=== PATIENT | female | born 1990 ===

== ENCOUNTER 2017-02-06 14:16 | Inpatient (IN) | payer MEDICAID ==
[2017-02-06 14:16] VITALS: BMI 45.3
[2017-02-06] MEDS ORDERED: Sodium Chloride 0.9% 1,000 ML IV ONE (15:12)
[2017-02-06] MEDS ORDERED: Sodium Chloride 0.9% 1,000 ML ONE ×2 (15:16→16:23)
[2017-02-06] MEDS ORDERED: Morphine 4 MG/ML VIAL ONE (15:16)
[2017-02-06 15:40] LABS: BASO % 0.2 % (0.0-2.0); EOS % 0.1 % (0.0-4.0); HEMATOCRIT 39.7 % (34.0-47.0); LYMPH # 0.8 K/uL (1.0-4.3); LYMPH % 5.3 % (20.0-40.0); MEAN CELL VOLUME 85.9 fL (81.0-99.0); MEAN CORPUSCULAR HEMOGLOBIN 28.5 pg (27.0-31.0); MEAN CORPUSCULAR HGB CONC 33.1 g/dL (33.0-37.0); MEAN PLATELET VOLUME 8.2 fL (7.2-11.7); MONO # 1.1 K/uL (0.0-0.8); MONO % 7.1 % (0.0-10.0); PLATELET COUNT 341 K/uL (130-400); WHITE BLOOD COUNT 15.3 K/uL (4.8-10.8)
[2017-02-06 15:47] LABS: RBC URINE 61 /hpf (0-3); URINE BACTERIA RARE (<OCC); URINE BILIRUBIN NEGATIVE (NEGATIVE); URINE BLOOD 2+ (NEGATIVE); URINE COLOR Yellow (YELLOW); URINE GLUCOSE (UA) NORMAL (Normal); URINE HYALINE CAST 0-2 /lpf (0-2); URINE KETONE NEGATIVE (NEGATIVE); URINE LEUKOCYTE ESTERASE TRACE Leu/uL (Negative); URINE PROTEIN 2+ mg/dL (NEGATIVE); URINE UROBILINOGEN NORMAL mg/dL (0.2-1.0); WBC URINE 15 /hpf (0-5)
--- NOTE | 2017-02-06 15:48 | C.PDOC ---
History Of Present Illness 26 y/o female brought in by EMS for evaluation of change in mental status and questionable seizure activity. Pt has not had xanax or oxycodone in the last 5 days. Patient's chronic pain medications discontinued by Dr Guillaume due to narcotic addiction. Pt with history of gastric bypass with multiple complications in 08/2016, with persistent Kingsley Pryor drains. Denies fever, chills, chest pain, SOB or any other complaints. Time Seen by Provider: 02/06/17 14:50 Chief Complaint (Nursing): Headache History Per: Patient History/Exam Limitations: no limitations Current Symptoms Are (Timing): Still Present Severity: Mild Preceeding Symptoms: None Recent travel outside of the [place]: No Past Medical History Reviewed: Historical Data, Nursing Documentation, Vital Signs Vital Signs: Last Vital Signs Temp 98.7 F 02/06/17 22:00 Pulse 104 H 02/06/17 22:00 Resp 18 02/06/17 22:00 BP 147/106 H 02/06/17 22:00 Pulse Ox 100 02/06/17 22:00 - Medical History PMH: HTN Denies: Chronic Kidney Disease - [facility] Procedures INSERTION OF INFUSION DEV INTO R BASILIC VEIN, PERC APPROACH (09/08/16) MANUAL ASSIST DELIV NEC (05/14/15) REPAIR OB LACERATION NEC (05/14/15) Family History: States: Unknown Family Hx - Social History Hx Tobacco Use: No Hx Alcohol Use: No Hx Substance Use: No - Immunization History Hx Tetanus Toxoid Vaccination: No Hx Influenza Vaccination: No Hx Pneumococcal Vaccination: No Review Of Systems Except As Marked, All Systems Reviewed And Found Negative. Constitutional: Negative for: Fever Cardiovascular: Negative for: Chest Pain Respiratory: Negative for: Shortness of Breath Gastrointestinal: Negative for: Vomiting Neurological: Positive for: Altered Mental Status. Negative for: Weakness, Numbness Physical Exam - Physical Exam Appears: Non-toxic, No Acute Distress, Other (obese) Skin: Warm, Dry, No Rash Head: Atraumatic, Normacephalic Eye(s): bilateral: Other (wide dilated pupils) Neck: Normal, Normal ROM, Supple Chest: Symmetrical, No Tenderness Cardiovascular: Rhythm Regular, No Murmur Respiratory: Normal Breath Sounds, No Rales, No Rhonchi, No Wheezing Gastrointestinal/Abdominal: Soft, No Tenderness, Other (3 drains to abdomen) Extremity: Normal ROM Extremity: Bilateral: Atraumatic Neurological/Psych: Other (bizarre) ED Course And Treatment - Laboratory Results Result Diagrams: 02/06/17 15:36 02/06/17 15:36 Lab Interpretation: Abnormal (lactate 6.3 H) ECG: Interpreted By Me ECG Rhythm: Sinus Tachycardia ECG Interpretation: Abnormal Rate From EC O2 Sat by Pulse Oximetry: 100 (room air) Pulse Ox Interpretation: Normal - Radiology CXR: Interpreted by Me CXR Interpretation: Yes: No Acute Disease, Other (good PICC line from L arm, ok for use.) - CT Scan/US CT Head Other Rad Studies (CT/US): Interpreted By Me, Read By Radiologist, Radiology Report Reviewed CT/US Interpretation: IMPRESSION: Patchy white matter hypodensities in the occipital parietal regions, right greater than left. 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 Recommend MRI for further evaluation. Findings discussed with Dr. Foley on 02/06/17 at 6:[address] A/P Other Rad Studies (CT/US): Interpreted By Me, Read By Radiologist, Radiology Report Reviewed CT/US Interpretation: IMPRESSION: No evidence of bowel obstruction. Postoperative findings consistent with prior bariatric surgery. Absence of oral contrast precludes optimal assessment of the stomach/gastric remnant and findings associated with the stomach and small bowel. Progress Note: Discussed case with Dr Guillaume at 1600, multiple recent CTs showing improvement, pending removal of drains. He referred patient to methadone clinic but patient has not followed up. Multiple family members at bedside. High blood pressure treated with lebatalol and nitro paste. Questionable anxiety and depression with decreased mental status prior to surgery . Paged ICU at 1840. d/w Dr. Narvaez-ICU @ 1930, ok to ICU. d/w Dr. Aguilar- Medicine Rn Acute Care- ok to Adm to ICU Reevaluation Time: 19:43 Reassessment Condition: Improved Critical Care Time - Critical Care Note Total Time (in mins): 90 Documented critical care: time excludes all time spent performing seperately billable procedures. Medical Decision Making Medical Decision Making: acute on chronic uncontrolled HTN narcotic and benzo withdrawal- longstanding oxycodone stopped about 4-5days ago Prior referral to [facility]- lost to follow-up chronic indwelling JOZEF drains from GBP surgery 08/25/[address] Guillaume @ [place]- encourages call for f/u by Surgery PRN: [phone] cell Surgical Consult not urgent at this time. Disposition Doctor Will See Patient In The: Hospital Counseled Patient/Family Regarding: Studies Performed, Diagnosis - Disposition Disposition: HOSPITALIZED Disposition Time: 19:46 Condition: FAIR - Clinical Impression Clinical Impression: Seizure, Narcotic withdrawal, Benzodiazepine withdrawal, Change in mental status - Scribe Statement The provider has reviewed the documentation as recorded by the William Valdovinos Provider Attestation: All medical record entries made by the William were at my direction and personally dictated by me. I have reviewed the chart and agree that the record accurately reflects my personal performance of the history, physical exam, medical decision making, and the department course for this patient. I have also personally directed, reviewed, and agree with the discharge instructions and disposition.
[2017-02-06 15:50] LABS: CHLORIDE 97 mmol/L (98-107); POTASSIUM 3.4 mmol/L (3.6-5.2); SODIUM 135 mmol/L (132-148)
[2017-02-06 15:51] LABS: ALB/GLOB RATIO 1.1 (1.0-2.1); ALKALINE PHOSPHATASE 87 U/L (38-126); ALT/SGPT 25 U/L (9-52); AST/SGOT 21 U/L (14-36); BILIRUBIN,TOTAL 0.6 mg/dL (0.2-1.3); BLOOD UREA NITROGEN 9 mg/dL (7-17); CALCIUM 9.2 mg/dl (8.6-10.4); CARBON DIOXIDE 24 mmol/L (22-30); GFR AFRICAN-AMERICAN > 60; GLUCOSE,RANDOM 101 mg/dL (65-105); TOTAL PROTEIN 8.1 g/dL (6.3-8.3)
[2017-02-06 15:59] LABS: NEUTROPHIL 96 % (50-75); TOTAL CELLS COUNTED 100
[2017-02-06] MEDS ORDERED: Labetalol 25mg/5ml Syringe IV STA ×2 (16:16→18:38)
[2017-02-06] MEDS ORDERED: Labetalol 25mg/5ml Syringe ONE ×2 (16:22→18:49)
[2017-02-06 16:25] LABS: VENOUS BLOOD GAS BASE EXCESS -5.8 mmol/L (0.0-2.0); VENOUS BLOOD GAS PCO2 32 mmHg (40-60); VENOUS BLOOD PH 7.37 (7.32-7.43)
--- NOTE | 2017-02-06 16:57 | RAD ---
HISTORY: confirm PICC line placement portable study performed 15:36. COMPARISON: No prior. FINDINGS: LUNGS: No active pulmonary disease. PLEURA: No significant pleural effusion identified, no pneumothorax apparent. CARDIOVASCULAR: No radiographic findings to suggest acute or significant cardiovascular disease. PICC line in satisfactory position OSSEOUS STRUCTURES: No significant abnormalities. VISUALIZED UPPER ABDOMEN: Normal. OTHER FINDINGS: None. IMPRESSION: Satisfactory position of recently placed PICC line. The tip is within 5 cm of the cavoatrial junction. No pneumothorax identified Concordant results with the preliminary interpretation rendered by the emergency department physician procedure.
[2017-02-06] MEDS ORDERED: Iohexol 350mg/ml 100 ML ONE (17:20)
--- NOTE | 2017-02-06 18:20 | CT ---
PROCEDURE: CT Abdomen and Pelvis with contrast HISTORY: bariatric 08/20, 3 drains, chronic pain COMPARISON: None. TECHNIQUE: Contrast dose: 100 cc Omnipaque 350 Radiation dose: Total exam DLP = 744.03 mGy-cm. This CT exam was performed using one or more of the following dose reduction techniques: Automated exposure control, adjustment of the mA and/or kV according to patient size, and/or use of iterative reconstruction technique. FINDINGS: LOWER THORAX: Esophagogastric stent identified. Fluid debris level identified in the esophagus. Incompletely visualized infiltrates/ atelectasis left lower lobe. Trace associated left pleural effusion. LIVER: Hepatic steatosis. No focal masses. No intrahepatic bile duct dilatation or perihepatic ascites. GALLBLADDER AND BILE DUCTS: Unremarkable. PANCREAS: Unremarkable. No gross lesion or ductal dilatation. SPLEEN: Unremarkable. ADRENALS: Unremarkable. No mass. KIDNEYS AND URETERS: Unremarkable. No hydronephrosis. No solid mass. VASCULATURE: Unremarkable. No aortic aneurysm. BOWEL: Postoperative changes left upper quadrant including the previously identified gastroesophageal stent. Portions of the stomach adjacent to the stent appear either at a focal for partial eventration of the diaphragm or small diaphragmatic hernia. Surgical drains in the left upper quadrant identified. Additional postoperative changes including a small bowel anastomotic suture line and small bowel loops tracking to the surface of the scan left upper quadrant/ostomy. Adjacent intraperitoneal loops of small bowel are unremarkable. APPENDIX: No abnormalities to suggest acute appendicitis. No right lower quadrant inflammatory processes identified. PERITONEUM: Unremarkable. No free fluid. No free air. LYMPH NODES: Unremarkable. No enlarged lymph nodes. BLADDER: Unremarkable. REPRODUCTIVE: Unremarkable. IUD identified precise location cannot be determined on this study. BONES: No acute fracture. OTHER FINDINGS: None. IMPRESSION: No evidence of bowel obstruction. Postoperative findings consistent with prior bariatric surgery. Absence of oral contrast precludes optimal assessment of the stomach/gastric remnant and findings associated with the stomach and small bowel.
--- NOTE | 2017-02-06 18:25 | CT ---
PROCEDURE: CT HEAD WITHOUT CONTRAST. HISTORY: seizure, HTN COMPARISON: None available. TECHNIQUE: Axial computed tomography images were obtained through the head/brain without intravenous contrast. Radiation dose: Total exam DLP = 1062.79 mGy-cm. This CT exam was performed using one or more of the following dose reduction techniques: Automated exposure control, adjustment of the mA and/or kV according to patient size, and/or use of iterative reconstruction technique. FINDINGS: HEMORRHAGE: No intracranial hemorrhage. BRAIN: No mass effect or edema. Patchy white matter hypodensities in the occipital parietal regions, right greater than left. Please note that MRI with diffusion imaging is more sensitive in the detection of acute ischemic event. VENTRICLES: No hydrocephalus. CALVARIUM: Unremarkable. PARANASAL SINUSES: Unremarkable as visualized. No significant inflammatory changes. MASTOID AIR CELLS: Unremarkable as visualized. No inflammatory changes. OTHER FINDINGS: None. IMPRESSION: Patchy white matter hypodensities in the occipital parietal regions, right greater than left. 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 Recommend MRI for further evaluation. Findings discussed with Dr. Foley on 02/06/17 at 6:23 p.m.
[2017-02-06] MEDS ORDERED: Nitroglycerin 2% Ointment Foilpak UD TOP STA (19:02)
[2017-02-06] MEDS ORDERED: Oxycodone/Acetaminophen 5/325 mg Tab PO PRN (19:58)
[2017-02-06] MEDS ORDERED: Nitroglycerin 2% Ointment Foilpak UD TOP ONE (20:01)
--- NOTE | 2017-02-06 20:07 | CP.PCM.CON ---
History of Present Illness - History of Present Illness History of Present Illness: 26F HTN, gastric sleeve 08/19, complicated by ?abscesses and has had multiple interventions, [address], sees surgeon at [facility], last visit as per family was last week. Pt has been on longstanding opiods (percocet, oxycontin) and benzo (xanax). After last visit, pt has not taken any more of these meds. Yesterday, as per mother, pt had an apparent period of AMS lasting approx 20min of which pt displayed "convulsions." Pt then came to. denies tongue biting, denies urinary / fecal incontinence. Pt has c/o headaches, dizziness. Fall today, nontraumatic. Pt with another such episode of "convulsions" today when family called EMS and pt brought to ED. In ED, pt found to be confused, tachycardic, hypertensive. CTH showed no cva/ hemorrhage but was suggestive of possible PRES. In ED, pt stabilized after receiving multiple rounds of labetolol and ativan. ICU now called for admission. PMH/Sx: As above NKDA MEDS: As noted above and as noted in MAR Sochx: No etoh/smoker/illicit drug use Famhx: otherwise Non contributory ROS: other than that listed above, negative PE: Afeb, HR 110s Bp 130s-150s / 90s - 110s RR 18 O2 Sat 99% on 2LNC Gen: lethargic but awake, follow commands Skin: w/d/i; no rashes HEENT: GO. MMM. Evidence of tongue biting Neck: Supple Resp: CTA B/L CVS: RRR. S1, S2. No m/r/g Abd: Soft, NT/ND, BS+ve Ext: No edema neuro: lethargic but awake, alert and oriented x2. CN II-->XII intact. non focal exam. labs reviewed personally as noted below EKG: ST. [facility]. No acute St-T abn CT Head: per radiology report, no acute ischemia/hemorrhage but evidence to suggest PRES CXR: No acute cardio-pulm disease per my read A/P: 26F s/p gastric sleeve, HTN p/w likley withdrawal seizures from BZD, opiod addiction, HTN urgency Admit to ICU Neuro consult per PMD consider EEG resume BZD -- will start klonipin BID; ativan PRN for breakthrough symptoms/ seizures resume PRN opiods for symptomatic relief addiction medicine consult per PMD cards consult per PMD BP control check echo trend enzymes check TSH NPO IVF resuscitation Munoz Gi / DVT PPx Prognosis guarded Long d/w family and discussed the importance of weaning medications and need to follow up with MD mckeon. Wilian Mc MD CC time spent 45min Past Patient History - Past Medical History & Family History Past Medical History?: No - Past Social History Smoking Status: Never Smoked - CARDIAC Hx Hypertension: Yes - PULMONARY Hx Respiratory Disorders: No - NEUROLOGICAL Hx Neurological Disorder: No - HEENT Hx HEENT Problems: No - RENAL Hx Chronic Kidney Disease: No - ENDOCRINE/METABOLIC Hx Endocrine Disorders: No - HEMATOLOGICAL/ONCOLOGICAL Hx Blood Disorders: No - INTEGUMENTARY Hx Dermatological Problems: No - MUSCULOSKELETAL/RHEUMATOLOGICAL Hx Musculoskeletal Disorders: No - GASTROINTESTINAL Hx Gastrointestinal Disorders: No - GENITOURINARY/GYNECOLOGICAL Hx Genitourinary Disorders: No - PSYCHIATRIC Hx Substance Use: No - SURGICAL HISTORY Other/Comment: GASTRIC SLEEVE 08/25/2016. BARIATRIC SX 01/2017 - ANESTHESIA Hx Anesthesia: Yes Meds Allergies/Adverse Reactions: Allergies Allergy/AdvReac Type Severity Reaction Status Date / Time No Known Allergies Allergy Verified 09/08/16 12:07 - Medications Medications: Current Medications Acetaminophen (Tylenol 325mg Tab) 650 mg PO Q6 PRN PRN Reason: Headache Amlodipine Besylate (Norvasc) 10 mg PO DAILY TIFFANIE Clonazepam (Klonopin) 0.5 mg PO BID TIFFANIE Enoxaparin Sodium (Lovenox) 40 mg SC DAILY TIFFANIE Famotidine (Pepcid) 20 mg PO Q12 TIFFANIE Hydromorphone HCl (Dilaudid) 1 mg IVP Q6H PRN PRN Reason: Pain, severe (8-10) Sodium Chloride (Sodium Chloride 0.9%) 1,000 mls @ 100 mls/hr IV .Q10H TIFFANIE Labetalol HCl (Trandate) 400 mg PO Q6 TIFFANIE Lorazepam (Ativan) 2 mg IVP Q2H PRN PRN Reason: Anxiety Morphine Sulfate (Morphine) 4 mg IVP Q4H PRN PRN Reason: Pain, moderate (4-7) Ondansetron HCl (Zofran Inj) 4 mg IVP Q6H PRN PRN Reason: Nausea/Vomiting Oxycodone/Acetaminophen (Percocet 5/325 Mg Tab) 1 tab PO Q4H PRN PRN Reason: Pain, Mild (1-3) Stop: 02/09/17 19:59 Results - Vital Signs Recent Vital Signs: Last Vital Signs Temp 98.8 F 02/06/17 14:18 Pulse 105 H 02/06/17 19:04 Resp 20 02/06/17 19:04 BP 138/96 H 02/06/17 19:04 Pulse Ox 100 02/06/17 19:58 - Labs Result Diagrams: 02/06/17 15:36 02/06/17 15:36
[2017-02-06 20:23] LABS: VENOUS BLOOD GAS BASE EXCESS 0.1 mmol/L (0.0-2.0); VENOUS BLOOD GAS PCO2 39 mmHg (40-60); VENOUS BLOOD PH 7.41 (7.32-7.43)
[2017-02-06] MEDS: Sodium Chloride 0.9% 1,000 ML IV SCH (21:15)
[2017-02-07] MEDS: Sodium Chloride 0.9% 1,000 ML IV SCH ×2 (06:35→16:48)
[2017-02-07] MEDS: Morphine 4 MG/ML VIAL IVP PRN ×3 (06:36→20:24)
[2017-02-07 06:40] LABS: BASO % 0.4 % (0.0-2.0); EOS % 0.2 % (0.0-4.0); LYMPH # 1.2 K/uL (1.0-4.3); LYMPH % 12.7 % (20.0-40.0); MEAN CELL VOLUME 86.7 fL (81.0-99.0); MEAN CORPUSCULAR HEMOGLOBIN 29.1 pg (27.0-31.0); MEAN CORPUSCULAR HGB CONC 33.5 g/dL (33.0-37.0); MEAN PLATELET VOLUME 8.5 fL (7.2-11.7); MONO # 0.9 K/uL (0.0-0.8); MONO % 9.1 % (0.0-10.0); RED CELL DISTRIBUTION WIDTH 13.6 % (11.5-14.5); WHITE BLOOD COUNT 9.8 K/uL (4.8-10.8)
[2017-02-07 06:49] LABS: INR 1.1
[2017-02-07 07:11] LABS: CHLORIDE 100 mmol/L (98-107)
[2017-02-07 07:12] LABS: POTASSIUM 3.3 mmol/L (3.6-5.2); SODIUM 134 mmol/L (132-148)
[2017-02-07 07:14] LABS: ALKALINE PHOSPHATASE 68 U/L (38-126); ALT/SGPT 20 U/L (9-52); AST/SGOT 20 U/L (14-36); BILIRUBIN,TOTAL 0.6 mg/dL (0.2-1.3); BLOOD UREA NITROGEN 9 mg/dL (7-17); CARBON DIOXIDE 26 mmol/L (22-30); GFR AFRICAN-AMERICAN > 60; GLUCOSE,RANDOM 103 mg/dL (65-105); TOTAL PROTEIN 6.7 g/dL (6.3-8.3)
[2017-02-07 07:15] LABS: CALCIUM 8.7 mg/dl (8.6-10.4); MAGNESIUM 1.7 mg/dL (1.6-2.3); PHOSPHOROUS 4.5 mg/dL (2.5-4.5)
[2017-02-07 07:30] LABS: THYROID STIMULATING HORMONE 1.51 mIU/L (0.46-4.68)
[2017-02-07] MEDS ORDERED: Magnesium Sulfate 1 gm in D5W 1 GM/100 ML BAG IVPB ONE (07:41)
[2017-02-07] MEDS: Enoxaparin 40 mg Syringe SC SCH (09:28)
[2017-02-07] MEDS: HYDROmorphone 1 mg/ml ISec IVP PRN ×3 (09:38→22:03)
--- NOTE | 2017-02-07 11:55 | CARD ---
APPROVED REPORT EKG Measurement Heart [id number] <Conclusion> Sinus tachycardia Voltage criteria for left ventricular hypertrophy Cannot rule out Anterior infarct, age undetermined Abnormal ECG
--- NOTE | 2017-02-07 12:19 | CP.PCM.CON ---
<Naeem Garcia - Last Filed: 02/07/17 12:20> History of Present Illness - History of Present Illness History of Present Illness: Surgery: Dr. Bronson CC: s/p bariatric surgery w. intra-abdominal drains HPI: Hx gathered from pt, review of chart, and from discussion w. bariatric surgeon Dr. Clark - . Pt is a 26F w. underwent gastric sleeve in August of 2016. Post-operative course was complicated by leak which required further surgical intervention involving Tahl patch, gastro-jejunostomy? , esophogastric stent, and hilario drain placement x 3. Per Dr. Clark, pt was taking narcotics frequently to manage pain, and recently stopped taking them abruptly. Dr. lCark recommended that pt be seen by substance abuse councilors. Dr. Clark also stated that he would be willing to accept transfer to [facility]. Yesterday pt had witnessed seizure like activity for about 20 minutes at home and was subsequently brought to ED. This morning pt was seen in ICU. Pt is lethargic and at times confused. Questions need to be repeated several times. Currently pt states that she is feeling well. She denies DIEZ/blurred vision, no F /C, no CP/palpitations, no SOB/cough. She has no GI complaints, no N/V/D. Pt initially had 3 hilario drains placed. However 2 of them have become displaced. Pt is unable to specify when this occurred. The drain sites are draining pus. CT done in ED of abd pelvis shows post-surgical changes w. no identifiable abscess/fluid collections. PMH: HTN, obesity PSH: see above Meds: MAR reviewed NKDA Social: No ETOH, tobacco, drugs Fhx: Non-contributory Review of Systems - Review of Systems All systems: reviewed and no additional remarkable complaints except (HPI) Past Patient History - Past Medical History & Family History Past Medical History?: Yes - Past Social History Smoking Status: Never Smoked - CARDIAC Hx Hypertension: Yes - PULMONARY Hx Respiratory Disorders: No - NEUROLOGICAL Hx Neurological Disorder: No - HEENT Hx HEENT Problems: No - RENAL Hx Chronic Kidney Disease: No - ENDOCRINE/METABOLIC Hx Endocrine Disorders: No - HEMATOLOGICAL/ONCOLOGICAL Hx Blood Disorders: No - INTEGUMENTARY Hx Dermatological Problems: No - MUSCULOSKELETAL/RHEUMATOLOGICAL Hx Musculoskeletal Disorders: No Hx Falls: No - GASTROINTESTINAL Hx Gastrointestinal Disorders: No - GENITOURINARY/GYNECOLOGICAL Hx Genitourinary Disorders: No - PSYCHIATRIC Hx Substance Use: No - SURGICAL HISTORY Other/Comment: GASTRIC SLEEVE 08/25/2016. BARIATRIC SX 01/2017 - ANESTHESIA Hx Anesthesia: Yes Meds Allergies/Adverse Reactions: Allergies Allergy/AdvReac Type Severity Reaction Status Date / Time No Known Allergies Allergy Verified 09/08/16 12:07 - Medications Medications: Current Medications Acetaminophen (Tylenol 325mg Tab) 650 mg PO Q6 PRN PRN Reason: Headache Amlodipine Besylate (Norvasc) 10 mg PO DAILY [facility] TO [facility] Last Admin: 02/07/17 09:28 Dose: 10 mg Clonazepam (Klonopin) 0.5 mg PO BID [facility] Last Admin: 02/07/17 09:28 Dose: 0.5 mg Enoxaparin Sodium (Lovenox) 40 mg SC DAILY [facility] Last Admin: 02/07/17 09:28 Dose: 40 mg Famotidine (Pepcid) 20 mg PO Q12 [facility]END[facility] Last Admin: 02/07/17 09:28 Dose: 20 mg Hydromorphone HCl (Dilaudid) 1 mg IVP Q6H PRN PRN Reason: Pain, severe (8-10) Last Admin: 02/07/17 09:38 Dose: 1 mg Sodium Chloride (Sodium Chloride 0.9%) 1,000 mls @ 100 mls/hr IV .Q10H [facility]END[facility] S[facility] TO [facility] Last Admin: 02/07/17 06:35 Dose: Not Given Labetalol HCl (Trandate) 400 mg PO Q6 [facility] Last Admin: 02/07/17 06:35 Dose: 400 mg Lorazepam (Ativan) 2 mg IVP Q2H PRN PRN Reason: Anxiety Morphine Sulfate (Morphine) 4 mg IVP Q4H PRN PRN Reason: Pain, moderate (4-7) Last Admin: 02/07/17 06:36 Dose: 4 mg Ondansetron HCl (Zofran Inj) 4 mg IVP Q6H PRN PRN Reason: Nausea/Vomiting Oxycodone/Acetaminophen (Percocet 5/325 Mg Tab) 1 tab PO Q4H PRN PRN Reason: Pain, Mild (1-3) Stop: 02/09/17 19:59 Pneumococcal Polyvalent Vaccine (Pneumovax 23 Vaccine) 0.5 ml IM .ONCE ONE Stop: 02/08/17 10:01 Physical Exam - Constitutional Appears: Non-toxic, No Acute Distress, Confused Additional comments: lethargic - Head Exam Head Exam: ATRAUMATIC, NORMOCEPHALIC - Eye Exam Eye Exam: EOMI - ENT Exam ENT Exam: Mucous Membranes Moist - Neck Exam Neck exam: Positive for: Full Rom - Respiratory Exam Respiratory Exam: NORMAL BREATHING PATTERN. absent: Accessory Muscle Use, Respiratory Distress - GI/Abdominal Exam GI & Abdominal Exam: Soft. absent: Distended, Firm, Guarding, Rebound, Rigid, Tenderness Additional comments: R side abdominal hilario in place draining purulent fluid Former drains in L side abd x 2, sites are draining purulent fluid - Extremities Exam Extremities exam: Negative for: calf tenderness, pedal edema - Neurological Exam Neurological exam: Alert, Oriented x3 Results - Vital Signs Recent Vital Signs: Last Vital Signs Temp 99.4 F 02/07/17 00:00 Pulse 106 H 02/07/17 07:05 Resp 21 02/07/17 07:05 BP 133/94 H 02/07/17 07:05 Pulse Ox 100 02/07/17 07:05 - Labs Result Diagrams: 02/07/17 06:25 02/07/17 06:26 Labs: Laboratory Results - last 24 hr 02/06/17 02/06/17 02/07/17 20:19 22:04 02:06 WBC RBC Hgb Hct MCV MCH MCHC RDW Plt Count MPV Neut % (Auto) Lymph % (Auto) [place] % (Auto) Eos % (Auto) Baso % (Auto) Neut # Lymph # [place] # Eos # Baso # PT INR APTT pO2 42 VBG pH 7.41 VBG pCO2 39 L VBG HCO3 24.5 VBG Total CO2 25.9 VBG O2 Sat (Calc) 80.8 H VBG Base Excess 0.1 VBG Potassium 3.4 L Sodium 137.0 Chloride 104.0 Glucose 110 H Lactate 1.4 Potassium Carbon Dioxide Anion Gap BUN Creatinine Est GFR ( Amer) Est GFR (Non-Af Amer) POC Glucose (mg/dL) 104 103 Random Glucose Calcium Phosphorus Magnesium Total Bilirubin AST ALT Alkaline Phosphatase Total Creatine Kinase CK-MB (Mass) Troponin I Total Protein Albumin Globulin Albumin/Globulin Ratio TSH 3rd Generation Venous Blood Potassium 3.4 L 02/07/17 02/07/17 02/07/17 04:00 06:18 06:25 WBC 9.8 RBC 3.92 Hgb 11.4 Hct 34.0 MCV 86.7 MCH 29.1 MCHC 33.5 RDW 13.6 Plt Count 242 MPV 8.5 Neut % (Auto) 77.6 H Lymph % (Auto) 12.7 L [place] % (Auto) 9.1 Eos % (Auto) 0.2 Baso % (Auto) 0.4 Neut # 7.6 H Lymph # 1.2 [place] # 0.9 H Eos # 0.0 Baso # 0.0 PT 13.1 H INR 1.1 APTT 23 pO2 VBG pH VBG pCO2 VBG HCO3 VBG Total CO2 VBG O2 Sat (Calc) VBG Base Excess VBG Potassium Sodium Chloride Glucose Lactate Potassium Carbon Dioxide Anion Gap BUN Creatinine Est GFR ( Amer) Est GFR (Non-Af Amer) POC Glucose (mg/dL) 119 H Random Glucose Calcium Phosphorus Magnesium Total Bilirubin AST ALT Alkaline Phosphatase Total Creatine Kinase CK-MB (Mass) Troponin I Total Protein Albumin Globulin Albumin/Globulin Ratio TSH 3rd Generation Venous Blood Potassium 02/07/17 02/07/17 02/07/17 06:26 07:40 11:49 WBC RBC Hgb Hct MCV MCH MCHC RDW Plt Count MPV Neut % (Auto) Lymph % (Auto) [place] % (Auto) Eos % (Auto) Baso % (Auto) Neut # Lymph # [place] # Eos # Baso # PT INR APTT pO2 VBG pH VBG pCO2 VBG HCO3 VBG Total CO2 VBG O2 Sat (Calc) VBG Base Excess VBG Potassium Sodium 134 Chloride 100 Glucose Lactate Potassium 3.3 L Carbon Dioxide 26 Anion Gap 11 BUN 9 Creatinine 0.4 L Est GFR ( Amer) > 60 Est GFR (Non-Af Amer) > 60 POC Glucose (mg/dL) 104 111 H Random Glucose 103 Calcium 8.7 Phosphorus 4.5 Magnesium 1.7 Total Bilirubin 0.6 AST 20 ALT 20 Alkaline Phosphatase 68 Total Creatine Kinase 29 L CK-MB (Mass) < 0.22 Troponin I < 0.0120 Total Protein 6.7 Albumin 3.4 L Globulin 3.3 Albumin/Globulin Ratio 1.0 TSH 3rd Generation 1.51 Venous Blood Potassium - Imaging and Cardiology CT scan - abdomen Status: Image reviewed by me, Report reviewed by me CT scan - head Status: Image reviewed by me, Report reviewed by me Assessment & Plan - Assessment and Plan (Free Text) Assessment: 26F w. seizure like activity likely 2/2 narcotic withdrawals and intra- abdominal drain in place 2/2 bariatric surgery complications -Per discussion wKacie Clark, phone # [phone] -symptoms likely 2/2 withdrawals given long hx of narcotic use for post- operative pain, recommends substance abuse counceling -He is willing to accept transfer to [facility] -He would like to speak w. medical team, this message was relayed to drapery hemmer automatic in person -No plans for surgical intervention -Pt can follow up wKacie Clark following d/c or can be transferred to [facility] -case d/w attending Radha PGY2 <Wilman Bronson - Last Filed: 02/12/17 22:35> Results - Vital Signs Recent Vital Signs: Last Vital Signs Temp 100 F H 02/10/17 18:35 Pulse 112 H 02/10/17 15:32 Resp 20 02/10/17 15:32 BP 121/81 02/10/17 18:35 Pulse Ox 95 02/10/17 15:32 - Labs Result Diagrams: 02/10/17 07:03 02/10/17 07:03 Attending/Attestation - Attestation I have personally seen and examined this patient.: Yes I have fully participated in the care of the patient.: Yes I have reviewed all pertinent clinical information: Yes Notes (Text): 02/12/17 22:34 Pt was seen and examined at bedside on 02/08/2017 Agree with above note and assessment Pt with abdominal pain and multiple drain S/P Gastric Sleeve No need for surgical intervention at present Plan d.w pt's family in detail Risk and benefit explained in detail.
--- NOTE | 2017-02-07 13:45 | CP.PCM.HP ---
History of Present Illness - History of Present Illness History of Present Illness: COMPREHENSIVE HISTORY & PHYSICAL EXAM HPI 26F HTN, gastric sleeve 08/19, complicated by abscesses and has had multiple interventions, [address], sees surgeon DR. MATTHEW at [facility], last visit as per family was last week. Pt has been on longstanding opiods (percocet, oxycontin) and benzo (xanax). After last visit, pt has not taken any more of these meds. Yesterday, as per mother, pt had an apparent period of AMS lasting approx 20min Pt then came to. denies tongue biting, denies urinary / fecal incontinence. IN ER PT HAD BP OF 180/[address] HEAD . PT WAS STABILIZED WITH IV LABETOLOL AND ATIVAN PAST HIST. HTN /GASTRIC SLEEVE SURGERY 08/19 AND MULTIPLE REVISION FOR LEAKAGES WITH 3 AD TUBES PERSONAL HIST: Smoking. N Alcohol. N Allergy N Travel_- . FAMILY HIST : ROS : Constitutional: Negative for weight change, chills, night sweats, fatigue and usage of assist device. Eyes: Negative for redness, swelling, itching, discharge, vision changes, blurry vision, double vision, glaucoma, cataracts, Ears: Negative for hearing loss, ringing, , tinnitus, vertigo Nose: Negative for rhinorrhea, stuffiness, sniffing, itching, postnasal drip, discoloration, nasal congestion and epistaxis. Throat: Negative for throat clearing, sore throat, hoarseness, difficulty swallowing and difficulty speaking. Respiratory: Negative for cough, chest tightness, sputum or phlegm, chronic cough, hemoptysis, wheezing, snoring at night, pleuritic chest pain and daytime somnolence. Cardiovascular: Negative for chest pain, palpitations, orthopnea, PND, Edema of legs, leg cramps, angina, claudication, , irregular heartbeat, Neurology: PERIODS OF CONFUSION . NO FOCAL DEFICIT Gastrointestinal: Negative for difficulty swallowing, diarrhea, constipation, black stools, rectal bleeding , nausea, flatulence, reflux, poor appetite, changes in bowel habits, abdominal pain Genitourinary: Negative for frequent urination, hematuria, discharge, incontinence, urinary retention, frequent UTI, Psychiatric: Negative for depression, anxiety/panic, suicidal tendencies, Musculoskeletal: Negative for swollen joints, back pain, , neck pain, morning stiffness of joints, . Skin: Negative for rash, ulcers, itching, dry skin and pigmented lesions. P/E: Constitutional: Appears stated age and in no apparent distress. Head: Normocephalic. Ears: External ear canals patent without inflammation. Tympanic membranes intact with normal light reflex and landmark. Eyes: Pupils are central, bilaterally equal, symmetrical and reacts to light with normal movements and no icterus or pallor. Nose: External nares are patent. Mucosa is pink Mouth-Throat: Good general appearance and condition. No post-pharyngeal/oropharyngeal erythema and tonsillar hypertrophy. Good dental hygiene. Neck-Lymphatic: Neck is supple with normal ROM, no thyromegaly, lymph nodes or masses. JVD is normal with no carotid bruit. Lungs: Clear to percussion and auscultation with bilateral normal air entry. Cardiovascular: S1 and S2 are normal with no murmurs, gallops and rub. GI Exam: No hepatomegaly. Abdomen is soft and -tender. No Organomegaly , 3 AD DRAINAGE TUBES DRAINING PURULENT DISCHARGE Neurology: Higher function and all cranial nerves intact, with no gross motor or sensory deficit. Superficial and deep reflexes are normal with downwards planters. No cerebellar deficit with normal gait. Musculoskeletal: No tender spots with normal curvature of the spine with no swelling or restricted ROM of the small and large joints. Extremities: Homans sign absent. Intact pulses with no pitting edema, calf tenderness or skin color changes. Skin: No rash, eruptions or abnormal skin pigmentation LAB/RADIOLOGY: ASSESMENT : ? NARCOTIC WITHDRAWL SEIZURES ACCELERATED HTN GASTRIC SLEEVE SURGERY WITH COMPLICATION DRAINING PUS FROM B-TUBE PLAN: STABILIZE BP NEURO EVAL F/U WITH SURGERY Present on Admission - Present on Admission Any Indicators Present on Admission: No History of DVT/PE: No History of Uncontrolled Diabetes: No Urinary Catheter: No Decubitus Ulcer Present: No History Surgical Site Infection Following: Bariatric Surgery (3 AD TUBES DRAINING PUS ) Past Patient History - Past Medical History & Family History Past Medical History?: Yes - Past Social History Smoking Status: Never Smoked - CARDIAC Hx Hypertension: Yes - PULMONARY Hx Respiratory Disorders: No - NEUROLOGICAL Hx Neurological Disorder: No - HEENT Hx HEENT Problems: No - RENAL Hx Chronic Kidney Disease: No - ENDOCRINE/METABOLIC Hx Endocrine Disorders: No - HEMATOLOGICAL/ONCOLOGICAL Hx Blood Disorders: No - INTEGUMENTARY Hx Dermatological Problems: No - MUSCULOSKELETAL/RHEUMATOLOGICAL Hx Musculoskeletal Disorders: No Hx Falls: No - GASTROINTESTINAL Hx Gastrointestinal Disorders: No - GENITOURINARY/GYNECOLOGICAL Hx Genitourinary Disorders: No - PSYCHIATRIC Hx Substance Use: No - SURGICAL HISTORY Other/Comment: GASTRIC SLEEVE 08/25/2016. BARIATRIC SX 01/2017 - ANESTHESIA Hx Anesthesia: Yes Meds Allergies/Adverse Reactions: Allergies Allergy/AdvReac Type Severity Reaction Status Date / Time No Known Allergies Allergy Verified 09/08/16 12:07 Results - Vital Signs Recent Vital Signs: Last Vital Signs Temp 99.4 F 02/07/17 00:00 Pulse 106 H 02/07/17 07:05 Resp 21 02/07/17 07:05 BP 133/94 H 02/07/17 07:05 Pulse Ox 100 02/07/17 07:05 - Labs Result Diagrams: 02/07/17 06:25 02/07/17 06:26 Labs: Laboratory Results - last 24 hr 02/06/17 02/06/17 02/07/17 20:19 22:04 02:06 WBC RBC Hgb Hct MCV MCH MCHC RDW Plt Count MPV Neut % (Auto) Lymph % (Auto) [place] % (Auto) Eos % (Auto) Baso % (Auto) Neut # Lymph # [place] # Eos # Baso # PT INR APTT pO2 42 VBG pH 7.41 VBG pCO2 39 L VBG HCO3 24.5 VBG Total CO2 25.9 VBG O2 Sat (Calc) 80.8 H VBG Base Excess 0.1 VBG Potassium 3.4 L Sodium 137.0 Chloride 104.0 Glucose 110 H Lactate 1.4 Potassium Carbon Dioxide Anion Gap BUN Creatinine Est GFR ( Amer) Est GFR (Non-Af Amer) POC Glucose (mg/dL) 104 103 Random Glucose Calcium Phosphorus Magnesium Total Bilirubin AST ALT Alkaline Phosphatase Total Creatine Kinase CK-MB (Mass) Troponin I Total Protein Albumin Globulin Albumin/Globulin Ratio TSH 3rd Generation Venous Blood Potassium 3.4 L 02/07/17 02/07/17 02/07/17 04:00 06:18 06:25 WBC 9.8 RBC 3.92 Hgb 11.4 Hct 34.0 MCV 86.7 MCH 29.1 MCHC 33.5 RDW 13.6 Plt Count 242 MPV 8.5 Neut % (Auto) 77.6 H Lymph % (Auto) 12.7 L [place] % (Auto) 9.1 Eos % (Auto) 0.2 Baso % (Auto) 0.4 Neut # 7.6 H Lymph # 1.2 [place] # 0.9 H Eos # 0.0 Baso # 0.0 PT 13.1 H INR 1.1 APTT 23 pO2 VBG pH VBG pCO2 VBG HCO3 VBG Total CO2 VBG O2 Sat (Calc) VBG Base Excess VBG Potassium Sodium Chloride Glucose Lactate Potassium Carbon Dioxide Anion Gap BUN Creatinine Est GFR ( Amer) Est GFR (Non-Af Amer) POC Glucose (mg/dL) 119 H Random Glucose Calcium Phosphorus Magnesium Total Bilirubin AST ALT Alkaline Phosphatase Total Creatine Kinase CK-MB (Mass) Troponin I Total Protein Albumin Globulin Albumin/Globulin Ratio TSH 3rd Generation Venous Blood Potassium 02/07/17 02/07/17 02/07/17 06:26 07:40 11:49 WBC RBC Hgb Hct MCV MCH MCHC RDW Plt Count MPV Neut % (Auto) Lymph % (Auto) [place] % (Auto) Eos % (Auto) Baso % (Auto) Neut # Lymph # [place] # Eos # Baso # PT INR APTT pO2 VBG pH VBG pCO2 VBG HCO3 VBG Total CO2 VBG O2 Sat (Calc) VBG Base Excess VBG Potassium Sodium 134 Chloride 100 Glucose Lactate Potassium 3.3 L Carbon Dioxide 26 Anion Gap 11 BUN 9 Creatinine 0.4 L Est GFR ( Amer) > 60 Est GFR (Non-Af Amer) > 60 POC Glucose (mg/dL) 104 111 H Random Glucose 103 Calcium 8.7 Phosphorus 4.5 Magnesium 1.7 Total Bilirubin 0.6 AST 20 ALT 20 Alkaline Phosphatase 68 Total Creatine Kinase 29 L CK-MB (Mass) < 0.22 Troponin I < 0.0120 Total Protein 6.7 Albumin 3.4 L Globulin 3.3 Albumin/Globulin Ratio 1.0 TSH 3rd Generation 1.51 Venous Blood Potassium
--- NOTE | 2017-02-07 14:19 | CARD ---
APPROVED REPORT EXAM: Two-dimensional and M-mode echocardiogram with Doppler and color Doppler. Other Information Quality : AverageRhythm : NSR INDICATION SEIZURE RISK FACTORS Hypertension M-Mode DIMENSIONS RVDd1.27 (2.1-3.2cm)Left Atrium (MM)3.03 (2.5-4.0cm) IVSd1.01 (0.7-1.1cm)Aortic Root2.93 (2.2-3.7cm) LVDd4.36 (4.0-5.6cm)Aortic Cusp Exc.2.05 (1.5-2.0cm) PWd1.11 (0.7-1.1cm)FS (%) 30 % LVDs3.06 (2.0-3.8cm)LVEF (%)57 (>50%) Aortic Valve AoV Peak Bodjlggg883.9cm/Abby Peak GR.7mmHg Mitral Valve MV E Mxdmcfeu165.1cm/sMV A Nlvgsilv86.4cm/sE/A ratio1.8 TDI E/Lateral E'0.0E/Medial E'0.0 LEFT VENTRICLE The left ventricle is normal size. There is normal left ventricular wall thickness. The left ventricular function is normal. The left ventricular ejection fraction is within the normal range. No regional wall motion abnormalities noted. The left ventricular diastolic function is normal. No left ventricle thrombus noted on this study. There is no ventricular septal defect visualized. There is no left ventricular aneurysm. There is no mass noted in the left ventricle. RIGHT VENTRICLE The right ventricle is normal size. There is normal right ventricular wall thickness. The right ventricular systolic function is normal. ATRIA The left atrium size is normal. The right atrium size is normal. The interatrial septum is intact with no evidence for an atrial septal defect. AORTIC VALVE The aortic valve is normal in structure and function. No aortic regurgitation is present. There is no aortic valvular stenosis. There is no aortic valvular vegetation. MITRAL VALVE The mitral valve is normal in structure and function. There is no evidence of mitral valve prolapse. There is no mitral valve stenosis. There is no mitral valve regurgitation noted. TRICUSPID VALVE The tricuspid valve is normal in structure and function. There is no tricuspid valve regurgitation noted. There is no tricuspid valve prolapse or vegetation. There is no tricuspid valve stenosis. PULMONIC VALVE The pulmonary valve is normal in structure and function. There is no pulmonic valvular regurgitation. There is no pulmonic valvular stenosis. GREAT VESSELS The aortic root is normal in size. The ascending aorta is normal in size. The pulmonary artery is normal. The IVC is normal in size and collapses >50% with inspiration. PERICARDIAL EFFUSION The pericardium appears normal. There is no pleural effusion. <Conclusion> The left ventricular function is normal. The left ventricular ejection fraction is within the normal range. No regional wall motion abnormalities noted.
--- NOTE | 2017-02-07 14:33 | CP.CCUPN ---
<Tim Fernandez - Last Filed: 02/07/17 14:29> CCU Subjective - Physician Review Subjective (Free Text): 02/07/17 14:29 Patient seen and examined at bedside. No acute events overnight. No acute distress. Nursing staff reports no issues. Patient denies fever, chills, N/V/D/C , chest pain, SOB, cough, abdominal pain, and numbness or tingling. Today, patient remains hypertensive. Per Dr. Ponce's request, mag sulfate 2g was given for BP control. The patient is pending MRI Brain w/ and w/o contrast. The patient was seen by the surgical team as well following rounds. Dr. Garay was also consulted to see the patient. The patient was started on Keppra 500mg IV BID. Prior to rounds, the patient's potassium was replaced. Critical Care Time Spent (in minutes): 90 CCU Objective - Vital Signs / Intake & Output Intake and Output (Last 8hrs): Intake & Output 02/06/17 02/07/17 02/07/17 22:59 06:59 14:59 Intake Total 150 830 Output Total 200 470 Balance -50 360 Weight 77.564 kg Intake: Intake, IV Amount 100 800 Right Hand 100 800 Oral 50 30 Output: Drainage 0 Right Medial Abdomen 0 Urine 200 470 Urethral (Bowman) 200 470 - Physical Exam Head: Positive for: Atraumatic, Normocephalic Pupils: Positive for: PERRL Extroacular Muscles: Positive for: EOMI Conjunctiva: Positive for: Normal. Negative for: Injected Mouth: Positive for: Moist Mucous Membranes. Negative for: Drooling Nose (External): Positive for: Atraumatic Neck: Positive for: Normal Range of Motion. Negative for: JVD, Lymphadenopathy Respiratory/Chest: Positive for: Clear to Auscultation, Good Air Exchange. Negative for: Respiratory Distress, Accessory Muscle Use, Wheezes, Rales, Rhonchi Cardiovascular: Positive for: Regular Rate and Rhythm, Normal S1, S2, Peripheal Pulses Present. Negative for: Murmurs Abdomen: Positive for: Tenderness (diffuse), Normal Bowel Sounds, Scars. Negative for: Distention, Peritoneal Signs, Rebound, Guarding Back: Positive for: Normal Inspection. Negative for: CVA Tenderness Upper Extremity: Positive for: Normal Inspection, Normal ROM, NORMAL PULSES, Neurovascularly Intact, Capillary Refill < 2s. Negative for: Cyanosis, Edema Lower Extremity: Positive for: Normal Inspection, NORMAL PULSES, Normal ROM, Neurovascularly Intact, Capillary Refill < 2 s. Negative for: Edema, CALF TENDERNESS, Tenderness Neurological: Positive for: CN II-XII Intact, Speech Normal Skin: Positive for: Warm, Dry, Normal Color. Negative for: Rashes Psychiatric: Positive for: Alert, Oriented x 3. Negative for: Normal Affect - Medications Active Medications: Active Medications Generic Name Dose Route Start Last Admin Trade Name Freq PRN Reason Stop Dose Admin Acetaminophen 650 mg 02/06/17 19:58 Tylenol 325mg Tab PO Q6 PRN Headache Amlodipine Besylate 10 mg 02/06/17 20:04 02/07/17 09:28 Norvasc PO 10 mg DAILY TIFFANIE Administration Clonazepam 0.5 mg 02/06/17 20:15 02/07/17 09:28 Klonopin PO 0.5 mg BID TIFFANIE Administration Enoxaparin Sodium 40 mg 02/07/17 10:00 02/07/17 09:28 Lovenox SC 40 mg DAILY TIFFANIE Administration Famotidine 20 mg 02/06/17 22:00 02/07/17 09:28 Pepcid PO 20 mg Q12 TIFFANIE Administration Hydromorphone HCl 1 mg 02/06/17 19:58 02/07/17 09:38 Dilaudid IVP 1 mg Q6H PRN Administration Pain, severe (8-10) Sodium Chloride 1,000 mls @ 100 mls/hr 02/06/17 20:00 02/07/17 06:35 Sodium Chloride 0.9% IV Not Given .Q10H TIFFANIE Levetiracetam 500 mg/ Sodium 105 mls @ 420 mls/hr 02/07/17 14:15 Chloride IVPB Q12H TIFFANIE Magnesium Sulfate/Dextrose 1 gm in 100 mls @ 200 mls/hr 02/07/17 14:15 Magnesium Sulfate 1 Gm/100 Ml D5w IVPB 02/07/17 15:14 Q30M TIFFANIE Labetalol HCl 400 mg 02/07/17 00:00 02/07/17 13:13 Trandate PO 400 mg Q6 TIFFANIE Administration Lorazepam 2 mg 02/06/17 20:04 Ativan IVP Q2H PRN Anxiety Morphine Sulfate 4 mg 02/06/17 19:58 02/07/17 13:14 Morphine IVP 4 mg Q4H PRN Administration Pain, moderate (4-7) Ondansetron HCl 4 mg 02/06/17 19:58 Zofran Inj IVP Q6H PRN Nausea/Vomiting Oxycodone/Acetaminophen 1 tab 02/06/17 19:58 Percocet 5/325 Mg Tab PO 02/09/17 19:59 Q4H PRN Pain, Mild (1-3) Pneumococcal Polyvalent Vaccine 0.5 ml 02/08/17 10:00 Pneumovax 23 Vaccine IM 02/08/17 10:01 .ONCE ONE - Patient Studies Lab Studies: Lab Studies 02/07/17 02/07/17 02/07/17 Range/Units 11:49 07:40 06:26 WBC (4.8-10.8) K/uL RBC (3.80-5.20) Mil/uL Hgb (11.0-16.0) g/dL Hct (34.0-47.0) % MCV (81.0-99.0) fL MCH (27.0-31.0) pg MCHC (33.0-37.0) g/dL RDW (11.5-14.5) % Plt Count (130-400) K/uL MPV (7.2-11.7) fL Neut % (Auto) (50.0-75.0) % Lymph % (Auto) (20.0-40.0) % Spencer % (Auto) (0.0-10.0) % Eos % (Auto) (0.0-4.0) % Baso % (Auto) (0.0-2.0) % Neut # (1.8-7.0) K/uL Lymph # (1.0-4.3) K/uL Spencer # (0.0-0.8) K/uL Eos # (0.0-0.7) K/uL Baso # (0.0-0.2) K/uL PT (9.7-12.2) SECONDS INR APTT (21-34) SECONDS pO2 (30-55) mm/Hg VBG pH (7.32-7.43) VBG pCO2 (40-60) mmHg VBG HCO3 mmol/L VBG Total CO2 (22-28) mmol/L VBG O2 Sat (Calc) (40-65) % VBG Base Excess (0.0-2.0) mmol/L VBG Potassium (3.6-5.2) mmol/L Sodium 134 (132-148) mmol/l Chloride 100 (98-107) mmol/L Glucose (65-105) mg/dl Lactate (0.7-2.1) mmol/L Potassium 3.3 L (3.6-5.2) mmol/L Carbon Dioxide 26 (22-30) mmol/L Anion Gap 11 (10-20) BUN 9 (7-17) mg/dL Creatinine 0.4 L (0.7-1.2) MG/DL Est GFR ( Amer) > 60 Est GFR (Non-Af Amer) > 60 POC Glucose (mg/dL) 111 H 104 (65-110) mg/dL Random Glucose 103 (65-105) mg/dL Calcium 8.7 (8.6-10.4) mg/dl Phosphorus 4.5 (2.5-4.5) mg/dL Magnesium 1.7 (1.6-2.3) mg/dL Total Bilirubin 0.6 (0.2-1.3) mg/dL AST 20 (14-36) U/L ALT 20 (9-52) U/L Alkaline Phosphatase 68 (38-126) U/L Total Creatine Kinase 29 L (30-135) U/L CK-MB (Mass) < 0.22 (0.0-3.38) ng/mL Troponin I < 0.0120 (0.00-0.120) ng/mL Total Protein 6.7 (6.3-8.3) g/dL Albumin 3.4 L (3.5-5.0) g/dL Globulin 3.3 (2.2-3.9) gm/dL Albumin/Globulin Ratio 1.0 (1.0-2.1) TSH 3rd Generation 1.51 (0.46-4.68) mIU/L Venous Blood Potassium (3.6-5.2) mmol/L 02/07/17 02/07/17 02/07/17 Range/Units 06:25 06:18 04:00 WBC 9.8 (4.8-10.8) K/uL RBC 3.92 (3.80-5.20) Mil/uL Hgb 11.4 (11.0-16.0) g/dL Hct 34.0 (34.0-47.0) % MCV 86.7 (81.0-99.0) fL MCH 29.1 (27.0-31.0) pg MCHC 33.5 (33.0-37.0) g/dL RDW 13.6 (11.5-14.5) % Plt Count 242 (130-400) K/uL MPV 8.5 (7.2-11.7) fL Neut % (Auto) 77.6 H (50.0-75.0) % Lymph % (Auto) 12.7 L (20.0-40.0) % Spencer % (Auto) 9.1 (0.0-10.0) % Eos % (Auto) 0.2 (0.0-4.0) % Baso % (Auto) 0.4 (0.0-2.0) % Neut # 7.6 H (1.8-7.0) K/uL Lymph # 1.2 (1.0-4.3) K/uL Spencer # 0.9 H (0.0-0.8) K/uL Eos # 0.0 (0.0-0.7) K/uL Baso # 0.0 (0.0-0.2) K/uL PT 13.1 H (9.7-12.2) SECONDS INR 1.1 APTT 23 (21-34) SECONDS pO2 (30-55) mm/Hg VBG pH (7.32-7.43) VBG pCO2 (40-60) mmHg VBG HCO3 mmol/L VBG Total CO2 (22-28) mmol/L VBG O2 Sat (Calc) (40-65) % VBG Base Excess (0.0-2.0) mmol/L VBG Potassium (3.6-5.2) mmol/L Sodium (132-148) mmol/l Chloride (98-107) mmol/L Glucose (65-105) mg/dl Lactate (0.7-2.1) mmol/L Potassium (3.6-5.2) mmol/L Carbon Dioxide (22-30) mmol/L Anion Gap (10-20) BUN (7-17) mg/dL Creatinine (0.7-1.2) MG/DL Est GFR ( Amer) Est GFR (Non-Af Amer) POC Glucose (mg/dL) 119 H (65-110) mg/dL Random Glucose (65-105) mg/dL Calcium (8.6-10.4) mg/dl Phosphorus (2.5-4.5) mg/dL Magnesium (1.6-2.3) mg/dL Total Bilirubin (0.2-1.3) mg/dL AST (14-36) U/L ALT (9-52) U/L Alkaline Phosphatase (38-126) U/L Total Creatine Kinase (30-135) U/L CK-MB (Mass) (0.0-3.38) ng/mL Troponin I (0.00-0.120) ng/mL Total Protein (6.3-8.3) g/dL Albumin (3.5-5.0) g/dL Globulin (2.2-3.9) gm/dL Albumin/Globulin Ratio (1.0-2.1) TSH 3rd Generation (0.46-4.68) mIU/L Venous Blood Potassium (3.6-5.2) mmol/L 02/07/17 02/06/17 02/06/17 Range/Units 02:06 22:04 20:19 WBC (4.8-10.8) K/uL RBC (3.80-5.20) Mil/uL Hgb (11.0-16.0) g/dL Hct (34.0-47.0) % MCV (81.0-99.0) fL MCH (27.0-31.0) pg MCHC (33.0-37.0) g/dL RDW (11.5-14.5) % Plt Count (130-400) K/uL MPV (7.2-11.7) fL Neut % (Auto) (50.0-75.0) % Lymph % (Auto) (20.0-40.0) % Spencer % (Auto) (0.0-10.0) % Eos % (Auto) (0.0-4.0) % Baso % (Auto) (0.0-2.0) % Neut # (1.8-7.0) K/uL Lymph # (1.0-4.3) K/uL Spencer # (0.0-0.8) K/uL Eos # (0.0-0.7) K/uL Baso # (0.0-0.2) K/uL PT (9.7-12.2) SECONDS INR APTT (21-34) SECONDS pO2 42 (30-55) mm/Hg VBG pH 7.41 (7.32-7.43) VBG pCO2 39 L (40-60) mmHg VBG HCO3 24.5 mmol/L VBG Total CO2 25.9 (22-28) mmol/L VBG O2 Sat (Calc) 80.8 H (40-65) % VBG Base Excess 0.1 (0.0-2.0) mmol/L VBG Potassium 3.4 L (3.6-5.2) mmol/L Sodium 137.0 (132-148) mmol/l Chloride 104.0 (98-107) mmol/L Glucose 110 H (65-105) mg/dl Lactate 1.4 (0.7-2.1) mmol/L Potassium (3.6-5.2) mmol/L Carbon Dioxide (22-30) mmol/L Anion Gap (10-20) BUN (7-17) mg/dL Creatinine (0.7-1.2) MG/DL Est GFR ( Amer) Est GFR (Non-Af Amer) POC Glucose (mg/dL) 103 104 (65-110) mg/dL Random Glucose (65-105) mg/dL Calcium (8.6-10.4) mg/dl Phosphorus (2.5-4.5) mg/dL Magnesium (1.6-2.3) mg/dL Total Bilirubin (0.2-1.3) mg/dL AST (14-36) U/L ALT (9-52) U/L Alkaline Phosphatase (38-126) U/L Total Creatine Kinase (30-135) U/L CK-MB (Mass) (0.0-3.38) ng/mL Troponin I (0.00-0.120) ng/mL Total Protein (6.3-8.3) g/dL Albumin (3.5-5.0) g/dL Globulin (2.2-3.9) gm/dL Albumin/Globulin Ratio (1.0-2.1) TSH 3rd Generation (0.46-4.68) mIU/L Venous Blood Potassium 3.4 L (3.6-5.2) mmol/L Laboratory Results - last 24 hr 02/06/17 02/06/17 02/07/17 20:19 22:04 02:06 WBC RBC Hgb Hct MCV MCH MCHC RDW Plt Count MPV Neut % (Auto) Lymph % (Auto) Spencer % (Auto) Eos % (Auto) Baso % (Auto) Neut # Lymph # Spencer # Eos # Baso # PT INR APTT pO2 42 VBG pH 7.41 VBG pCO2 39 L VBG HCO3 24.5 VBG Total CO2 25.9 VBG O2 Sat (Calc) 80.8 H VBG Base Excess 0.1 VBG Potassium 3.4 L Sodium 137.0 Chloride 104.0 Glucose 110 H Lactate 1.4 Potassium Carbon Dioxide Anion Gap BUN Creatinine Est GFR ( Amer) Est GFR (Non-Af Amer) POC Glucose (mg/dL) 104 103 Random Glucose Calcium Phosphorus Magnesium Total Bilirubin AST ALT Alkaline Phosphatase Total Creatine Kinase CK-MB (Mass) Troponin I Total Protein Albumin Globulin Albumin/Globulin Ratio TSH 3rd Generation Venous Blood Potassium 3.4 L 02/07/17 02/07/17 02/07/17 04:00 06:18 06:25 WBC 9.8 RBC 3.92 Hgb 11.4 Hct 34.0 MCV 86.7 MCH 29.1 MCHC 33.5 RDW 13.6 Plt Count 242 MPV 8.5 Neut % (Auto) 77.6 H Lymph % (Auto) 12.7 L Spencer % (Auto) 9.1 Eos % (Auto) 0.2 Baso % (Auto) 0.4 Neut # 7.6 H Lymph # 1.2 Spencer # 0.9 H Eos # 0.0 Baso # 0.0 PT 13.1 H INR 1.1 APTT 23 pO2 VBG pH VBG pCO2 VBG HCO3 VBG Total CO2 VBG O2 Sat (Calc) VBG Base Excess VBG Potassium Sodium Chloride Glucose Lactate Potassium Carbon Dioxide Anion Gap BUN Creatinine Est GFR ( Amer) Est GFR (Non-Af Amer) POC Glucose (mg/dL) 119 H Random Glucose Calcium Phosphorus Magnesium Total Bilirubin AST ALT Alkaline Phosphatase Total Creatine Kinase CK-MB (Mass) Troponin I Total Protein Albumin Globulin Albumin/Globulin Ratio TSH 3rd Generation Venous Blood Potassium 02/07/17 02/07/17 02/07/17 06:26 07:40 11:49 WBC RBC Hgb Hct MCV MCH MCHC RDW Plt Count MPV Neut % (Auto) Lymph % (Auto) Spencer % (Auto) Eos % (Auto) Baso % (Auto) Neut # Lymph # Spencer # Eos # Baso # PT INR APTT pO2 VBG pH VBG pCO2 VBG HCO3 VBG Total CO2 VBG O2 Sat (Calc) VBG Base Excess VBG Potassium Sodium 134 Chloride 100 Glucose Lactate Potassium 3.3 L Carbon Dioxide 26 Anion Gap 11 BUN 9 Creatinine 0.4 L Est GFR ( Amer) > 60 Est GFR (Non-Af Amer) > 60 POC Glucose (mg/dL) 104 111 H Random Glucose 103 Calcium 8.7 Phosphorus 4.5 Magnesium 1.7 Total Bilirubin 0.6 AST 20 ALT 20 Alkaline Phosphatase 68 Total Creatine Kinase 29 L CK-MB (Mass) < 0.22 Troponin I < 0.0120 Total Protein 6.7 Albumin 3.4 L Globulin 3.3 Albumin/Globulin Ratio 1.0 TSH 3rd Generation 1.51 Venous Blood Potassium EKG/Cardiology Studies: Cardiology / EKG Studies 02/07/17 06:00 ELECTROCARDIOGRAM DAILY Comment: Mode Of Transportation: Reason For Exam: hypertension Isolation: Contact 02/08/17 06:00 ELECTROCARDIOGRAM DAILY Comment: Mode Of Transportation: Reason For Exam: hypertension Isolation: Contact Fingerstick Blood Sugar Results: 104 Review of Systems - Review of Systems All systems: reviewed and no additional remarkable complaints except - Constitutional Constitutional: absent: Fever, Chills - EENT Eyes: absent: Blind Spots, Blurred Vision Ears: absent: Decreased Hearing, Tinnitus Nose/Mouth/Throat: absent: Nose Pain, Facial Pain, Neck Pain - Cardiovascular Cardiovascular: absent: Chest Pain, Palpitations, Syncope - Respiratory Respiratory: absent: Cough, Dyspnea, Dyspnea on Exertion - Gastrointestinal Gastrointestinal: Abdominal Pain (diffuse). absent: Constipation, Diarrhea, Vomiting - Genitourinary Genitourinary: absent: Change in Urinary Stream, Difficulty Urinating - Musculoskeletal Musculoskeletal: absent: Arthralgias, Myalgias, Stiffness, Tingling - Integumentary Integumentary: absent: Lesions, Rash, Wounds - Neurological Neurological: absent: Dizziness, Numbness, Focal Weakness, Paresthesias, Sensory Deficit, Syncope, Tingling, Tremor, Vertigo, Weakness - Psychiatric Psychiatric: absent: Suicidal Ideation - Endocrine Endocrine: absent: Cold Intolorance, Heat Intolorance Critical Care Progress Note - Extremities/Vascular Does the Patient have a Central Venous Catheter?: Yes Insertion Site: L PICC Does the Patient have a Bowman Catheter?: No Does the Patient need a Bowman Catheter?: No - Prophylaxis GI Prophylaxis GI: Pepsid - Prophylaxis DVT Prophylaxis DVT: Lovenox Assessment/Plan - Assessment and Plan (Free Text) Plan: Neuro: -lethargic; A&OX3 -Admission for seizures likely 2/2 to PRES syndrome vs 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 Garay on consult for psych) Imaging: -02/07/17 MRI Brain w/ and w/o- pending -02/06/17 CT head: Patchy white matter hypodensities in the occipital parietal regions, right greater than left. 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 Recommend MRI for further evaluation. Cardiovascular: -Acute on chronic uncontrolled HTN -Norvasc 10mg PO daily -Labetalol 400mg PO Q6 TIFFANIE -182/131 on admission; currently 133/94 -mag Sulfate 2g IV started for BP control -If BP remains uncontrolled will add verapimil, if the pressure still remains uncontrolled with start nicardipine drip -02/07/17: ECG - sinus tachy; LVH; no ST-T wave abnormalities -02/06/17: ECHO - pending final read Pulmonary: -No acute issues -Imaging: -02/06/17 CXR: No active pulmonary disease. Satisfactory position of recently placed PICC line. No pneumothorax identified. Gastrointestinal: -Surgery consulted for intra-abdominal drain complications following gastric sleeve in 2015 -Surgery recommendations (Dr. Bronson): no plans for surgical intervention ; follow-up with Dr. Clark following discharge -Imaging: -02/06/17 CT abd/pelvis: No evidence of bowel obstruction. Postoperative findings consistent with prior bariatric surgery. Absence of oral contrast precludes optimal assessment of the stomach/gastric remnant and findings associated with the stomach and small bowel. Hematology: -No acute issues -Hemodynamically stable Endocrine: -Hypokalemia- replaced with 20meq IV Renal: -No acute issues Musculoskeletal: -PT eval and Treat Genitourinary: -DC bowman, voiding well Infectious disease: -Leukocytosis resolved GI prophylaxis: Pepcid 20mg PO Q12 TIFFANIE DVT prophylaxis: Lovenox 40 mg SC daily Case discussed with Dr. Doron Fernandez PGY1 - Date & Time Date: 02/07/17 Time: 14:37 <Bryon Sal - Last Filed: 02/07/17 18:27> CCU Subjective - Physician Review Critical Care Time Spent (in minutes): 50 CCU Objective - Vital Signs / Intake & Output Vital Signs (Last 4 hours): Vital Signs Pulse Resp BP Pulse Ox 02/07/17 17:05 94 H 22 127/89 100 02/07/17 16:33 97 H 19 138/103 H 100 02/07/17 15:05 99 H 25 H 152/111 H 100 Intake and Output (Last 8hrs): Intake & Output 02/07/17 02/07/17 02/07/17 06:59 14:59 22:59 Intake Total 830 1250 550 Output Total 470 403 51 Balance 360 847 499 Intake: Intake, IV Amount 800 1200 500 Left PICC 400 200 Right Hand 800 800 300 Oral 30 50 50 Output: Drainage 0 3 1 Right Medial Abdomen 0 3 1 Urine 470 400 50 Urethral (Bowman) 470 400 50 Urine, Voided 0 - Medications Active Medications: Active Medications Generic Name Dose Route Start Last Admin Trade Name Freq PRN Reason Stop Dose Admin Acetaminophen 650 mg 02/06/17 19:58 Tylenol 325mg Tab PO Q6 PRN Headache Amlodipine Besylate 10 mg 02/06/17 20:04 02/07/17 09:28 Norvasc PO 10 mg DAILY TIFFANIE Administration Clonazepam 0.5 mg 02/06/17 20:15 02/07/17 17:39 Klonopin PO 0.5 mg BID TIFFANIE Administration Enoxaparin Sodium 40 mg 02/07/17 10:00 02/07/17 09:28 Lovenox SC 40 mg DAILY TIFFANIE Administration Famotidine 20 mg 02/06/17 22:00 02/07/17 09:28 Pepcid PO 20 mg Q12 TIFFANIE Administration Hydromorphone HCl 1 mg 02/06/17 19:58 02/07/17 15:06 Dilaudid IVP 1 mg Q6H PRN Administration Pain, severe (8-10) Sodium Chloride 1,000 mls @ 100 mls/hr 02/06/17 20:00 02/07/17 16:48 Sodium Chloride 0.9% IV 100 mls/hr .Q10H TIFFANIE Administration Levetiracetam 500 mg/ Sodium 105 mls @ 420 mls/hr 02/07/17 14:15 02/07/17 16: 48 Chloride IVPB 420 mls/hr Q12H TIFFANIE Administration Labetalol HCl 400 mg 02/07/17 00:00 02/07/17 17:39 Trandate PO 400 mg Q6 TIFFANIE Administration Lorazepam 2 mg 02/06/17 20:04 02/07/17 16:47 Ativan IVP 2 mg Q2H PRN Administration Anxiety Morphine Sulfate 4 mg 02/06/17 19:58 02/07/17 13:14 Morphine IVP 4 mg Q4H PRN Administration Pain, moderate (4-7) Ondansetron HCl 4 mg 02/06/17 19:58 Zofran Inj IVP Q6H PRN Nausea/Vomiting Oxycodone/Acetaminophen 1 tab 02/06/17 19:58 Percocet 5/325 Mg Tab PO 02/09/17 19:59 Q4H PRN Pain, Mild (1-3) Pneumococcal Polyvalent Vaccine 0.5 ml 02/08/17 10:00 Pneumovax 23 Vaccine IM 02/08/17 10:01 .ONCE ONE - Patient Studies Lab Studies: Lab Studies 02/07/17 02/07/17 02/07/17 Range/Units 11:49 07:40 06:26 WBC (4.8-10.8) K/uL RBC (3.80-5.20) Mil/uL Hgb (11.0-16.0) g/dL Hct (34.0-47.0) % MCV (81.0-99.0) fL MCH (27.0-31.0) pg MCHC (33.0-37.0) g/dL RDW (11.5-14.5) % Plt Count (130-400) K/uL MPV (7.2-11.7) fL Neut % (Auto) (50.0-75.0) % Lymph % (Auto) (20.0-40.0) % Spencer % (Auto) (0.0-10.0) % Eos % (Auto) (0.0-4.0) % Baso % (Auto) (0.0-2.0) % Neut # (1.8-7.0) K/uL Lymph # (1.0-4.3) K/uL Spencer # (0.0-0.8) K/uL Eos # (0.0-0.7) K/uL Baso # (0.0-0.2) K/uL PT (9.7-12.2) SECONDS INR APTT (21-34) SECONDS pO2 (30-55) mm/Hg VBG pH (7.32-7.43) VBG pCO2 (40-60) mmHg VBG HCO3 mmol/L VBG Total CO2 (22-28) mmol/L VBG O2 Sat (Calc) (40-65) % VBG Base Excess (0.0-2.0) mmol/L VBG Potassium (3.6-5.2) mmol/L Sodium 134 (132-148) mmol/l Chloride 100 (98-107) mmol/L Glucose (65-105) mg/dl Lactate (0.7-2.1) mmol/L Potassium 3.3 L (3.6-5.2) mmol/L Carbon Dioxide 26 (22-30) mmol/L Anion Gap 11 (10-20) BUN 9 (7-17) mg/dL Creatinine 0.4 L (0.7-1.2) MG/DL Est GFR ( Amer) > 60 Est GFR (Non-Af Amer) > 60 POC Glucose (mg/dL) 111 H 104 (65-110) mg/dL Random Glucose 103 (65-105) mg/dL Calcium 8.7 (8.6-10.4) mg/dl Phosphorus 4.5 (2.5-4.5) mg/dL Magnesium 1.7 (1.6-2.3) mg/dL Total Bilirubin 0.6 (0.2-1.3) mg/dL AST 20 (14-36) U/L ALT 20 (9-52) U/L Alkaline Phosphatase 68 (38-126) U/L Total Creatine Kinase 29 L (30-135) U/L CK-MB (Mass) < 0.22 (0.0-3.38) ng/mL Troponin I < 0.0120 (0.00-0.120) ng/mL Total Protein 6.7 (6.3-8.3) g/dL Albumin 3.4 L (3.5-5.0) g/dL Globulin 3.3 (2.2-3.9) gm/dL Albumin/Globulin Ratio 1.0 (1.0-2.1) TSH 3rd Generation 1.51 (0.46-4.68) mIU/L Venous Blood Potassium (3.6-5.2) mmol/L 02/07/17 02/07/17 02/07/17 Range/Units 06:25 06:18 04:00 WBC 9.8 (4.8-10.8) K/uL RBC 3.92 (3.80-5.20) Mil/uL Hgb 11.4 (11.0-16.0) g/dL Hct 34.0 (34.0-47.0) % MCV 86.7 (81.0-99.0) fL MCH 29.1 (27.0-31.0) pg MCHC 33.5 (33.0-37.0) g/dL RDW 13.6 (11.5-14.5) % Plt Count 242 (130-400) K/uL MPV 8.5 (7.2-11.7) fL Neut % (Auto) 77.6 H (50.0-75.0) % Lymph % (Auto) 12.7 L (20.0-40.0) % Spencer % (Auto) 9.1 (0.0-10.0) % Eos % (Auto) 0.2 (0.0-4.0) % Baso % (Auto) 0.4 (0.0-2.0) % Neut # 7.6 H (1.8-7.0) K/uL Lymph # 1.2 (1.0-4.3) K/uL Spencer # 0.9 H (0.0-0.8) K/uL Eos # 0.0 (0.0-0.7) K/uL Baso # 0.0 (0.0-0.2) K/uL PT 13.1 H (9.7-12.2) SECONDS INR 1.1 APTT 23 (21-34) SECONDS pO2 (30-55) mm/Hg VBG pH (7.32-7.43) VBG pCO2 (40-60) mmHg VBG HCO3 mmol/L VBG Total CO2 (22-28) mmol/L VBG O2 Sat (Calc) (40-65) % VBG Base Excess (0.0-2.0) mmol/L VBG Potassium (3.6-5.2) mmol/L Sodium (132-148) mmol/l Chloride (98-107) mmol/L Glucose (65-105) mg/dl Lactate (0.7-2.1) mmol/L Potassium (3.6-5.2) mmol/L Carbon Dioxide (22-30) mmol/L Anion Gap (10-20) BUN (7-17) mg/dL Creatinine (0.7-1.2) MG/DL Est GFR ( Amer) Est GFR (Non-Af Amer) POC Glucose (mg/dL) 119 H (65-110) mg/dL Random Glucose (65-105) mg/dL Calcium (8.6-10.4) mg/dl Phosphorus (2.5-4.5) mg/dL Magnesium (1.6-2.3) mg/dL Total Bilirubin (0.2-1.3) mg/dL AST (14-36) U/L ALT (9-52) U/L Alkaline Phosphatase (38-126) U/L Total Creatine Kinase (30-135) U/L CK-MB (Mass) (0.0-3.38) ng/mL Troponin I (0.00-0.120) ng/mL Total Protein (6.3-8.3) g/dL Albumin (3.5-5.0) g/dL Globulin (2.2-3.9) gm/dL Albumin/Globulin Ratio (1.0-2.1) TSH 3rd Generation (0.46-4.68) mIU/L Venous Blood Potassium (3.6-5.2) mmol/L 02/07/17 02/06/17 02/06/17 Range/Units 02:06 22:04 20:19 WBC (4.8-10.8) K/uL RBC (3.80-5.20) Mil/uL Hgb (11.0-16.0) g/dL Hct (34.0-47.0) % MCV (81.0-99.0) fL MCH (27.0-31.0) pg MCHC (33.0-37.0) g/dL RDW (11.5-14.5) % Plt Count (130-400) K/uL MPV (7.2-11.7) fL Neut % (Auto) (50.0-75.0) % Lymph % (Auto) (20.0-40.0) % Spencer % (Auto) (0.0-10.0) % Eos % (Auto) (0.0-4.0) % Baso % (Auto) (0.0-2.0) % Neut # (1.8-7.0) K/uL Lymph # (1.0-4.3) K/uL Spencer # (0.0-0.8) K/uL Eos # (0.0-0.7) K/uL Baso # (0.0-0.2) K/uL PT (9.7-12.2) SECONDS INR APTT (21-34) SECONDS pO2 42 (30-55) mm/Hg VBG pH 7.41 (7.32-7.43) VBG pCO2 39 L (40-60) mmHg VBG HCO3 24.5 mmol/L VBG Total CO2 25.9 (22-28) mmol/L VBG O2 Sat (Calc) 80.8 H (40-65) % VBG Base Excess 0.1 (0.0-2.0) mmol/L VBG Potassium 3.4 L (3.6-5.2) mmol/L Sodium 137.0 (132-148) mmol/l Chloride 104.0 (98-107) mmol/L Glucose 110 H (65-105) mg/dl Lactate 1.4 (0.7-2.1) mmol/L Potassium (3.6-5.2) mmol/L Carbon Dioxide (22-30) mmol/L Anion Gap (10-20) BUN (7-17) mg/dL Creatinine (0.7-1.2) MG/DL Est GFR ( Amer) Est GFR (Non-Af Amer) POC Glucose (mg/dL) 103 104 (65-110) mg/dL Random Glucose (65-105) mg/dL Calcium (8.6-10.4) mg/dl Phosphorus (2.5-4.5) mg/dL Magnesium (1.6-2.3) mg/dL Total Bilirubin (0.2-1.3) mg/dL AST (14-36) U/L ALT (9-52) U/L Alkaline Phosphatase (38-126) U/L Total Creatine Kinase (30-135) U/L CK-MB (Mass) (0.0-3.38) ng/mL Troponin I (0.00-0.120) ng/mL Total Protein (6.3-8.3) g/dL Albumin (3.5-5.0) g/dL Globulin (2.2-3.9) gm/dL Albumin/Globulin Ratio (1.0-2.1) TSH 3rd Generation (0.46-4.68) mIU/L Venous Blood Potassium 3.4 L (3.6-5.2) mmol/L Laboratory Results - last 24 hr 02/06/17 02/06/17 02/07/17 20:19 22:04 02:06 WBC RBC Hgb Hct MCV MCH MCHC RDW Plt Count MPV Neut % (Auto) Lymph % (Auto) Spencer % (Auto) Eos % (Auto) Baso % (Auto) Neut # Lymph # Spencer # Eos # Baso # PT INR APTT pO2 42 VBG pH 7.41 VBG pCO2 39 L VBG HCO3 24.5 VBG Total CO2 25.9 VBG O2 Sat (Calc) 80.8 H VBG Base Excess 0.1 VBG Potassium 3.4 L Sodium 137.0 Chloride 104.0 Glucose 110 H Lactate 1.4 Potassium Carbon Dioxide Anion Gap BUN Creatinine Est GFR ( Amer) Est GFR (Non-Af Amer) POC Glucose (mg/dL) 104 103 Random Glucose Calcium Phosphorus Magnesium Total Bilirubin AST ALT Alkaline Phosphatase Total Creatine Kinase CK-MB (Mass) Troponin I Total Protein Albumin Globulin Albumin/Globulin Ratio [facility] 3rd Generation Venous Blood Potassium 3.4 L 02/07/17 02/07/17 02/07/17 04:00 06:18 06:25 WBC 9.8 RBC 3.92 Hgb 11.4 Hct 34.0 MCV 86.7 MCH 29.1 MCHC 33.5 RDW 13.6 Plt Count 242 MPV 8.5 Neut % (Auto) 77.6 H Lymph % (Auto) 12.7 L Spencer % (Auto) 9.1 Eos % (Auto) 0.2 Baso % (Auto) 0.4 Neut # 7.6 H Lymph # 1.2 Spencer # 0.9 H Eos # 0.0 Baso # 0.0 PT 13.1 H INR 1.1 APTT 23 pO2 VBG pH VBG pCO2 VBG HCO3 VBG Total CO2 VBG O2 Sat (Calc) VBG Base Excess VBG Potassium Sodium Chloride Glucose Lactate Potassium Carbon Dioxide Anion Gap BUN Creatinine Est GFR ( Amer) Est GFR (Non-Af Amer) POC Glucose (mg/dL) 119 H Random Glucose Calcium Phosphorus Magnesium Total Bilirubin AST ALT Alkaline Phosphatase Total Creatine Kinase CK-MB (Mass) Troponin I Total Protein Albumin Globulin Albumin/Globulin Ratio [facility] 3rd Generation Venous Blood Potassium 02/07/17 02/07/17 02/07/17 06:26 07:40 11:49 WBC RBC Hgb Hct MCV MCH MCHC RDW Plt Count MPV Neut % (Auto) Lymph % (Auto) [place] % (Auto) Eos % (Auto) Baso % (Auto) Neut # Lymph # [place] # Eos # Baso # PT INR APTT pO2 VBG pH VBG pCO2 VBG HCO3 VBG Total CO2 VBG O2 Sat (Calc) VBG Base Excess VBG Potassium Sodium 134 Chloride 100 Glucose Lactate Potassium 3.3 L Carbon Dioxide 26 Anion Gap 11 BUN 9 Creatinine 0.4 L Est GFR ( Amer) > 60 Est GFR (Non-Af Amer) > 60 POC Glucose (mg/dL) 104 111 H Random Glucose 103 Calcium 8.7 Phosphorus 4.5 Magnesium 1.7 Total Bilirubin 0.6 AST 20 ALT 20 Alkaline Phosphatase 68 Total Creatine Kinase 29 L CK-MB (Mass) < 0.22 Troponin I < 0.0120 Total Protein 6.7 Albumin 3.4 L Globulin 3.3 Albumin/Globulin Ratio 1.0 TSH 3rd Generation 1.51 Venous Blood Potassium EKG/Cardiology Studies: Cardiology / EKG Studies 02/07/17 06:00 ELECTROCARDIOGRAM DAILY Comment: Mode Of Transportation: Reason For Exam: hypertension Isolation: Contact 02/08/17 06:00 ELECTROCARDIOGRAM DAILY Comment: Mode Of Transportation: Reason For Exam: hypertension Isolation: Contact Attending/Attestation - Attestation I have personally seen and examined this patient.: Yes I have fully participated in the care of the patient.: Yes I have reviewed all pertinent clinical information: Yes Notes (Text): 02/07/17 17:26 Patient seen and examined in the intensive care unit. Case discussed with house staff in the morning rounds. Patient admitted last night for seizure activity Begin treatment for PRES syndrome MRI done awaiting for official report Continue treatment as per neurology Controlled hypertension Seen by surgery
--- NOTE | 2017-02-07 14:37 | CP.PCM.CON ---
History of Present Illness - History of Present Illness History of Present Illness: Ms. Dominguez is a 26-year-old woman with a past medical history of gastric bypass surgery that was done in August 2016, with resultant complications requiring several revisions and significant discomfort and pain leading to heavy use of opiates and benzos. She stopped using these medications after her last visit with her surgeon, which was a week ago. Yesterday, she had two episodes of loss of consciousness accompanied by generalized convulsions. She was brought to the ED, where her initial BP was 182/[address] of the head was done and showed evidence of PRES. On initial exam, the patient was encephalopathic. Today, she is much improved after receiving several doses of IV antihypertensives and being started on oral Norvasc and Labetalol. Review of Systems - Review of Systems All systems: reviewed and no additional remarkable complaints except Past Patient History - Past Medical History & Family History Past Medical History?: Yes - Past Social History Smoking Status: Never Smoked - CARDIAC Hx Hypertension: Yes - PULMONARY Hx Respiratory Disorders: No - NEUROLOGICAL Hx Neurological Disorder: No - HEENT Hx HEENT Problems: No - RENAL Hx Chronic Kidney Disease: No - ENDOCRINE/METABOLIC Hx Endocrine Disorders: No - HEMATOLOGICAL/ONCOLOGICAL Hx Blood Disorders: No - INTEGUMENTARY Hx Dermatological Problems: No - MUSCULOSKELETAL/RHEUMATOLOGICAL Hx Musculoskeletal Disorders: No Hx Falls: No - GASTROINTESTINAL Hx Gastrointestinal Disorders: No - GENITOURINARY/GYNECOLOGICAL Hx Genitourinary Disorders: No - PSYCHIATRIC Hx Substance Use: No - SURGICAL HISTORY Other/Comment: GASTRIC SLEEVE 08/25/2016. BARIATRIC SX 01/2017 - ANESTHESIA Hx Anesthesia: Yes Meds Allergies/Adverse Reactions: Allergies Allergy/AdvReac Type Severity Reaction Status Date / Time No Known Allergies Allergy Verified 09/08/16 12:07 - Medications Medications: Current Medications Acetaminophen (Tylenol 325mg Tab) 650 mg PO Q6 PRN PRN Reason: Headache Amlodipine Besylate (Norvasc) 10 mg PO DAILY [facility] Last Admin: 02/07/17 09:28 Dose: 10 mg Clonazepam (Klonopin) 0.5 mg PO BID [facility] Last Admin: 02/07/17 09:28 Dose: 0.5 mg Enoxaparin Sodium (Lovenox) 40 mg SC DAILY [facility] Last Admin: 02/07/17 09:28 Dose: 40 mg Famotidine (Pepcid) 20 mg PO Q12 [facility] Last Admin: 02/07/17 09:28 Dose: 20 mg Hydromorphone HCl (Dilaudid) 1 mg IVP Q6H PRN PRN Reason: Pain, severe (8-10) Last Admin: 02/07/17 09:38 Dose: 1 mg Sodium Chloride (Sodium Chloride 0.9%) 1,000 mls @ 100 mls/hr IV .Q10H [facility] Last Admin: 02/07/17 06:35 Dose: Not Given Levetiracetam 500 mg/ Sodium (Chloride) 105 mls @ 420 mls/hr IVPB Q12H [facility] Magnesium Sulfate/Dextrose (Magnesium Sulfate 1 Gm/100 Ml D5w) 1 gm in 100 mls @ 200 mls/hr IVPB Q30M [facility] Stop: 02/07/17 15:14 Labetalol HCl (Trandate) 400 mg PO Q6 [facility] Last Admin: 02/07/17 13:13 Dose: 400 mg Lorazepam (Ativan) 2 mg IVP Q2H PRN PRN Reason: Anxiety Morphine Sulfate (Morphine) 4 mg IVP Q4H PRN PRN Reason: Pain, moderate (4-7) Last Admin: 02/07/17 13:14 Dose: 4 mg Ondansetron HCl (Zofran Inj) 4 mg IVP Q6H PRN PRN Reason: Nausea/Vomiting Oxycodone/Acetaminophen (Percocet 5/325 Mg Tab) 1 tab PO Q4H PRN PRN Reason: Pain, Mild (1-3) Stop: 02/09/17 19:59 Pneumococcal Polyvalent Vaccine (Pneumovax 23 Vaccine) 0.5 ml IM .ONCE ONE Stop: 02/08/17 10:01 Physical Exam - Constitutional Appears: Well - Head Exam Head Exam: ATRAUMATIC, NORMAL INSPECTION, NORMOCEPHALIC - Eye Exam Eye Exam: EOMI, Normal appearance, PERRL - ENT Exam ENT Exam: Mucous Membranes Moist, Normal Exam - Neck Exam Neck exam: Positive for: Normal Inspection - Respiratory Exam Respiratory Exam: Clear to Auscultation Bilateral, NORMAL BREATHING PATTERN - Cardiovascular Exam Cardiovascular Exam: REGULAR RHYTHM - GI/Abdominal Exam GI & Abdominal Exam: Normal Bowel Sounds, Soft. absent: Tenderness - Rectal Exam Rectal Exam: Deferred - Extremities Exam Extremities exam: Positive for: normal inspection - Back Exam Back exam: NORMAL INSPECTION - Neurological Exam Neurological exam: Alert, CN II-XII Intact, Normal Gait, Oriented x3, Reflexes Normal Additional comments: Normal vision on confrontation. Full strength, normal reflexes, downgoing plantar response, Romberg was normal. - Psychiatric Exam Psychiatric exam: Normal Affect, Normal Mood - Skin Skin Exam: Dry, Intact, Normal Color, Warm Results - Vital Signs Recent Vital Signs: Last Vital Signs Temp 99.4 F 02/07/17 00:00 Pulse 106 H 02/07/17 07:05 Resp 21 02/07/17 07:05 BP 133/94 H 02/07/17 07:05 Pulse Ox 100 02/07/17 07:05 - Labs Result Diagrams: 02/07/17 06:25 02/07/17 06:26 Labs: Laboratory Results - last 24 hr 02/06/17 02/06/17 02/07/17 20:19 22:04 02:06 WBC RBC Hgb Hct MCV MCH MCHC RDW Plt Count MPV Neut % (Auto) Lymph % (Auto) [place] % (Auto) Eos % (Auto) Baso % (Auto) Neut # Lymph # [place] # Eos # Baso # PT INR APTT pO2 42 VBG pH 7.41 VBG pCO2 39 L VBG HCO3 24.5 VBG Total CO2 25.9 VBG O2 Sat (Calc) 80.8 H VBG Base Excess 0.1 VBG Potassium 3.4 L Sodium 137.0 Chloride 104.0 Glucose 110 H Lactate 1.4 Potassium Carbon Dioxide Anion Gap BUN Creatinine Est GFR ( Amer) Est GFR (Non-Af Amer) POC Glucose (mg/dL) 104 103 Random Glucose Calcium Phosphorus Magnesium Total Bilirubin AST ALT Alkaline Phosphatase Total Creatine Kinase CK-MB (Mass) Troponin I Total Protein Albumin Globulin Albumin/Globulin Ratio TSH 3rd Generation Venous Blood Potassium 3.4 L 02/07/17 02/07/17 02/07/17 04:00 06:18 06:25 WBC 9.8 RBC 3.92 Hgb 11.4 Hct 34.0 MCV 86.7 MCH 29.1 MCHC 33.5 RDW 13.6 Plt Count 242 MPV 8.5 Neut % (Auto) 77.6 H Lymph % (Auto) 12.7 L [place] % (Auto) 9.1 Eos % (Auto) 0.2 Baso % (Auto) 0.4 Neut # 7.6 H Lymph # 1.2 [place] # 0.9 H Eos # 0.0 Baso # 0.0 PT 13.1 H INR 1.1 APTT 23 pO2 VBG pH VBG pCO2 VBG HCO3 VBG Total CO2 VBG O2 Sat (Calc) VBG Base Excess VBG Potassium Sodium Chloride Glucose Lactate Potassium Carbon Dioxide Anion Gap BUN Creatinine Est GFR ( Amer) Est GFR (Non-Af Amer) POC Glucose (mg/dL) 119 H Random Glucose Calcium Phosphorus Magnesium Total Bilirubin AST ALT Alkaline Phosphatase Total Creatine Kinase CK-MB (Mass) Troponin I Total Protein Albumin Globulin Albumin/Globulin Ratio TSH 3rd Generation Venous Blood Potassium 02/07/17 02/07/17 02/07/17 06:26 07:40 11:49 WBC RBC Hgb Hct MCV MCH MCHC RDW Plt Count MPV Neut % (Auto) Lymph % (Auto) [place] % (Auto) Eos % (Auto) Baso % (Auto) Neut # Lymph # [place] # Eos # Baso # PT INR APTT pO2 VBG pH VBG pCO2 VBG HCO3 VBG Total CO2 VBG O2 Sat (Calc) VBG Base Excess VBG Potassium Sodium 134 Chloride 100 Glucose Lactate Potassium 3.3 L Carbon Dioxide 26 Anion Gap 11 BUN 9 Creatinine 0.4 L Est GFR ( Amer) > 60 Est GFR (Non-Af Amer) > 60 POC Glucose (mg/dL) 104 111 H Random Glucose 103 Calcium 8.7 Phosphorus 4.5 Magnesium 1.7 Total Bilirubin 0.6 AST 20 ALT 20 Alkaline Phosphatase 68 Total Creatine Kinase 29 L CK-MB (Mass) < 0.22 Troponin I < 0.0120 Total Protein 6.7 Albumin 3.4 L Globulin 3.3 Albumin/Globulin Ratio 1.0 TSH 3rd Generation 1.51 Venous Blood Potassium - Imaging and Cardiology CT scan - head Status: Image reviewed by me, Report reviewed by me (Hypodensity bilaterally in the high occipital regions.) Assessment & Plan (1) PRES (posterior reversible encephalopathy syndrome) Assessment and Plan: Likely due to hypertension, which may be from withdrawal. Will give 2 grams of Magnesium Sulfate IV. Continue BP control. Obtain MRI of the brain with and without contrast. If BP is not controlled, consider verapamil. Start Keppra 500 mg BID until resolution of hypodensity. Status: Acute Priority: High
[2017-02-07] MEDS ORDERED: Gadodiamide 287 MG/ML VIAL (15ML) IV ONE (16:07)
[2017-02-07] MEDS: levETIRAcetam 500 MG in Sodium Chloride 0.9% 100 ML IVPB SCH (16:48)
[2017-02-07] MEDS: Magnesium Sulfate 1 gm in D5W 1 GM/100 ML BAG IVPB SCH ×4 (16:52→17:40)
--- NOTE | 2017-02-07 17:47 | MRI ---
PROCEDURE: MRI BRAIN WITH AND WITHOUT CONTRAST HISTORY: seizures COMPARISON: Comparison made with prior CT scan brain 02/06/2017. TECHNIQUE: Multiplanar, multisequence MR images of the brain were obtained before and following intravenous injection of approximately 14 cc of Omniscan contrast material. FINDINGS: HEMORRHAGE: The current study reveals no definitive no evidence of acute parenchymal, subarachnoid or extra-axial hemorrhage. No hemosiderin deposition is identified on gradient echo weighted sequence. DWI: No evidence of an acute or early subacute infarction. BRAIN PARENCHYMA: Seen to better advantage are patchy curvilinear nonenhancing areas of prolonged T2 signal predominately located within the subcortical white matter of the posterior frontoparietal lobes extending into the occipito parietal watershed zones. These changes may represent sequela of posterior reversible encephalopathy syndrome (PRES syndrome). Note however that there is also small focal area of restricted diffusion seen in the right posterior superior parietal lobe at the vertex which does not exhibit corresponding dark T2 on ADC map. This could represent a small area of reversible ischemia. ENHANCEMENT: No definitive evidence of contrast enhancement. VENTRICLES: Ventricular and sulcal size within range of normal for this patient's stated age. CRANIUM: Calvarium appears grossly unremarkable. ORBITS: Orbits and contents unremarkable. PARANASAL SINUSES/MASTOIDS: Small focal area polypoid like mucosal thickening and a mucous retention cyst right maxillary sinus. VASCULAR SYSTEM: Visualized major vascular flow voids at skull base are patent. OTHER FINDINGS: None . IMPRESSION: Re- demonstrated to better advantage are patchy prolonged T2 signal changes seen within the subcortical white matter of the posterior frontal, parietal and occipital parietal watershed zones. Findings most likely represent sequela of posterior reversible encephalopathy syndrome (PRE gas). There is also a small focal area of restricted diffusion involving the right posterior superior parietal cortex that may represent which does not exhibit dark T2 signal on ADC map. This could represent a small area of reversible ischemia. Followup MRI at interval recommended to assess for resolution. Findings discussed with ICU physician Dr. Sal at approximately 5:20 p.m. with written down and read back verification.
[2017-02-07] MEDS: Mag&Al/Simet/Diphen/Lido 237 ML KIT PO PRN (22:04)
[2017-02-08] MEDS: Morphine 4 MG/ML VIAL IVP PRN ×4 (01:02→20:45)
[2017-02-08] MEDS: Sodium Chloride 0.9% 1,000 ML IV SCH ×3 (02:29→22:48)
[2017-02-08] MEDS: levETIRAcetam 500 MG in Sodium Chloride 0.9% 100 ML IVPB SCH ×2 (02:30→13:55)
[2017-02-08] MEDS: HYDROmorphone 1 mg/ml ISec IVP PRN ×4 (04:24→23:58)
[2017-02-08] MEDS: Mag&Al/Simet/Diphen/Lido 237 ML KIT PO PRN ×3 (04:26→17:49)
[2017-02-08 06:30] LABS: BASO % 0.3 % (0.0-2.0); EOS # 0.2 K/uL (0.0-0.7); EOS % 2.3 % (0.0-4.0); HEMATOCRIT 29.4 % (34.0-47.0); LYMPH % 13.2 % (20.0-40.0); MEAN CELL VOLUME 87.3 fL (81.0-99.0); MEAN CORPUSCULAR HEMOGLOBIN 29.6 pg (27.0-31.0); MEAN CORPUSCULAR HGB CONC 33.9 g/dL (33.0-37.0); MEAN PLATELET VOLUME 8.6 fL (7.2-11.7); MONO # 0.7 K/uL (0.0-0.8); MONO % 9.4 % (0.0-10.0); NRBC % 0.1 % (0.0-2.0); RED CELL DISTRIBUTION WIDTH 13.8 % (11.5-14.5); WHITE BLOOD COUNT 7.8 K/uL (4.8-10.8)
[2017-02-08 06:42] LABS: CHLORIDE 101 mmol/L (98-107); SODIUM 133 mmol/L (132-148)
[2017-02-08 06:43] LABS: POTASSIUM 3.4 mmol/L (3.6-5.2)
[2017-02-08 06:44] LABS: GFR AFRICAN-AMERICAN > 60
[2017-02-08 06:45] LABS: ALB/GLOB RATIO 0.9 (1.0-2.1); ALKALINE PHOSPHATASE 56 U/L (38-126); ALT/SGPT 17 U/L (9-52); AST/SGOT 14 U/L (14-36); BILIRUBIN,TOTAL 0.6 mg/dL (0.2-1.3); BLOOD UREA NITROGEN 6 mg/dL (7-17); CARBON DIOXIDE 26 mmol/L (22-30); GLUCOSE,RANDOM 80 mg/dL (65-105)
[2017-02-08 06:46] LABS: CALCIUM 8.4 mg/dl (8.6-10.4); MAGNESIUM 1.9 mg/dL (1.6-2.3); PHOSPHOROUS 3.6 mg/dL (2.5-4.5)
[2017-02-08 06:57] LABS: INR 1.1
[2017-02-08] MEDS ORDERED: Magnesium Sulfate 1 gm in D5W 1 GM/100 ML BAG IVPB ONE (07:30)
[2017-02-08] MEDS: Enoxaparin 40 mg Syringe SC SCH (09:32)
[2017-02-08] MEDS ORDERED: Pneumococcal 23-Valent Vaccine IM ONE (10:00)
--- NOTE | 2017-02-08 10:55 | CP.CCUPN ---
CCU Subjective - Physician Review Subjective (Free Text): 02/07/17 14:29 Patient seen and examined at bedside. No acute events overnight. No acute distress. Nursing staff reports no issues. Patient denies fever, chills, N/V/D/C , chest pain, SOB, cough, abdominal pain, and numbness or tingling. Today, patient remains hypertensive. Per Dr. Ponce's request, mag sulfate 2g was given for BP control. The patient is pending MRI Brain w/ and w/o contrast. The patient was seen by the surgical team as well following rounds. Dr. Garay was also consulted to see the patient. The patient was started on Keppra 500mg IV BID. Prior to rounds, the patient's potassium was replaced. CCU Objective - Vital Signs / Intake & Output Vital Signs (Last 4 hours): Vital Signs Pulse Resp BP Pulse Ox 02/08/17 10:00 104 H 24 98 02/08/17 09:05 104 H 25 H 127/84 99 02/08/17 09:00 103 H 20 100 02/08/17 08:05 100 H 24 132/89 100 02/08/17 08:00 105 H 12 100 02/08/17 07:05 94 H 16 110/70 100 02/08/17 07:00 91 H 18 100 Intake and Output (Last 8hrs): Intake & Output 02/07/17 02/08/17 02/08/17 22:59 06:59 14:59 Intake Total 1150 1400 550 Output Total 451 805 301 Balance 699 595 249 Weight 77.649 kg Intake: Intake, IV Amount 1000 900 500 Left PICC 200 100 Right Hand 800 900 400 Oral 150 500 50 Output: Drainage 1 5 1 Right Medial Abdomen 1 5 1 Urine 450 800 300 Urethral (M[place]oz) 50 Urine, Voided 400 800 300 Other: # Voids Urine, Voided 1 # Bowel Movements 0 - Physical Exam Head: Positive for: Atraumatic, Normocephalic Pupils: Positive for: PERRL Extroacular Muscles: Positive for: EOMI Conjunctiva: Positive for: Normal. Negative for: Injected Mouth: Positive for: Moist Mucous Membranes. Negative for: Drooling Nose (External): Positive for: Atraumatic Neck: Positive for: Normal Range of Motion. Negative for: JVD, Lymphadenopathy Respiratory/Chest: Positive for: Clear to Auscultation, Good Air Exchange. Negative for: Respiratory Distress, Accessory Muscle Use, Wheezes, Rales, Rhonchi Cardiovascular: Positive for: Regular Rate and Rhythm, Normal S1, S2, Peripheal Pulses Present. Negative for: Murmurs Abdomen: Positive for: Tenderness (diffuse), Normal Bowel Sounds, Scars. Negative for: Distention, Peritoneal Signs, Rebound, Guarding Back: Positive for: Normal Inspection. Negative for: CVA Tenderness Upper Extremity: Positive for: Normal Inspection, Normal ROM, NORMAL PULSES, Neurovascularly Intact, Capillary Refill < 2s. Negative for: Cyanosis, Edema Lower Extremity: Positive for: Normal Inspection, NORMAL PULSES, Normal ROM, Neurovascularly Intact, Capillary Refill < 2 s. Negative for: Edema, CALF TENDERNESS, Tenderness Neurological: Positive for: CN II-XII Intact, Speech Normal Skin: Positive for: Warm, Dry, Normal Color. Negative for: Rashes Psychiatric: Positive for: Alert, Oriented x 3. Negative for: Normal Affect - Medications Active Medications: Active Medications Generic Name Dose Route Start Last Admin Trade Name Freq PRN Reason Stop Dose Admin Acetaminophen 650 mg 02/06/17 19:58 Tylenol 325mg Tab PO Q6 PRN Headache Amlodipine Besylate 10 mg 02/06/17 20:04 02/08/17 09:31 Norvasc PO 10 mg DAILY TIFFANIE Administration Clonazepam 0.5 mg 02/06/17 20:15 02/08/17 09:31 Klonopin PO 0.5 mg BID TIFFANIE Administration Enoxaparin Sodium 40 mg 02/07/17 10:00 02/08/17 09:32 Lovenox SC 40 mg DAILY TIFFANIE Administration Famotidine 20 mg 02/06/17 22:00 02/08/17 09:31 Pepcid PO 20 mg Q12 TIFFANIE Administration Hydromorphone HCl 1 mg 02/06/17 19:58 02/08/17 10:40 Dilaudid IVP 1 mg Q6H PRN Administration Pain, severe (8-10) Sodium Chloride 1,000 mls @ 100 mls/hr 02/06/17 20:00 02/08/17 02:29 Sodium Chloride 0.9% IV 100 mls/hr .Q10H TIFFANIE Administration Levetiracetam 500 mg/ Sodium 105 mls @ 420 mls/hr 02/07/17 14:15 02/08/17 02: 30 Chloride IVPB 420 mls/hr Q12H TIFFANIE Administration Labetalol HCl 400 mg 02/08/17 09:30 02/08/17 09:54 Trandate PO Not Given Q6 TIFFANIE Lorazepam 2 mg 02/06/17 20:04 02/07/17 16:47 Ativan IVP 2 mg Q2H PRN Administration Anxiety Morphine Sulfate 4 mg 02/06/17 19:58 02/08/17 07:44 Morphine IVP 4 mg Q4H PRN Administration Pain, moderate (4-7) Ondansetron HCl 4 mg 02/06/17 19:58 Zofran Inj IVP Q6H PRN Nausea/Vomiting Oxycodone/Acetaminophen 1 tab 02/06/17 19:58 Percocet 5/325 Mg Tab PO 02/09/17 19:59 Q4H PRN Pain, Mild (1-3) Saliva Substitute 10 ml 02/07/17 18:50 02/08/17 04:26 First Magic Mouthwash PO 10 ml Q4 PRN Administration Pain, moderate (4-7) - Patient Studies Lab Studies: Microbiology Studies 02/06/17 20:00 Blood Culture - Preliminary Blood NO GROWTH AFTER 24 HOURS 02/06/17 20:00 Blood Culture - Preliminary Blood NO GROWTH AFTER 24 HOURS Lab Studies 02/08/17 02/08/17 02/08/17 Range/Units 07:34 06:23 06:23 WBC (4.8-10.8) K/uL RBC (3.80-5.20) Mil/uL Hgb (11.0-16.0) g/dL Hct (34.0-47.0) % MCV (81.0-99.0) fL MCH (27.0-31.0) pg MCHC (33.0-37.0) g/dL RDW (11.5-14.5) % Plt Count (130-400) K/uL MPV (7.2-11.7) fL Neut % (Auto) (50.0-75.0) % Lymph % (Auto) (20.0-40.0) % [place] % (Auto) (0.0-10.0) % Eos % (Auto) (0.0-4.0) % Baso % (Auto) (0.0-2.0) % Neut # (1.8-7.0) K/uL Lymph # (1.0-4.3) K/uL [place] # (0.0-0.8) K/uL Eos # (0.0-0.7) K/uL Baso # (0.0-0.2) K/uL PT 12.7 H (9.7-12.2) SECONDS INR 1.1 APTT 30 D (21-34) SECONDS Sodium 133 (132-148) mmol/L Potassium 3.4 L (3.6-5.2) mmol/L Chloride 101 (98-107) mmol/L Carbon Dioxide 26 (22-30) mmol/L Anion Gap 9 L (10-20) BUN 6 L (7-17) mg/dL Creatinine 0.4 L (0.7-1.2) MG/DL Est GFR ( Amer) > 60 Est GFR (Non-Af Amer) > 60 POC Glucose (mg/dL) 92 (65-110) mg/dL Random Glucose 80 (65-105) mg/dL Calcium 8.4 L (8.6-10.4) mg/dl Phosphorus 3.6 (2.5-4.5) mg/dL Magnesium 1.9 (1.6-2.3) mg/dL Total Bilirubin 0.6 (0.2-1.3) mg/dL AST 14 D (14-36) U/L ALT 17 (9-52) U/L Alkaline Phosphatase 56 (38-126) U/L Total Protein 6.0 L (6.3-8.3) g/dL Albumin 2.9 L (3.5-5.0) g/dL Globulin 3.1 (2.2-3.9) gm/dL Albumin/Globulin Ratio 0.9 L (1.0-2.1) 02/08/17 02/07/17 02/07/17 Range/Units 06:23 21:33 18:21 WBC 7.8 (4.8-10.8) K/uL RBC 3.37 L (3.80-5.20) Mil/uL Hgb 10.0 L (11.0-16.0) g/dL Hct 29.4 L (34.0-47.0) % MCV 87.3 (81.0-99.0) fL MCH 29.6 (27.0-31.0) pg MCHC 33.9 (33.0-37.0) g/dL RDW 13.8 (11.5-14.5) % Plt Count 214 (130-400) K/uL MPV 8.6 (7.2-11.7) fL Neut % (Auto) 74.8 (50.0-75.0) % Lymph % (Auto) 13.2 L (20.0-40.0) % [place] % (Auto) 9.4 (0.0-10.0) % Eos % (Auto) 2.3 (0.0-4.0) % Baso % (Auto) 0.3 (0.0-2.0) % Neut # 5.8 (1.8-7.0) K/uL Lymph # 1.0 (1.0-4.3) K/uL [place] # 0.7 (0.0-0.8) K/uL Eos # 0.2 (0.0-0.7) K/uL Baso # 0.0 (0.0-0.2) K/uL PT (9.7-12.2) SECONDS INR APTT (21-34) SECONDS Sodium (132-148) mmol/L Potassium (3.6-5.2) mmol/L Chloride (98-107) mmol/L Carbon Dioxide (22-30) mmol/L Anion Gap (10-20) BUN (7-17) mg/dL Creatinine (0.7-1.2) MG/DL Est GFR ( Amer) Est GFR (Non-Af Amer) POC Glucose (mg/dL) 92 113 H (65-110) mg/dL Random Glucose (65-105) mg/dL Calcium (8.6-10.4) mg/dl Phosphorus (2.5-4.5) mg/dL Magnesium (1.6-2.3) mg/dL Total Bilirubin (0.2-1.3) mg/dL AST (14-36) U/L ALT (9-52) U/L Alkaline Phosphatase (38-126) U/L Total Protein (6.3-8.3) g/dL Albumin (3.5-5.0) g/dL Globulin (2.2-3.9) gm/dL Albumin/Globulin Ratio (1.0-2.1) 02/07/17 Range/Units 11:49 WBC (4.8-10.8) K/uL RBC (3.80-5.20) Mil/uL Hgb (11.0-16.0) g/dL Hct (34.0-47.0) % MCV (81.0-99.0) fL MCH (27.0-31.0) pg MCHC (33.0-37.0) g/dL RDW (11.5-14.5) % Plt Count (130-400) K/uL MPV (7.2-11.7) fL Neut % (Auto) (50.0-75.0) % Lymph % (Auto) (20.0-40.0) % [place] % (Auto) (0.0-10.0) % Eos % (Auto) (0.0-4.0) % Baso % (Auto) (0.0-2.0) % Neut # (1.8-7.0) K/uL Lymph # (1.0-4.3) K/uL [place] # (0.0-0.8) K/uL Eos # (0.0-0.7) K/uL Baso # (0.0-0.2) K/uL PT (9.7-12.2) SECONDS INR APTT (21-34) SECONDS Sodium (132-148) mmol/L Potassium (3.6-5.2) mmol/L Chloride (98-107) mmol/L Carbon Dioxide (22-30) mmol/L Anion Gap (10-20) BUN (7-17) mg/dL Creatinine (0.7-1.2) MG/DL Est GFR ( Amer) Est GFR (Non-Af Amer) POC Glucose (mg/dL) 111 H (65-110) mg/dL Random Glucose (65-105) mg/dL Calcium (8.6-10.4) mg/dl Phosphorus (2.5-4.5) mg/dL Magnesium (1.6-2.3) mg/dL Total Bilirubin (0.2-1.3) mg/dL AST (14-36) U/L ALT (9-52) U/L Alkaline Phosphatase (38-126) U/L Total Protein (6.3-8.3) g/dL Albumin (3.5-5.0) g/dL Globulin (2.2-3.9) gm/dL Albumin/Globulin Ratio (1.0-2.1) Laboratory Results - last 24 hr 02/07/17 02/07/17 02/07/17 11:49 18:21 21:33 WBC RBC Hgb Hct MCV MCH MCHC RDW Plt Count MPV Neut % (Auto) Lymph % (Auto) [place] % (Auto) Eos % (Auto) Baso % (Auto) Neut # Lymph # [place] # Eos # Baso # PT INR APTT Sodium Potassium Chloride Carbon Dioxide Anion Gap BUN Creatinine Est GFR ( Amer) Est GFR (Non-Af Amer) POC Glucose (mg/dL) 111 H 113 H 92 Random Glucose Calcium Phosphorus Magnesium Total Bilirubin AST ALT Alkaline Phosphatase Total Protein Albumin Globulin Albumin/Globulin Ratio 02/08/17 02/08/17 02/08/17 06:23 06:23 06:23 WBC 7.8 RBC 3.37 L Hgb 10.0 L Hct 29.4 L MCV 87.3 MCH 29.6 MCHC 33.9 RDW 13.8 Plt Count 214 MPV 8.6 Neut % (Auto) 74.8 Lymph % (Auto) 13.2 L [place] % (Auto) 9.4 Eos % (Auto) 2.3 Baso % (Auto) 0.3 Neut # 5.8 Lymph # 1.0 [place] # 0.7 Eos # 0.2 Baso # 0.0 PT 12.7 H INR 1.1 APTT 30 D Sodium 133 Potassium 3.4 L Chloride 101 Carbon Dioxide 26 Anion Gap 9 L BUN 6 L Creatinine 0.4 L Est GFR ( Amer) > 60 Est GFR (Non-Af Amer) > 60 POC Glucose (mg/dL) Random Glucose 80 Calcium 8.4 L Phosphorus 3.6 Magnesium 1.9 Total Bilirubin 0.6 AST 14 D ALT 17 Alkaline Phosphatase 56 Total Protein 6.0 L Albumin 2.9 L Globulin 3.1 Albumin/Globulin Ratio 0.9 L 02/08/17 07:34 WBC RBC Hgb Hct MCV MCH MCHC RDW Plt Count MPV Neut % (Auto) Lymph % (Auto) [place] % (Auto) Eos % (Auto) Baso % (Auto) Neut # Lymph # [place] # Eos # Baso # PT INR APTT Sodium Potassium Chloride Carbon Dioxide Anion Gap BUN Creatinine Est GFR ( Amer) Est GFR (Non-Af Amer) POC Glucose (mg/dL) 92 Random Glucose Calcium Phosphorus Magnesium Total Bilirubin AST ALT Alkaline Phosphatase Total Protein Albumin Globulin Albumin/Globulin Ratio EKG/Cardiology Studies: Cardiology / EKG Studies 02/08/17 06:00 ELECTROCARDIOGRAM DAILY Comment: Mode Of Transportation: Reason For Exam: hypertension Isolation: Contact Fingerstick Blood Sugar Results: 92 Critical Care Progress Note - Nutrition Nutrition: Nutrition Category Date Time Status Liquid Diet [DIET] Diets 02/07/17 Dinner Active Assessment/Plan (1) PRES (posterior reversible encephalopathy syndrome) Current Visit: Yes Status: Acute Priority: High (2) Seizure Current Visit: Yes Status: Resolved (3) Benzodiazepine withdrawal Current Visit: Yes Status: Acute (4) Narcotic withdrawal Current Visit: Yes Status: Acute (5) Lumbar back pain Current Visit: Yes Status: Chronic - Date & Time Date: 02/08/17 Time: 10:53
--- NOTE | 2017-02-08 10:55 | PCM.PSYCH ---
Initial Psychiatric Evaluation - Initial Psychiatric Evaluation Type of Admission: Voluntary Legal Status: Capacity Chief Complaint (in patient's own words): "I'm anxious" History of Present Illness and Precipitating Events: The patient is seen, chart reviewed and case discussed. Consultation was requested because of patient's mental status change. This is a 26-year-old female, single with 3 children aged 1, 5 and 6. The patient lives with her boyfriend and they have 3 children. She is unemployed. The patient states that she was having some depressive symptoms and anxiety and that escalated to a point yesterday where she had panic attacks and eventually fainted. She claims this happened twice in a week. According to her records, her doctor had stopped her Xanax and painkillers but the patient denies that. Moreover, she was not even given Xanax, but 3 or 4 pills of Ativan. She denies using any drugs or alcohol and she also denies overusing her painkillers. She admits to feeling depressed and anxious but denies suicidal ideation and she also denies psychotic or manic symptoms. Past psych history: Denies Family psych history: Denies Medical history: Gastric bypass surgery in December 2015 and a repair surgery and August 2016. Current Medications: Active Medications Generic Name Dose Route Start Last Admin Trade Name Freq PRN Reason Stop Dose Admin Acetaminophen 650 mg 02/06/17 19:58 Tylenol 325mg Tab PO Q6 PRN Headache Amlodipine Besylate 10 mg 02/06/17 20:04 02/08/17 09:31 Norvasc PO 10 mg DAILY TIFFANIE Administration Clonazepam 0.5 mg 02/06/17 20:15 02/08/17 09:31 Klonopin PO 0.5 mg BID TIFFANIE Administration Enoxaparin Sodium 40 mg 02/07/17 10:00 02/08/17 09:32 Lovenox SC 40 mg DAILY TIFFANIE Administration Famotidine 20 mg 02/06/17 22:00 02/08/17 09:31 Pepcid PO 20 mg Q12 TIFFANIE Administration Hydromorphone HCl 1 mg 02/06/17 19:58 02/08/17 10:40 Dilaudid IVP 1 mg Q6H PRN Administration Pain, severe (8-10) Sodium Chloride 1,000 mls @ 100 mls/hr 02/06/17 20:00 02/08/17 02:29 Sodium Chloride 0.9% IV 100 mls/hr .Q10H TIFFANIE Administration Levetiracetam 500 mg/ Sodium 105 mls @ 420 mls/hr 02/07/17 14:15 02/08/17 02: 30 Chloride IVPB 420 mls/hr Q12H TIFFANIE Administration Labetalol HCl 400 mg 02/08/17 09:30 02/08/17 09:54 Trandate PO Not Given Q6 TIFFANIE Lorazepam 2 mg 02/06/17 20:04 02/07/17 16:47 Ativan IVP 2 mg Q2H PRN Administration Anxiety Morphine Sulfate 4 mg 02/06/17 19:58 02/08/17 07:44 Morphine IVP 4 mg Q4H PRN Administration Pain, moderate (4-7) Ondansetron HCl 4 mg 02/06/17 19:58 Zofran Inj IVP Q6H PRN Nausea/Vomiting Oxycodone/Acetaminophen 1 tab 02/06/17 19:58 Percocet 5/325 Mg Tab PO 02/09/17 19:59 Q4H PRN Pain, Mild (1-3) Saliva Substitute 10 ml 02/07/17 18:50 02/08/17 04:26 First Magic Mouthwash PO 10 ml Q4 PRN Administration Pain, moderate (4-7) Past Psychiatric History - Past Psychiatric History Previous Treatment History: None Pertinent Medical Hx (Current Medical&Sleep Prob, Allergies): Allergies Allergy/AdvReac Type Severity Reaction Status Date / Time No Known Allergies Allergy Verified 09/08/16 12:07 Lorazepam [Ativan] 0.5 mg PO PRN PRN 02/06/17 Ondansetron HCl [Zofran] 4 mg PO PRN PRN 02/06/17 amLODIPine [Norvasc] 10 mg PO DAILY 02/06/17 oxyCODONE/Acetaminophen [Percocet 5/325 mg Tab] 1 tab PO PRN PRN 02/06/17 Review of Systems - Neurological Neurological: UNREMARKABLE - Psychiatric Psychiatric: Abnormal Sleep Pattern, Anhedonia, Anxiety, Change in Appetite, Depression (mild), Difficulty Concentrating. absent: Auditory Hallucinations, Homicidal Ideation, Suicidal Ideation Mental Status Examination - Personal Presentation Personal Presentation: Looks older than stated age - Affect Affect: Constricted - Motor Activity Motor Activity: Calm - Reliability in Providing Information Reliability in Providing Information: Good - Speech Speech: Organized - Mood Mood: Depressed, Anxious - Formal Thought Process Formal Thought Process: No Impairment - Cognitive Functions Orientation: Person, Place, Situation, Time Sensorium: Alert Attention/Concentration: Easily distracted Abstract Thinking: [place] Estimate of Intelligence: Average Judgement: Intact, as evidence by: Insight regarding need for hospitalization Memory: Recent intact, as evidence by: Ability to recall events of the day, Remote intact, as evidenced by: Abilit to recall sig. life events - Risk Risk: Diminished functioning - Strength & Assets Inventory Strength & Assets Inventory: Family support, Cooperative - Limitations Limitations: Other DSM 5 DX - DSM 5 DSM 5 Diagnosis: Major depression, single, moderate Panic d/o r/o ETIENNE - Recommended/Plan of Treatment Treatment Recommendations and Plan of Treatment: Start lexapro klonopin low dose is already started Support an dpsyhoed refer to psych - outpt - after d/c 34 min
--- NOTE | 2017-02-08 13:08 | CP.PCM.PN ---
Subjective - Date & Time of Evaluation Date of Evaluation: 02/08/17 Time of Evaluation: 11:00 - Subjective Subjective: Ms. Dominguez was seen and examined today in the ICU with her mother at bedside. There were no acute events overnight. She continued to have some mild confusion regarding the date, but was able to answer other questions appropriately. She had no new complaints. Objective - Vital Signs/Intake and Output Vital Signs (last 24 hours): Temp Pulse Resp BP Pulse Ox 97.2 F L 104 H 24 127/84 98 02/08/17 08:00 02/08/17 10:00 02/08/17 10:00 02/08/17 09:05 02/08/17 10:00 Intake and Output: 02/08/17 02/08/17 06:59 18:59 Intake Total 1900 750 Output Total 805 301 Balance 1095 449 - Medications Medications: Current Medications Acetaminophen (Tylenol 325mg Tab) 650 mg PO Q6 PRN PRN Reason: Headache Amlodipine Besylate (Norvasc) 10 mg PO DAILY [facility] Last Admin: 02/08/17 09:31 Dose: 10 mg Clonazepam (Klonopin) 0.5 mg PO BID [facility] Last Admin: 02/08/17 09:31 Dose: 0.5 mg Enoxaparin Sodium (Lovenox) 40 mg SC DAILY [facility] Last Admin: 02/08/17 09:32 Dose: 40 mg Famotidine (Pepcid) 20 mg PO Q12 [facility] Last Admin: 02/08/17 09:31 Dose: 20 mg Hydromorphone HCl (Dilaudid) 1 mg IVP Q6H PRN PRN Reason: Pain, severe (8-10) Last Admin: 02/08/17 10:40 Dose: 1 mg Sodium Chloride (Sodium Chloride 0.9%) 1,000 mls @ 100 mls/hr IV .Q10H [facility] Last Admin: 02/08/17 12:40 Dose: 100 mls/hr Levetiracetam 500 mg/ Sodium (Chloride) 105 mls @ 420 mls/hr IVPB Q12H [facility] Last Admin: 02/08/17 02:30 Dose: 420 mls/hr Labetalol HCl (Trandate) 400 mg PO Q6 [facility] Last Admin: 02/08/17 12:39 Dose: 400 mg Lorazepam (Ativan) 2 mg IVP Q2H PRN PRN Reason: Anxiety Last Admin: 02/07/17 16:47 Dose: 2 mg Morphine Sulfate (Morphine) 4 mg IVP Q4H PRN PRN Reason: Pain, moderate (4-7) Last Admin: 02/08/17 07:44 Dose: 4 mg Ondansetron HCl (Zofran Inj) 4 mg IVP Q6H PRN PRN Reason: Nausea/Vomiting Oxycodone/Acetaminophen (Percocet 5/325 Mg Tab) 1 tab PO Q4H PRN PRN Reason: Pain, Mild (1-3) Stop: 02/09/17 19:59 Saliva Substitute (First Magic Mouthwash) 10 ml PO Q4 PRN PRN Reason: Pain, moderate (4-7) Last Admin: 02/08/17 12:41 Dose: 10 ml - Labs Labs: 02/08/17 06:23 02/08/17 06:23 PT 12.7 SECONDS (9.7-12.2) H 02/08/17 06:23 INR 1.1 02/08/17 06:23 APTT 30 SECONDS (21-34) D 02/08/17 06:23 - Neurological Exam Neurological Exam: Awake, CN II-XII Intact, Reflexes Normal Neuro motor strength exam: Left Upper Extremity: 5, Right Upper Extremity: 5, Left Lower Extremity: 5, Right Lower Extremity: 5 Additional comments: Essentially neurologically unchanged. Assessment and Plan (1) PRES (posterior reversible encephalopathy syndrome) Assessment & Plan: Continue BP control to maintain normo-tension. May repeat MRI of the brain in 72 hours. Continue Keppra for now. No clinical seizures. PT/OT/ST and cognitive therapy are recommended. Status: Acute
--- NOTE | 2017-02-08 13:37 | CP.PCM.PN ---
Subjective - Date & Time of Evaluation Date of Evaluation: 02/08/17 Time of Evaluation: 13:35 - Subjective Subjective: NO FURTHER SEIZURES BP STABLE MRI NOTED , NON SPECIFIC , ? ENCEPHALOPATHY, ISCHEMIC CONT KEPPRA Objective - Vital Signs/Intake and Output Vital Signs (last 24 hours): Temp Pulse Resp BP Pulse Ox 97.2 F L 104 H 24 127/84 98 02/08/17 08:00 02/08/17 10:00 02/08/17 10:00 02/08/17 09:05 02/08/17 10:00 Intake and Output: 02/08/17 02/08/17 11:59 23:59 Intake Total 1950 100 Output Total 1106 Balance 844 100 - Medications Medications: Current Medications Acetaminophen (Tylenol 325mg Tab) 650 mg PO Q6 PRN PRN Reason: Headache Amlodipine Besylate (Norvasc) 10 mg PO DAILY [facility] Last Admin: 02/08/17 09:31 Dose: 10 mg Clonazepam (Klonopin) 0.5 mg PO BID [facility] Last Admin: 02/08/17 09:31 Dose: 0.5 mg Enoxaparin Sodium (Lovenox) 40 mg SC DAILY [facility] Last Admin: 02/08/17 09:32 Dose: 40 mg Famotidine (Pepcid) 20 mg PO Q12 [facility] Last Admin: 02/08/17 09:31 Dose: 20 mg Hydromorphone HCl (Dilaudid) 1 mg IVP Q6H PRN PRN Reason: Pain, severe (8-10) Last Admin: 02/08/17 10:40 Dose: 1 mg Sodium Chloride (Sodium Chloride 0.9%) 1,000 mls @ 100 mls/hr IV .Q10H [facility] Last Admin: 02/08/17 12:40 Dose: 100 mls/hr Levetiracetam 500 mg/ Sodium (Chloride) 105 mls @ 420 mls/hr IVPB Q12H [facility] Last Admin: 02/08/17 02:30 Dose: 420 mls/hr Labetalol HCl (Trandate) 400 mg PO Q6 [facility] Last Admin: 02/08/17 12:39 Dose: 400 mg Lorazepam (Ativan) 2 mg IVP Q2H PRN PRN Reason: Anxiety Last Admin: 02/07/17 16:47 Dose: 2 mg Morphine Sulfate (Morphine) 4 mg IVP Q4H PRN PRN Reason: Pain, moderate (4-7) Last Admin: 02/08/17 07:44 Dose: 4 mg Ondansetron HCl (Zofran Inj) 4 mg IVP Q6H PRN PRN Reason: Nausea/Vomiting Oxycodone/Acetaminophen (Percocet 5/325 Mg Tab) 1 tab PO Q4H PRN PRN Reason: Pain, Mild (1-3) Stop: 02/09/17 19:59 Saliva Substitute (First Magic Mouthwash) 10 ml PO Q4 PRN PRN Reason: Pain, moderate (4-7) Last Admin: 02/08/17 12:41 Dose: 10 ml - Labs Labs: 02/08/17 06:23 02/08/17 06:23 PT 12.7 SECONDS (9.7-12.2) H 02/08/17 06:23 INR 1.1 02/08/17 06:23 APTT 30 SECONDS (21-34) D 02/08/17 06:23
--- NOTE | 2017-02-08 14:43 | CP.CCUPN ---
<Tim Fernandez - Last Filed: 02/08/17 14:41> CCU Subjective - Physician Review Subjective (Free Text): 02/07/17 14:29 Patient seen and examined at bedside. No acute events overnight. No acute distress. Nursing staff reports no issues. Patient denies fever, chills, N/V/D/C , chest pain, SOB, cough, abdominal pain, and numbness or tingling. Today, patient remains hypertensive. Per Dr. Ponce's request, mag sulfate 2g was given for BP control. The patient is pending MRI Brain w/ and w/o contrast. The patient was seen by the surgical team as well following rounds. Dr. Garay was also consulted to see the patient. The patient was started on Keppra 500mg IV BID. Prior to rounds, the patient's potassium was replaced. 02/08/17 14:41 Patient seen and examined at bedside. No acute distress. No acute events overnight. Nursing staff reports no issues. The patient complains of abdominal and back pain. The patient reports that the pain has improved since yesterday. The patient denies fever, chills, N/V/D/C, chest pain, SOB, cough, and paresthesias. Today on rounds, the patient is normotensive at 127/84, not exceeding 140/90. MRI brain w/ and w/out contrast shows consistent findings with PRES syndrome. Surgical team recommends no surgical intervention at this time. Dr. Garay was consulted to see the patient. The patient is hemodynamically stable for transfer to telemetry. A wound culture was ordered, and the patient's potassium and magnesium were replaced. CCU Objective - Vital Signs / Intake & Output Vital Signs (Last 4 hours): Vital Signs Pulse Resp BP Pulse Ox 02/08/17 14:12 109 H 20 134/83 100 02/08/17 14:00 108 H 25 H 98 02/08/17 13:12 103 H 25 H 127/85 99 02/08/17 13:00 105 H 30 H 121/83 99 02/08/17 12:48 106 H 28 H 100 Intake and Output (Last 8hrs): Intake & Output 02/07/17 02/08/17 02/08/17 22:59 06:59 14:59 Intake Total 1150 1400 1100 Output Total 451 805 701 Balance 699 595 399 Weight 77.649 kg Intake: Intake, IV Amount 1000 900 900 Left PICC 200 100 Right Hand 800 900 800 Oral 150 500 200 Output: Drainage 1 5 1 Right Medial Abdomen 1 5 1 Urine 450 800 700 Urethral (Munoz) 50 Urine, Voided 400 800 700 Other: # Voids Urine, Voided 1 # Bowel Movements 0 - Physical Exam Head: Positive for: Atraumatic, Normocephalic Pupils: Positive for: PERRL Extroacular Muscles: Positive for: EOMI Conjunctiva: Positive for: Normal. Negative for: Injected Mouth: Positive for: Moist Mucous Membranes. Negative for: Drooling Nose (External): Positive for: Atraumatic Neck: Positive for: Normal Range of Motion. Negative for: JVD, Lymphadenopathy Respiratory/Chest: Positive for: Clear to Auscultation, Good Air Exchange. Negative for: Respiratory Distress, Accessory Muscle Use, Wheezes, Rales, Rhonchi Cardiovascular: Positive for: Regular Rate and Rhythm, Normal S1, S2, Peripheal Pulses Present. Negative for: Murmurs Abdomen: Positive for: Tenderness (diffuse- improved), Normal Bowel Sounds, Scars. Negative for: Distention, Peritoneal Signs, Rebound, Guarding Back: Positive for: Normal Inspection. Negative for: CVA Tenderness Upper Extremity: Positive for: Normal Inspection, Normal ROM, NORMAL PULSES, Neurovascularly Intact, Capillary Refill < 2s. Negative for: Cyanosis, Edema Lower Extremity: Positive for: Normal Inspection, NORMAL PULSES, Normal ROM, Neurovascularly Intact, Capillary Refill < 2 s. Negative for: Edema, CALF TENDERNESS, Tenderness Neurological: Positive for: CN II-XII Intact, Speech Normal Skin: Positive for: Warm, Dry, Normal Color. Negative for: Rashes Psychiatric: Positive for: Alert, Oriented x 3. Negative for: Normal Affect - Medications Active Medications: Active Medications Generic Name Dose Route Start Last Admin Trade Name Freq PRN Reason Stop Dose Admin Acetaminophen 650 mg 02/06/17 19:58 Tylenol 325mg Tab PO Q6 PRN Headache Amlodipine Besylate 10 mg 02/06/17 20:04 02/08/17 09:31 Norvasc PO 10 mg DAILY TIFFANIE Administration Clonazepam 0.5 mg 02/06/17 20:15 02/08/17 09:31 Klonopin PO 0.5 mg BID TIFFANIE Administration Enoxaparin Sodium 40 mg 02/07/17 10:00 02/08/17 09:32 Lovenox SC 40 mg DAILY TIFFANIE Administration Escitalopram Oxalate 5 mg 02/09/17 10:00 Lexapro PO DAILY [facility] Famotidine 20 mg 02/06/17 22:00 02/08/17 09:31 Pepcid PO 20 mg Q12 TIFFANIE Administration Hydromorphone HCl 1 mg 02/06/17 19:58 02/08/17 10:40 Dilaudid IVP 1 mg Q6H PRN Administration Pain, severe (8-10) Sodium Chloride 1,000 mls @ 100 mls/hr 02/06/17 20:00 02/08/17 12:40 Sodium Chloride 0.9% IV 100 mls/hr .Q10H TIFFANIE Administration Levetiracetam 500 mg/ Sodium 105 mls @ 420 mls/hr 02/07/17 14:15 02/08/17 13: 55 Chloride IVPB 420 mls/hr Q12H [facility] Administration Labetalol HCl 400 mg 02/08/17 09:30 02/08/17 12:39 Trandate PO 400 mg Q6 [facility] Administration Lorazepam 2 mg 02/06/17 20:04 02/07/17 16:47 Ativan IVP 2 mg Q2H PRN Administration Anxiety Morphine Sulfate 4 mg 02/06/17 19:58 02/08/17 13:58 Morphine IVP 4 mg Q4H PRN Administration Pain, moderate (4-7) Ondansetron HCl 4 mg 02/06/17 19:58 Zofran Inj IVP Q6H PRN Nausea/Vomiting Oxycodone/Acetaminophen 1 tab 02/06/17 19:58 Percocet 5/325 Mg Tab PO 02/09/17 19:59 Q4H PRN Pain, Mild (1-3) Saliva Substitute 10 ml 02/07/17 18:50 02/08/17 12:41 First Magic Mouthwash PO 10 ml Q4 PRN Administration Pain, moderate (4-7) - Patient Studies Lab Studies: Microbiology Studies 02/08/17 10:00 Gram Stain - Final Abdomen 02/06/17 20:00 Blood Culture - Preliminary Blood NO GROWTH AFTER 24 HOURS 02/06/17 20:00 Blood Culture - Preliminary Blood NO GROWTH AFTER 24 HOURS Lab Studies 02/08/17 02/08/17 02/08/17 Range/Units 11:48 07:34 06:23 WBC (4.8-10.8) K/uL RBC (3.80-5.20) Mil/uL Hgb (11.0-16.0) g/dL Hct (34.0-47.0) % MCV (81.0-99.0) fL MCH (27.0-31.0) pg MCHC (33.0-37.0) g/dL RDW (11.5-14.5) % Plt Count (130-400) K/uL MPV (7.2-11.7) fL Neut % (Auto) (50.0-75.0) % Lymph % (Auto) (20.0-40.0) % [place] % (Auto) (0.0-10.0) % Eos % (Auto) (0.0-4.0) % Baso % (Auto) (0.0-2.0) % Neut # (1.8-7.0) K/uL Lymph # (1.0-4.3) K/uL [place] # (0.0-0.8) K/uL Eos # (0.0-0.7) K/uL Baso # (0.0-0.2) K/uL PT (9.7-12.2) SECONDS INR APTT (21-34) SECONDS Sodium 133 (132-148) mmol/L Potassium 3.4 L (3.6-5.2) mmol/L Chloride 101 (98-107) mmol/L Carbon Dioxide 26 (22-30) mmol/L Anion Gap 9 L (10-20) BUN 6 L (7-17) mg/dL Creatinine 0.4 L (0.7-1.2) MG/DL Est GFR ( Amer) > 60 Est GFR (Non-Af Amer) > 60 POC Glucose (mg/dL) 100 92 (65-110) mg/dL Random Glucose 80 (65-105) mg/dL Calcium 8.4 L (8.6-10.4) mg/dl Phosphorus 3.6 (2.5-4.5) mg/dL Magnesium 1.9 (1.6-2.3) mg/dL Total Bilirubin 0.6 (0.2-1.3) mg/dL AST 14 D (14-36) U/L ALT 17 (9-52) U/L Alkaline Phosphatase 56 (38-126) U/L Total Protein 6.0 L (6.3-8.3) g/dL Albumin 2.9 L (3.5-5.0) g/dL Globulin 3.1 (2.2-3.9) gm/dL Albumin/Globulin Ratio 0.9 L (1.0-2.1) 02/08/17 02/08/17 02/07/17 Range/Units 06:23 06:23 21:33 WBC 7.8 (4.8-10.8) K/uL RBC 3.37 L (3.80-5.20) Mil/uL Hgb 10.0 L (11.0-16.0) g/dL Hct 29.4 L (34.0-47.0) % MCV 87.3 (81.0-99.0) fL MCH 29.6 (27.0-31.0) pg MCHC 33.9 (33.0-37.0) g/dL RDW 13.8 (11.5-14.5) % Plt Count 214 (130-400) K/uL MPV 8.6 (7.2-11.7) fL Neut % (Auto) 74.8 (50.0-75.0) % Lymph % (Auto) 13.2 L (20.0-40.0) % [place] % (Auto) 9.4 (0.0-10.0) % Eos % (Auto) 2.3 (0.0-4.0) % Baso % (Auto) 0.3 (0.0-2.0) % Neut # 5.8 (1.8-7.0) K/uL Lymph # 1.0 (1.0-4.3) K/uL [place] # 0.7 (0.0-0.8) K/uL Eos # 0.2 (0.0-0.7) K/uL Baso # 0.0 (0.0-0.2) K/uL PT 12.7 H (9.7-12.2) SECONDS INR 1.1 APTT 30 D (21-34) SECONDS Sodium (132-148) mmol/L Potassium (3.6-5.2) mmol/L Chloride (98-107) mmol/L Carbon Dioxide (22-30) mmol/L Anion Gap (10-20) BUN (7-17) mg/dL Creatinine (0.7-1.2) MG/DL Est GFR ( Amer) Est GFR (Non-Af Amer) POC Glucose (mg/dL) 92 (65-110) mg/dL Random Glucose (65-105) mg/dL Calcium (8.6-10.4) mg/dl Phosphorus (2.5-4.5) mg/dL Magnesium (1.6-2.3) mg/dL Total Bilirubin (0.2-1.3) mg/dL AST (14-36) U/L ALT (9-52) U/L Alkaline Phosphatase (38-126) U/L Total Protein (6.3-8.3) g/dL Albumin (3.5-5.0) g/dL Globulin (2.2-3.9) gm/dL Albumin/Globulin Ratio (1.0-2.1) /02/18 Range/Units 18:21 WBC (4.8-10.8) K/uL RBC (3.80-5.20) Mil/uL Hgb (11.0-16.0) g/dL Hct (34.0-47.0) % MCV (81.0-99.0) fL MCH (27.0-31.0) pg MCHC (33.0-37.0) g/dL RDW (11.5-14.5) % Plt Count (130-400) K/uL MPV (7.2-11.7) fL Neut % (Auto) (50.0-75.0) % Lymph % (Auto) (20.0-40.0) % [place] % (Auto) (0.0-10.0) % Eos % (Auto) (0.0-4.0) % Baso % (Auto) (0.0-2.0) % Neut # (1.8-7.0) K/uL Lymph # (1.0-4.3) K/uL [place] # (0.0-0.8) K/uL Eos # (0.0-0.7) K/uL Baso # (0.0-0.2) K/uL PT (9.7-12.2) SECONDS INR APTT (21-34) SECONDS Sodium (132-148) mmol/L Potassium (3.6-5.2) mmol/L Chloride (98-107) mmol/L Carbon Dioxide (22-30) mmol/L Anion Gap (10-20) BUN (7-17) mg/dL Creatinine (0.7-1.2) MG/DL Est GFR ( Amer) Est GFR (Non-Af Amer) POC Glucose (mg/dL) 113 H (65-110) mg/dL Random Glucose (65-105) mg/dL Calcium (8.6-10.4) mg/dl Phosphorus (2.5-4.5) mg/dL Magnesium (1.6-2.3) mg/dL Total Bilirubin (0.2-1.3) mg/dL AST (14-36) U/L ALT (9-52) U/L Alkaline Phosphatase (38-126) U/L Total Protein (6.3-8.3) g/dL Albumin (3.5-5.0) g/dL Globulin (2.2-3.9) gm/dL Albumin/Globulin Ratio (1.0-2.1) Laboratory Results - last 24 hr 02/07/17 02/07/17 02/08/17 18:21 21:33 06:23 WBC 7.8 RBC 3.37 L Hgb 10.0 L Hct 29.4 L MCV 87.3 MCH 29.6 MCHC 33.9 RDW 13.8 Plt Count 214 MPV 8.6 Neut % (Auto) 74.8 Lymph % (Auto) 13.2 L [place] % (Auto) 9.4 Eos % (Auto) 2.3 Baso % (Auto) 0.3 Neut # 5.8 Lymph # 1.0 [place] # 0.7 Eos # 0.2 Baso # 0.0 PT INR APTT Sodium Potassium Chloride Carbon Dioxide Anion Gap BUN Creatinine Est GFR ( Amer) Est GFR (Non-Af Amer) POC Glucose (mg/dL) 113 H 92 Random Glucose Calcium Phosphorus Magnesium Total Bilirubin AST ALT Alkaline Phosphatase Total Protein Albumin Globulin Albumin/Globulin Ratio 02/08/17 02/08/1702/08/17 06:23 06:23 07:34 WBC RBC Hgb Hct MCV MCH MCHC RDW Plt Count MPV Neut % (Auto) Lymph % (Auto) [place] % (Auto) Eos % (Auto) Baso % (Auto) Neut # Lymph # [place] # Eos # Baso # PT 12.7 H INR 1.1 APTT 30 D Sodium 133 Potassium 3.4 L Chloride 101 Carbon Dioxide 26 Anion Gap 9 L BUN 6 L Creatinine 0.4 L Est GFR ( Amer) > 60 Est GFR (Non-Af Amer) > 60 POC Glucose (mg/dL) 92 Random Glucose 80 Calcium 8.4 L Phosphorus 3.6 Magnesium 1.9 Total Bilirubin 0.6 AST 14 D ALT 17 Alkaline Phosphatase 56 Total Protein 6.0 L Albumin 2.9 L Globulin 3.1 Albumin/Globulin Ratio 0.9 L 02/08/17 11:48 WBC RBC Hgb Hct MCV MCH MCHC RDW Plt Count MPV Neut % (Auto) Lymph % (Auto) [place] % (Auto) Eos % (Auto) Baso % (Auto) Neut # Lymph # [place] # Eos # Baso # PT INR APTT Sodium Potassium Chloride Carbon Dioxide Anion Gap BUN Creatinine Est GFR ( Amer) Est GFR (Non-Af Amer) POC Glucose (mg/dL) 100 Random Glucose Calcium Phosphorus Magnesium Total Bilirubin AST ALT Alkaline Phosphatase Total Protein Albumin Globulin Albumin/Globulin Ratio EKG/Cardiology Studies: Cardiology / EKG Studies 02/08/17 06:00 ELECTROCARDIOGRAM DAILY Comment: Mode Of Transportation: Reason For Exam: hypertension Isolation: Contact Fingerstick Blood Sugar Results: 92 Review of Systems - Review of Systems Review of Systems: All systems: reviewed and no additional remarkable complaints except - Constitutional Constitutional: absent: Fever, Chills - EENT Eyes: absent: Blind Spots, Blurred Vision Ears: absent: Decreased Hearing, Tinnitus Nose/Mouth/Throat: absent: Nose Pain, Facial Pain, Neck Pain - Cardiovascular Cardiovascular: absent: Chest Pain, Palpitations, Syncope - Respiratory Respiratory: absent: Cough, Dyspnea, Dyspnea on Exertion - Gastrointestinal Gastrointestinal: Abdominal Pain (diffuse). absent: Constipation, Diarrhea, Vomiting - Genitourinary Genitourinary: absent: Change in Urinary Stream, Difficulty Urinating - Musculoskeletal Musculoskeletal: Back Pain. absent: Arthralgias, Myalgias, Stiffness, Tingling - Integumentary Integumentary: absent: Lesions, Rash, Wounds - Neurological Neurological: absent: Dizziness, Numbness, Focal Weakness, Paresthesias, Sensory Deficit, Syncope, Tingling, Tremor, Vertigo, Weakness - Psychiatric Psychiatric: absent: Suicidal Ideation - Endocrine Endocrine: absent: Cold Intolorance, Heat Intolorance Critical Care Progress Note - Extremities/Vascular Does the Patient have a Central Venous Catheter?: Yes Insertion Site: L PICC Does the Patient need a Central Venous Catheter?: Yes Does the Patient have a Munoz Catheter?: No Does the Patient need a Munoz Catheter?: No - Prophylaxis GI Prophylaxis GI: Pepsid - Prophylaxis DVT Prophylaxis DVT: Lovenox - Nutrition Nutrition: Nutrition Category Date Time Status Liquid Diet [DIET] Diets 02/07/17 Dinner Active Assessment/Plan (1) PRES (posterior reversible encephalopathy syndrome) Current Visit: Yes Status: Acute Priority: High (2) Seizure Current Visit: Yes Status: Resolved (3) Benzodiazepine withdrawal Current Visit: Yes Status: Acute (4) Narcotic withdrawal Current Visit: Yes Status: Acute (5) Lumbar back pain Current Visit: Yes Status: Chronic - Assessment and Plan (Free Text) Plan: Patient Status: Medically stable for transfer to telemetry floor. Neuro: -lethargic; A&OX3 -Repeat MRI Brain in 72 hours -Seizures likely 2/2 to PRES syndrome vs withdrawal from BZD and opioid addiction -Keppra 500mg IV BID -Klonopin 0.5mg PO BID; Ativan 2mg IVP Q2H prn for breakthrough seizures and symptoms -dilaudid 1mg IVP Q6h prn and Morphine 4mg IVP q4h prn for pain -Zofran 4mg IVP q6h prn for nausea/vomiting Imaging: -02/07/17 MRI w/ and w/out contrast: Re- demonstrated to better advantage are patchy prolonged T2 signal changes seen within the subcortical white matter of the posterior frontal, parietal and occipital parietal watershed zones. Findings most likely represent sequela of posterior reversible encephalopathy syndrome (PRE gas). There is also a small focal area of restricted diffusion involving the right posterior superior parietal cortex that may represent which does not exhibit dark T2 signal on ADC map. This could represent a small area of reversible ischemia. Followup MRI at interval recommended to assess for resolution. Findings discussed with ICU physician Dr. Sal at approximately 5: 20 p.m. with written down and read back verification. -02/06/17 CT head: Patchy white matter hypodensities in the occipital parietal regions, right greater than left. 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 Recommend MRI for further evaluation. Cardiovascular: -Maintain pressure <130/90 -Acute on chronic uncontrolled HTN -Norvasc 10mg PO daily -Labetalol 400mg PO Q6 TIFFANIE -182/131 on admission; currently 133/94 -mag Sulfate 2g IV started for BP control -If BP remains uncontrolled will add verapimil, if the pressure still remains uncontrolled with start nicardipine drip -02/07/17: ECG - sinus tachy; LVH; no ST-T wave abnormalities -02/06/17 ECHO: LVEF 57%. Unremarkable. Pulmonary: -No acute issues -Imaging: -02/06/17 CXR: No active pulmonary disease. Satisfactory position of recently placed PICC line. No pneumothorax identified. Gastrointestinal: -Surgery consulted for intra-abdominal drain complications following gastric sleeve in 2015 -Surgery recommendations (Dr. Bronson): no plans for surgical intervention ; follow-up with Dr. Clark following discharge -Imaging: -02/06/17 CT abd/pelvis: No evidence of bowel obstruction. Postoperative findings consistent with prior bariatric surgery. Absence of oral contrast precludes optimal assessment of the stomach/gastric remnant and findings associated with the stomach and small bowel. Hematology: -No acute issues -Hemodynamically stable Endocrine: -Hypokalemia- replaced with 20meq IV Renal: -Hypokalemia- replaced with 20meq IV -Hypomagnesemia- replaced with 1g IV Musculoskeletal: -PT eval and Treat Genitourinary: -no issues Infectious disease: -Leukocytosis resolved -02/08/17 wound culture collected- pending Psych: Dr. Garay on consult GI prophylaxis: Pepcid 20mg PO Q12 TIFFANIE DVT prophylaxis: Lovenox 40 mg SC daily Case discussed with Dr. Doron Fernandez PGY1 - Date & Time Date: 02/08/17 Time: 14:44 <Bryon Sal - Last Filed: 02/08/17 18:18> CCU Objective - Vital Signs / Intake & Output Vital Signs (Last 4 hours): Vital Signs Temp Pulse Resp BP Pulse Ox 02/08/17 17:49 107 H 19 119/82 99 02/08/17 17:12 100 H 28 H 120/74 100 02/08/17 17:00 98 H 26 H 98 02/08/17 16:12 99 H 20 113/62 99 02/08/17 16:00 100 F H 97 H 25 H 100 02/08/17 15:12 99 H 23 110/64 99 02/08/17 15:00 101 H 31 H 99 Intake and Output (Last 8hrs): Intake & Output 02/08/17 02/08/17 02/08/17 06:59 14:59 22:59 Intake Total 1400 1100 300 Output Total 805 701 Balance 595 399 300 Weight 171 lb 3 oz Intake: Intake, IV Amount 900 900 300 Left PICC 100 Right Hand 900 800 300 Oral 500 200 Output: Drainage 5 1 Right Medial Abdomen 5 1 Urine 800 700 Urine, Voided 800 700 Other: # Bowel Movements 0 - Medications Active Medications: Active Medications Generic Name Dose Route Start Last Admin Trade Name Freq PRN Reason Stop Dose Admin Acetaminophen 650 mg 02/06/17 19:58 Tylenol 325mg Tab PO Q6 PRN Headache Amlodipine Besylate 10 mg 02/06/17 20:04 02/08/17 09:31 Norvasc PO 10 mg DAILY TIFFANIE Administration Clonazepam 0.5 mg 02/06/17 20:15 02/08/17 17:48 Klonopin PO 0.5 mg BID TIFFANIE Administration Enoxaparin Sodium 40 mg 02/07/17 10:00 02/08/17 09:32 Lovenox SC 40 mg DAILY TIFFANIE Administration Escitalopram Oxalate 5 mg 02/09/17 10:00 Lexapro PO DAILY TIFFANIE Famotidine 20 mg 02/06/17 22:00 02/08/17 09:31 Pepcid PO 20 mg Q12 TIFFANIE Administration Hydromorphone HCl 1 mg 02/06/17 19:58 02/08/17 17:41 Dilaudid IVP 1 mg Q6H PRN Administration Pain, severe (8-10) Sodium Chloride 1,000 mls @ 100 mls/hr 02/06/17 20:00 02/08/17 12:40 Sodium Chloride 0.9% IV 100 mls/hr .Q10H TIFFANIE Administration Levetiracetam 500 mg/ Sodium 105 mls @ 420 mls/hr 02/07/17 14:15 02/08/17 13: 55 Chloride IVPB 420 mls/hr Q12H TIFFANIE Administration Labetalol HCl 400 mg 02/08/17 09:30 02/08/17 17:50 Trandate PO 400 mg Q6 TIFFANIE Administration Lorazepam 2 mg 02/06/17 20:04 02/07/17 16:47 Ativan IVP 2 mg Q2H PRN Administration Anxiety Morphine Sulfate 4 mg 02/06/17 19:58 02/08/17 13:58 Morphine IVP 4 mg Q4H PRN Administration Pain, moderate (4-7) Ondansetron HCl 4 mg 02/06/17 19:58 Zofran Inj IVP Q6H PRN Nausea/Vomiting Oxycodone/Acetaminophen 1 tab 02/06/17 19:58 Percocet 5/325 Mg Tab PO 02/09/17 19:59 Q4H PRN Pain, Mild (1-3) Saliva Substitute 10 ml 02/07/17 18:50 02/08/17 17:49 First Magic Mouthwash PO 10 ml Q4 PRN Administration Pain, moderate (4-7) - Patient Studies Lab Studies: Microbiology Studies 02/08/17 10:00 Gram Stain - Final Abdomen 02/06/17 20:00 Blood Culture - Preliminary Blood NO GROWTH AFTER 24 HOURS 02/06/17 20:00 Blood Culture - Preliminary Blood NO GROWTH AFTER 24 HOURS Lab Studies 02/08/17 02/08/17 02/08/17 Range/Units 16:13 11:48 07:34 WBC (4.8-10.8) K/uL RBC (3.80-5.20) Mil/uL Hgb (11.0-16.0) g/dL Hct (34.0-47.0) % MCV (81.0-99.0) fL MCH (27.0-31.0) pg MCHC (33.0-37.0) g/dL RDW (11.5-14.5) % Plt Count (130-400) K/uL MPV (7.2-11.7) fL Neut % (Auto) (50.0-75.0) % Lymph % (Auto) (20.0-40.0) % [place] % (Auto) (0.0-10.0) % Eos % (Auto) (0.0-4.0) % Baso % (Auto) (0.0-2.0) % Neut # (1.8-7.0) K/uL Lymph # (1.0-4.3) K/uL [place] # (0.0-0.8) K/uL Eos # (0.0-0.7) K/uL Baso # (0.0-0.2) K/uL PT (9.7-12.2) SECONDS INR APTT (21-34) SECONDS Sodium (132-148) mmol/L Potassium (3.6-5.2) mmol/L Chloride (98-107) mmol/L Carbon Dioxide (22-30) mmol/L Anion Gap (10-20) BUN (7-17) mg/dL Creatinine (0.7-1.2) MG/DL Est GFR ( Amer) Est GFR (Non-Af Amer) POC Glucose (mg/dL) 92 100 92 (65-110) mg/dL Random Glucose (65-105) mg/dL Calcium (8.6-10.4) mg/dl Phosphorus (2.5-4.5) mg/dL Magnesium (1.6-2.3) mg/dL Total Bilirubin (0.2-1.3) mg/dL AST (14-36) U/L ALT (9-52) U/L Alkaline Phosphatase (38-126) U/L Total Protein (6.3-8.3) g/dL Albumin (3.5-5.0) g/dL Globulin (2.2-3.9) gm/dL Albumin/Globulin Ratio (1.0-2.1) 02/08/17 02/08/17 02/08/17 Range/Units 06:23 06:23 06:23 WBC 7.8 (4.8-10.8) K/uL RBC 3.37 L (3.80-5.20) Mil/uL Hgb 10.0 L (11.0-16.0) g/dL Hct 29.4 L (34.0-47.0) % MCV 87.3 (81.0-99.0) fL MCH 29.6 (27.0-31.0) pg MCHC 33.9 (33.0-37.0) g/dL RDW 13.8 (11.5-14.5) % Plt Count 214 (130-400) K/uL MPV 8.6 (7.2-11.7) fL Neut % (Auto) 74.8 (50.0-75.0) % Lymph % (Auto) 13.2 L (20.0-40.0) % [place] % (Auto) 9.4 (0.0-10.0) % Eos % (Auto) 2.3 (0.0-4.0) % Baso % (Auto) 0.3 (0.0-2.0) % Neut # 5.8 (1.8-7.0) K/uL Lymph # 1.0 (1.0-4.3) K/uL [place] # 0.7 (0.0-0.8) K/uL Eos # 0.2 (0.0-0.7) K/uL Baso # 0.0 (0.0-0.2) K/uL PT 12.7 H (9.7-12.2) SECONDS INR 1.1 APTT 30 D (21-34) SECONDS Sodium 133 (132-148) mmol/L Potassium 3.4 L (3.6-5.2) mmol/L Chloride 101 (98-107) mmol/L Carbon Dioxide 26 (22-30) mmol/L Anion Gap 9 L (10-20) BUN 6 L (7-17) mg/dL Creatinine 0.4 L (0.7-1.2) MG/DL Est GFR ( Amer) > 60 Est GFR (Non-Af Amer) > 60 POC Glucose (mg/dL) (65-110) mg/dL Random Glucose 80 (65-105) mg/dL Calcium 8.4 L (8.6-10.4) mg/dl Phosphorus 3.6 (2.5-4.5) mg/dL Magnesium 1.9 (1.6-2.3) mg/dL Total Bilirubin 0.6 (0.2-1.3) mg/dL AST 14 D (14-36) U/L ALT 17 (9-52) U/L Alkaline Phosphatase 56 (38-126) U/L Total Protein 6.0 L (6.3-8.3) g/dL Albumin 2.9 L (3.5-5.0) g/dL Globulin 3.1 (2.2-3.9) gm/dL Albumin/Globulin Ratio 0.9 L (1.0-2.1) 02/07/17 02/07/17 Range/Units 21:33 18:21 WBC (4.8-10.8) K/uL RBC (3.80-5.20) Mil/uL Hgb (11.0-16.0) g/dL Hct (34.0-47.0) % MCV (81.0-99.0) fL MCH (27.0-31.0) pg MCHC (33.0-37.0) g/dL RDW (11.5-14.5) % Plt Count (130-400) K/uL MPV (7.2-11.7) fL Neut % (Auto) (50.0-75.0) % Lymph % (Auto) (20.0-40.0) % [place] % (Auto) (0.0-10.0) % Eos % (Auto) (0.0-4.0) % Baso % (Auto) (0.0-2.0) % Neut # (1.8-7.0) K/uL Lymph # (1.0-4.3) K/uL [place] # (0.0-0.8) K/uL Eos # (0.0-0.7) K/uL Baso # (0.0-0.2) K/uL PT (9.7-12.2) SECONDS INR APTT (21-34) SECONDS Sodium (132-148) mmol/L Potassium (3.6-5.2) mmol/L Chloride (98-107) mmol/L Carbon Dioxide (22-30) mmol/L Anion Gap (10-20) BUN (7-17) mg/dL Creatinine (0.7-1.2) MG/DL Est GFR ( Amer) Est GFR (Non-Af Amer) POC Glucose (mg/dL) 92 113 H (65-110) mg/dL Random Glucose (65-105) mg/dL Calcium (8.6-10.4) mg/dl Phosphorus (2.5-4.5) mg/dL Magnesium (1.6-2.3) mg/dL Total Bilirubin (0.2-1.3) mg/dL AST (14-36) U/L ALT (9-52) U/L Alkaline Phosphatase (38-126) U/L Total Protein (6.3-8.3) g/dL Albumin (3.5-5.0) g/dL Globulin (2.2-3.9) gm/dL Albumin/Globulin Ratio (1.0-2.1) Laboratory Results - last 24 hr 02/07/17 02/07/17 02/08/17 18:21 21:33 06:23 WBC 7.8 RBC 3.37 L Hgb 10.0 L Hct 29.4 L MCV 87.3 MCH 29.6 MCHC 33.9 RDW 13.8 Plt Count 214 MPV 8.6 Neut % (Auto) 74.8 Lymph % (Auto) 13.2 L [place] % (Auto) 9.4 Eos % (Auto) 2.3 Baso % (Auto) 0.3 Neut # 5.8 Lymph # 1.0 [place] # 0.7 Eos # 0.2 Baso # 0.0 PT INR APTT Sodium Potassium Chloride Carbon Dioxide Anion Gap BUN Creatinine Est GFR ( Amer) Est GFR (Non-Af Amer) POC Glucose (mg/dL) 113 H 92 Random Glucose Calcium Phosphorus Magnesium Total Bilirubin AST ALT Alkaline Phosphatase Total Protein Albumin Globulin Albumin/Globulin Ratio 02/08/17 02/08/17 02/08/17 06:23 06:23 07:34 WBC RBC Hgb Hct MCV MCH MCHC RDW Plt Count MPV Neut % (Auto) Lymph % (Auto) [place] % (Auto) Eos % (Auto) Baso % (Auto) Neut # Lymph # [place] # Eos # Baso # PT 12.7 H INR 1.1 APTT 30 D Sodium 133 Potassium 3.4 L Chloride 101 Carbon Dioxide 26 Anion Gap 9 L BUN 6 L Creatinine 0.4 L Est GFR ( Amer) > 60 Est GFR (Non-Af Amer) > 60 POC Glucose (mg/dL) 92 Random Glucose 80 Calcium 8.4 L Phosphorus 3.6 Magnesium 1.9 Total Bilirubin 0.6 AST 14 D ALT 17 Alkaline Phosphatase 56 Total Protein 6.0 L Albumin 2.9 L Globulin 3.1 Albumin/Globulin Ratio 0.9 L 02/08/17 02/08/17 11:48 16:13 WBC RBC Hgb Hct MCV MCH MCHC RDW Plt Count MPV Neut % (Auto) Lymph % (Auto) [place] % (Auto) Eos % (Auto) Baso % (Auto) Neut # Lymph # [place] # Eos # Baso # PT INR APTT Sodium Potassium Chloride Carbon Dioxide Anion Gap BUN Creatinine Est GFR ( Amer) Est GFR (Non-Af Amer) POC Glucose (mg/dL) 100 92 Random Glucose Calcium Phosphorus Magnesium Total Bilirubin AST ALT Alkaline Phosphatase Total Protein Albumin Globulin Albumin/Globulin Ratio EKG/Cardiology Studies: Cardiology / EKG Studies 02/08/17 06:00 ELECTROCARDIOGRAM DAILY Comment: Mode Of Transportation: Reason For Exam: hypertension Isolation: Contact Critical Care Progress Note - Nutrition Nutrition: Nutrition Category Date Time Status Liquid Diet [DIET] Diets 02/07/17 Dinner Active Attending/Attestation - Attestation I have personally seen and examined this patient.: Yes I have fully participated in the care of the patient.: Yes I have reviewed all pertinent clinical information: Yes Notes (Text): 02/08/17 18:17 Patient seen and examined in the intensive care unit. Case discussed with house staff in the morning rounds. Patient awake and responsive in no distress Denies headache Seen by neurology Blood pressure controlled Transfer to floor
[2017-02-09] MEDS: levETIRAcetam 500 MG in Sodium Chloride 0.9% 100 ML IVPB SCH ×2 (02:05→14:00)
[2017-02-09] MEDS: Morphine 4 MG/ML VIAL IVP PRN ×3 (03:47→17:34)
[2017-02-09] MEDS: Mag&Al/Simet/Diphen/Lido 237 ML KIT PO PRN (03:49)
[2017-02-09] MEDS ORDERED: Promethazine/Cod 6.25mg-10mg/5ml Syr UD PO ONE (04:37)
[2017-02-09] MEDS: HYDROmorphone 1 mg/ml ISec IVP PRN ×3 (06:10→19:58)
[2017-02-09 06:39] LABS: BASO % 0.3 % (0.0-2.0); EOS % 0.6 % (0.0-4.0); HEMATOCRIT 29.2 % (34.0-47.0); LYMPH # 0.7 K/uL (1.0-4.3); LYMPH % 10.5 % (20.0-40.0); MEAN CELL VOLUME 86.2 fL (81.0-99.0); MEAN CORPUSCULAR HEMOGLOBIN 28.8 pg (27.0-31.0); MEAN CORPUSCULAR HGB CONC 33.4 g/dL (33.0-37.0); MEAN PLATELET VOLUME 8.6 fL (7.2-11.7); MONO # 0.7 K/uL (0.0-0.8); MONO % 10.3 % (0.0-10.0); RED CELL DISTRIBUTION WIDTH 13.8 % (11.5-14.5); WHITE BLOOD COUNT 7.1 K/uL (4.8-10.8)
[2017-02-09 06:51] LABS: INR 1.3
[2017-02-09 07:01] LABS: CHLORIDE 100 mmol/L (98-107); POTASSIUM 3.1 mmol/L (3.6-5.2); SODIUM 131 mmol/L (132-148)
[2017-02-09 07:03] LABS: ALB/GLOB RATIO 0.9 (1.0-2.1); AST/SGOT 33 U/L (14-36); BILIRUBIN,TOTAL 0.8 mg/dL (0.2-1.3); CARBON DIOXIDE 21 mmol/L (22-30); GFR AFRICAN-AMERICAN > 60; TOTAL PROTEIN 5.8 g/dL (6.3-8.3)
[2017-02-09 07:04] LABS: ALKALINE PHOSPHATASE 74 U/L (38-126); ALT/SGPT 36 U/L (9-52); GLUCOSE,RANDOM 86 mg/dL (65-105); PHOSPHOROUS 3.5 mg/dL (2.5-4.5)
[2017-02-09 07:05] LABS: MAGNESIUM 1.5 mg/dL (1.6-2.3)
[2017-02-09 07:06] LABS: BLOOD UREA NITROGEN 3 mg/dL (7-17)
[2017-02-09] MEDS: Sodium Chloride 0.9% 1,000 ML IV SCH ×4 (08:10→20:08)
[2017-02-09] MEDS: Enoxaparin 40 mg Syringe SC SCH (09:35)
--- NOTE | 2017-02-09 13:39 | CP.PCM.PN ---
Subjective - Date & Time of Evaluation Date of Evaluation: 02/09/17 Time of Evaluation: 13:38 - Subjective Subjective: DROWSY TEMP 101 SEPTIC W/U DONE ID EVAL CHECK C/S OF ABD. WOUND Objective - Vital Signs/Intake and Output Vital Signs (last 24 hours): Temp Pulse Resp BP Pulse Ox 101.0 F H 106 H 18 121/80 96 02/09/17 12:00 02/09/17 07:20 02/09/17 07:20 02/09/17 07:20 02/09/17 07:20 Intake and Output: 02/09/17 02/09/17 11:59 23:59 Intake Total 1040 Output Total 5 Balance 1035 - Medications Medications: Current Medications Acetaminophen (Tylenol 325mg Tab) 650 mg PO Q6 PRN PRN Reason: Fever >100.4 F Last Admin: 02/09/17 12:00 Dose: 650 mg Amlodipine Besylate (Norvasc) 10 mg PO DAILY [facility] Last Admin: 02/09/17 09:34 Dose: 10 mg Clonazepam (Klonopin) 0.5 mg PO BID [facility] Last Admin: 02/09/17 09:34 Dose: 0.5 mg Enoxaparin Sodium (Lovenox) 40 mg SC DAILY [facility] Last Admin: 02/09/17 09:35 Dose: 40 mg Escitalopram Oxalate (Lexapro) 5 mg PO DAILY [facility] Last Admin: 02/09/17 09:34 Dose: 5 mg Famotidine (Pepcid) 20 mg PO Q12 [facility] Last Admin: 02/09/17 09:34 Dose: 20 mg Hydromorphone HCl (Dilaudid) 1 mg IVP Q6H PRN PRN Reason: Pain, severe (8-10) Last Admin: 02/09/17 06:10 Dose: 1 mg Sodium Chloride (Sodium Chloride 0.9%) 1,000 mls @ 100 mls/hr IV .Q10H [facility] Last Admin: 02/09/17 09:33 Dose: 100 mls/hr Levetiracetam 500 mg/ Sodium (Chloride) 105 mls @ 420 mls/hr IVPB Q12H [facility] Last Admin: 02/09/17 02:05 Dose: 420 mls/hr Potassium Chloride (Potassium Chloride 20 Meq/100 Ml) 20 meq in 100 mls @ 50 mls/hr IVPB Q2 TIFFANIE Stop: 02/09/17 13:59 Last Admin: 02/09/17 11:40 Dose: 50 mls/hr Piperacillin Sod/Tazobactam Sod (Zosyn 3.375 Gm Iv Premix) 3.375 gm in 50 mls @ 100 mls/hr IVPB Q8H [facility] Vancomycin HCl 1,000 mg/ (Sodium Chloride) 250 mls @ 166.6 mls/hr IVPB Q12H [facility] Labetalol HCl (Trandate) 400 mg PO Q6 TIFFANIE Last Admin: 02/09/17 05:56 Dose: 400 mg Lorazepam (Ativan) 2 mg IVP Q2H PRN PRN Reason: Anxiety Last Admin: 02/07/17 16:47 Dose: 2 mg Morphine Sulfate (Morphine) 4 mg IVP Q4H PRN PRN Reason: Pain, moderate (4-7) Last Admin: 02/09/17 09:35 Dose: 4 mg Ondansetron HCl (Zofran Inj) 4 mg IVP Q6H PRN PRN Reason: Nausea/Vomiting Oxycodone/Acetaminophen (Percocet 5/325 Mg Tab) 1 tab PO Q4H PRN PRN Reason: Pain, Mild (1-3) Stop: 02/09/17 19:59 Saliva Substitute (First Magic Mouthwash) 10 ml PO Q4 PRN PRN Reason: Pain, moderate (4-7) Last Admin: 02/09/17 03:49 Dose: 10 ml - Labs Labs: 02/09/17 06:26 02/09/17 06:26 PT 14.7 SECONDS (9.7-12.2) H 02/09/17 06:26 INR 1.3 02/09/17 06:26 APTT 22 SECONDS (21-34) D 02/09/17 06:26
--- NOTE | 2017-02-09 13:48 | RAD ---
HISTORY: fever COMPARISON: Chest x-ray performed 02/06/17 TECHNIQUE: Chest, one view. FINDINGS: Left-sided PICC extends to the cavoatrial junction. Esophagogastric stent. Examination limited by habitus and hypoinflation. LUNGS: Small left layering pleural effusion and associated consolidation. No definite pneumothorax. Please note that chest x-ray has limited sensitivity for the detection of pulmonary masses. CARDIOVASCULAR: Partially obscured cardiomegaly. OSSEOUS STRUCTURES: Degenerative changes of the spine. VISUALIZED UPPER ABDOMEN: Unremarkable. OTHER FINDINGS: None. IMPRESSION: Left-sided PICC extends to the cavoatrial junction. Esophagogastric stent. Small left layering pleural effusion and associated consolidation. Partially obscured cardiomegaly.
[2017-02-09] MEDS: Piperacill/Tazo 3.375gm in Dex 3.375 GM/50 ML BAG IVPB SCH ×2 (14:51→22:00)
[2017-02-09 15:12] LABS: RBC URINE < 1 /hpf (0-3); URINE BACTERIA RARE (<OCC); URINE BILIRUBIN NEGATIVE (NEGATIVE); URINE BLOOD 1+ (NEGATIVE); URINE COLOR Yellow (YELLOW); URINE GLUCOSE (UA) NORMAL (Normal); URINE KETONE NEGATIVE (NEGATIVE); URINE LEUKOCYTE ESTERASE NEG Leu/uL (Negative); URINE PROTEIN NEGATIVE (NEGATIVE); URINE UROBILINOGEN NORMAL mg/dL (0.2-1.0); WBC URINE 3 /hpf (0-5)
--- NOTE | 2017-02-09 17:17 | CP.PCM.CON ---
History of Present Illness - History of Present Illness History of Present Illness: INFECTIOUS DISEASE CONSULT; DICTATED; SEE REPORTS; DICTATION #[id number].. SEE ORDERS. Past Patient History - Past Medical History & Family History Past Medical History?: Yes - Past Social History Smoking Status: Never Smoked - CARDIAC Hx Hypertension: Yes - PULMONARY Hx Respiratory Disorders: No - NEUROLOGICAL Hx Neurological Disorder: No - HEENT Hx HEENT Problems: No - RENAL Hx Chronic Kidney Disease: No - ENDOCRINE/METABOLIC Hx Endocrine Disorders: No - HEMATOLOGICAL/ONCOLOGICAL Hx Blood Disorders: No - INTEGUMENTARY Hx Dermatological Problems: No - MUSCULOSKELETAL/RHEUMATOLOGICAL Hx Musculoskeletal Disorders: No Hx Falls: No - GASTROINTESTINAL Hx Gastrointestinal Disorders: No - GENITOURINARY/GYNECOLOGICAL Hx Genitourinary Disorders: No - PSYCHIATRIC Hx Substance Use: No - SURGICAL HISTORY Other/Comment: GASTRIC SLEEVE 08/25/2016. BARIATRIC SX 01/2017 - ANESTHESIA Hx Anesthesia: Yes Meds Allergies/Adverse Reactions: Allergies Allergy/AdvReac Type Severity Reaction Status Date / Time No Known Allergies Allergy Verified 09/08/16 12:07 - Medications Medications: Current Medications Acetaminophen (Tylenol 325mg Tab) 650 mg PO Q6 PRN PRN Reason: Fever >100.4 F Last Admin: 02/09/17 12:00 Dose: 650 mg Amlodipine Besylate (Norvasc) 10 mg PO DAILY [facility] Last Admin: 02/09/17 09:34 Dose: 10 mg Clonazepam (Klonopin) 0.5 mg PO BID [facility] Last Admin: 02/09/17 09:34 Dose: 0.5 mg Enoxaparin Sodium (Lovenox) 40 mg SC DAILY [facility] Last Admin: 02/09/17 09:35 Dose: 40 mg Escitalopram Oxalate (Lexapro) 5 mg PO DAILY [facility] Last Admin: 02/09/17 09:34 Dose: 5 mg Famotidine (Pepcid) 20 mg PO Q12 [facility] Last Admin: 02/09/17 09:34 Dose: 20 mg Hydromorphone HCl (Dilaudid) 1 mg IVP Q6H PRN PRN Reason: Pain, severe (8-10) Last Admin: 02/09/17 14:01 Dose: 1 mg Sodium Chloride (Sodium Chloride 0.9%) 1,000 mls @ 100 mls/hr IV .Q10H [facility] Last Admin: 02/09/17 09:33 Dose: 100 mls/hr Levetiracetam 500 mg/ Sodium (Chloride) 105 mls @ 420 mls/hr IVPB Q12H [facility] Last Admin: 02/09/17 14:00 Dose: 420 mls/hr Piperacillin Sod/Tazobactam Sod (Zosyn 3.375 Gm Iv Premix) 3.375 gm in 50 mls @ 100 mls/hr IVPB Q8H [facility] Last Admin: 02/09/17 14:51 Dose: 100 mls/hr Vancomycin HCl 1,000 mg/ (Sodium Chloride) 250 mls @ 166.6 mls/hr IVPB Q12H [facility] Last Admin: 02/09/17 14:51 Dose: 166.6 mls/hr Labetalol HCl (Trandate) 400 mg PO Q6 [facility] Last Admin: 02/09/17 12:45 Dose: 400 mg Lorazepam (Ativan) 2 mg IVP Q2H PRN PRN Reason: Anxiety Last Admin: 02/07/17 16:47 Dose: 2 mg Morphine Sulfate (Morphine) 4 mg IVP Q4H PRN PRN Reason: Pain, moderate (4-7) Last Admin: 02/09/17 09:35 Dose: 4 mg Nystatin (Nystatin Oral Susp) 5 ml PO QID [facility] Ondansetron HCl (Zofran Inj) 4 mg IVP Q6H PRN PRN Reason: Nausea/Vomiting Oxycodone/Acetaminophen (Percocet 5/325 Mg Tab) 1 tab PO Q4H PRN PRN Reason: Pain, Mild (1-3) Stop: 02/09/17 19:59 Saliva Substitute (First Magic Mouthwash) 10 ml PO Q4 PRN PRN Reason: Pain, moderate (4-7) Last Admin: 02/09/17 03:49 Dose: 10 ml Results - Vital Signs Recent Vital Signs: Last Vital Signs Temp 99.0 F 02/09/17 15:07 Pulse 95 H 02/09/17 15:07 Resp 20 02/09/17 15:07 BP 126/83 02/09/17 15:07 Pulse Ox 94 L 02/09/17 15:07 - Labs Result Diagrams: 02/09/17 06:26 02/09/17 06:26 Labs: Laboratory Results - last 24 hr 02/08/17 02/09/17 02/09/17 21:31 06:14 06:26 WBC 7.1 RBC 3.39 L Hgb 9.8 L Hct 29.2 L MCV 86.2 MCH 28.8 MCHC 33.4 RDW 13.8 Plt Count 203 MPV 8.6 Neut % (Auto) 78.3 H Lymph % (Auto) 10.5 L [place] % (Auto) 10.3 H Eos % (Auto) 0.6 Baso % (Auto) 0.3 Neut # 5.6 Lymph # 0.7 L [place] # 0.7 Eos # 0.0 Baso # 0.0 PT INR APTT Sodium Potassium Chloride Carbon Dioxide Anion Gap BUN Creatinine Est GFR ( Amer) Est GFR (Non-Af Amer) POC Glucose (mg/dL) 114 H 90 Random Glucose Calcium Phosphorus Magnesium Total Bilirubin AST ALT Alkaline Phosphatase Total Protein Albumin Globulin Albumin/Globulin Ratio Urine Color Urine Clarity Urine pH Ur Specific [place] Urine Protein Urine Glucose (UA) Urine Ketones Urine Blood Urine Nitrate Urine Bilirubin Urine Urobilinogen Ur Leukocyte Esterase Urine WBC (Auto) Urine RBC (Auto) Ur Squamous Epith Cells Urine Bacteria 02/09/17 02/09/17 02/09/17 06:26 06:26 11:36 WBC RBC Hgb Hct MCV MCH MCHC RDW Plt Count MPV Neut % (Auto) Lymph % (Auto) [place] % (Auto) Eos % (Auto) Baso % (Auto) Neut # Lymph # [place] # Eos # Baso # PT 14.7 H INR 1.3 APTT 22 D Sodium 131 L Potassium 3.1 L Chloride 100 Carbon Dioxide 21 L Anion Gap 13 BUN 3 L Creatinine 0.4 L Est GFR ( Amer) > 60 Est GFR (Non-Af Amer) > 60 POC Glucose (mg/dL) 77 Random Glucose 86 Calcium 8.0 L Phosphorus 3.5 Magnesium 1.5 L Total Bilirubin 0.8 AST 33 ALT 36 Alkaline Phosphatase 74 Total Protein 5.8 L Albumin 2.8 L Globulin 3.0 Albumin/Globulin Ratio 0.9 L Urine Color Urine Clarity Urine pH Ur Specific [place] Urine Protein Urine Glucose (UA) Urine Ketones Urine Blood Urine Nitrate Urine Bilirubin Urine Urobilinogen Ur Leukocyte Esterase Urine WBC (Auto) Urine RBC (Auto) Ur Squamous Epith Cells Urine Bacteria 02/09/17 02/09/17 15:06 16:19 WBC RBC Hgb Hct MCV MCH MCHC RDW Plt Count MPV Neut % (Auto) Lymph % (Auto) [place] % (Auto) Eos % (Auto) Baso % (Auto) Neut # Lymph # [place] # Eos # Baso # PT INR APTT Sodium Potassium Chloride Carbon Dioxide Anion Gap BUN Creatinine Est GFR ( Amer) Est GFR (Non-Af Amer) POC Glucose (mg/dL) 85 Random Glucose Calcium Phosphorus Magnesium Total Bilirubin AST ALT Alkaline Phosphatase Total Protein Albumin Globulin Albumin/Globulin Ratio Urine Color Yellow Urine Clarity Clear Urine pH 6.0 Ur Specific [place] 1.004 Urine Protein Negative Urine Glucose (UA) Normal Urine Ketones Negative Urine Blood 1+ H Urine Nitrate Negative Urine Bilirubin Negative Urine Urobilinogen Normal Ur Leukocyte Esterase Neg Urine WBC (Auto) 3 Urine RBC (Auto) < 1 Ur Squamous Epith Cells 6 H Urine Bacteria Rare
[2017-02-09] MEDS: Nystatin 100,000 Units/ml Oral Susp 5 ml UD PO SCH ×2 (17:37→22:00)
--- NOTE | 2017-02-09 18:49 | CP.PCM.PN ---
Subjective - Date & Time of Evaluation Date of Evaluation: 02/09/17 Time of Evaluation: 12:10 - Subjective Subjective: Ms. Dominguez was seen and examined today at bedside. She was in NAD. There were no acute events overnight. She continued to complain of a 6/10 in severity headache that was mostly on the right side and had a throbbing quality. Objective - Vital Signs/Intake and Output Vital Signs (last 24 hours): Temp Pulse Resp BP Pulse Ox 99.0 F 95 H 20 126/83 94 L 02/09/17 15:07 02/09/17 15:07 02/09/17 15:07 02/09/17 15:07 02/09/17 15:07 Intake and Output: 02/09/17 02/09/17 06:59 18:59 Intake Total 1590 640 Output Total 5 2 Balance 1585 638 - Medications Medications: Current Medications Acetaminophen (Tylenol 325mg Tab) 650 mg PO Q6 PRN PRN Reason: Fever >100.4 F Last Admin: 02/09/17 12:00 Dose: 650 mg Amlodipine Besylate (Norvasc) 10 mg PO DAILY [facility] Last Admin: 02/09/17 09:34 Dose: 10 mg Clonazepam (Klonopin) 0.5 mg PO BID [facility] Last Admin: 02/09/17 17:37 Dose: 0.5 mg Enoxaparin Sodium (Lovenox) 40 mg SC DAILY [facility] Last Admin: 02/09/17 09:35 Dose: 40 mg Escitalopram Oxalate (Lexapro) 5 mg PO DAILY [facility] Last Admin: 02/09/17 09:34 Dose: 5 mg Famotidine (Pepcid) 20 mg PO Q12 [facility] Last Admin: 02/09/17 09:34 Dose: 20 mg Hydromorphone HCl (Dilaudid) 1 mg IVP Q6H PRN PRN Reason: Pain, severe (8-10) Last Admin: 02/09/17 14:01 Dose: 1 mg Sodium Chloride (Sodium Chloride 0.9%) 1,000 mls @ 100 mls/hr IV .Q10H [facility] Last Admin: 02/09/17 09:33 Dose: 100 mls/hr Levetiracetam 500 mg/ Sodium (Chloride) 105 mls @ 420 mls/hr IVPB Q12H [facility] Last Admin: 02/09/17 14:00 Dose: 420 mls/hr Piperacillin Sod/Tazobactam Sod (Zosyn 3.375 Gm Iv Premix) 3.375 gm in 50 mls @ 100 mls/hr IVPB Q8H [facility] Last Admin: 02/09/17 14:51 Dose: 100 mls/hr Vancomycin HCl 1,000 mg/ (Sodium Chloride) 250 mls @ 166.6 mls/hr IVPB Q12H [facility] Last Admin: 02/09/17 14:51 Dose: 166.6 mls/hr Labetalol HCl (Trandate) 400 mg PO Q6 [facility] Last Admin: 02/09/17 17:37 Dose: 400 mg Lorazepam (Ativan) 2 mg IVP Q2H PRN PRN Reason: Anxiety Last Admin: 02/07/17 16:47 Dose: 2 mg Morphine Sulfate (Morphine) 4 mg IVP Q4H PRN PRN Reason: Pain, moderate (4-7) Last Admin: 02/09/17 17:34 Dose: 4 mg Nystatin (Nystatin Oral Susp) 5 ml PO QID [facility] Last Admin: 02/09/17 17:37 Dose: 5 ml Ondansetron HCl (Zofran Inj) 4 mg IVP Q6H PRN PRN Reason: Nausea/Vomiting Oxycodone/Acetaminophen (Percocet 5/325 Mg Tab) 1 tab PO Q4H PRN PRN Reason: Pain, Mild (1-3) Stop: 02/09/17 19:59 Saliva Substitute (First Magic Mouthwash) 10 ml PO Q4 PRN PRN Reason: Pain, moderate (4-7) Last Admin: 02/09/17 03:49 Dose: 10 ml - Labs Labs: 02/09/17 06:26 02/09/17 06:26 PT 14.7 SECONDS (9.7-12.2) H 02/09/17 06:26 INR 1.3 02/09/17 06:26 APTT 22 SECONDS (21-34) D 02/09/17 06:26 - Neurological Exam Neurological Exam: Awake, CN II-XII Intact, Normal Gait, Oriented x3, Reflexes Normal Neuro motor strength exam: Left Upper Extremity: 5, Right Upper Extremity: 5, Left Lower Extremity: 5, Right Lower Extremity: 5 - Psychiatric Exam Psychiatric exam: Normal Affect, Normal Mood Assessment and Plan (1) PRES (posterior reversible encephalopathy syndrome) Assessment & Plan: Continue Keppra at current dose. Repeat MRI of the brain without contrast tomorrow. Continue BP control. Avoid opiates if possible. Treat headache with magnesium oxide 400 mg BID. Status: Acute
[2017-02-10] MEDS: Morphine 4 MG/ML VIAL IVP PRN ×2 (00:26→08:01)
[2017-02-10] MEDS: levETIRAcetam 500 MG in Sodium Chloride 0.9% 100 ML IVPB SCH ×2 (03:14→16:55)
[2017-02-10] MEDS: HYDROmorphone 1 mg/ml ISec IVP PRN ×3 (03:44→16:57)
[2017-02-10] MEDS ORDERED: Sodium Chloride 0.9% 1,000 ML IV SCH (04:00)
[2017-02-10] MEDS: Piperacill/Tazo 3.375gm in Dex 3.375 GM/50 ML BAG IVPB SCH ×2 (05:04→12:54)
[2017-02-10 07:17] LABS: BASO % 0.3 % (0.0-2.0); EOS # 0.1 K/uL (0.0-0.7); EOS % 2.2 % (0.0-4.0); HEMATOCRIT 28.1 % (34.0-47.0); LYMPH # 0.7 K/uL (1.0-4.3); LYMPH % 11.1 % (20.0-40.0); MEAN CELL VOLUME 86.3 fL (81.0-99.0); MEAN CORPUSCULAR HGB CONC 33.5 g/dL (33.0-37.0); MEAN PLATELET VOLUME 8.4 fL (7.2-11.7); MONO # 0.7 K/uL (0.0-0.8); MONO % 11.1 % (0.0-10.0); RED CELL DISTRIBUTION WIDTH 13.5 % (11.5-14.5); WHITE BLOOD COUNT 6.7 K/uL (4.8-10.8)
[2017-02-10 07:45] LABS: CHLORIDE 99 mmol/L (98-107); POTASSIUM 3.1 mmol/L (3.6-5.2); SODIUM 132 mmol/L (132-148)
[2017-02-10 07:47] LABS: ALB/GLOB RATIO 0.8 (1.0-2.1); AST/SGOT 22 U/L (14-36); BILIRUBIN,DIRECT 0.5 mg/dL (0.0-0.4); BILIRUBIN,TOTAL 0.6 mg/dL (0.2-1.3); CARBON DIOXIDE 22 mmol/L (22-30); GFR AFRICAN-AMERICAN > 60
[2017-02-10 07:48] LABS: ALKALINE PHOSPHATASE 72 U/L (38-126); ALT/SGPT 36 U/L (9-52); BLOOD UREA NITROGEN < 2 mg/dL (7-17); CALCIUM 8.2 mg/dl (8.6-10.4); GLUCOSE,RANDOM 79 mg/dL (65-105)
--- NOTE | 2017-02-10 09:24 | CON ---
DATE: 02/09/2017 REQUESTING PHYSICIAN: Dr. Aguilar REASON FOR CONSULTATION: Pneumonia and recent onset of productive cough. Also, patient draining pur ulent material from intraabdominal drain placed a while ago, status post bariatric surgery, post intr a-abdominal drain. The patient is a 26-year-old unfortunate lady with a previous history of hypertension and obesity, wa s admitted at [facility] on 02/06/2017 with possible seizures. History dates back to 08/25/2016 when patient states she had bariatric surgery done by Dr. Desir, phone number [phone]. The pa jillian states she underwent gastric sleeve surgery which was complicated by leaks, which required furt her surgical interventions involving patch, gastrojejunostomy, esophagogastric stent and Sage drain placement x 3. The patient states she has been getting prolonged antibiotics for almost 44 day s at hospital and she was sent home. Four days ago, the patient states she had a seizure and was bro ught in by the family members to [facility]. As per Dr. Desir's statement, the patient had bee n taking narcotics frequently to manage pain and had suddenly stopped them abruptly and was possible in withdrawal of narcotics. The patient underwent a CT scan of the brain, which was consistent with patchy white matter hypodensities in the occipital, parietal regions, right more than left, suspiciou s for posterior reversible encephalopathic syndrome. Presently, patient is awake and able to answer questions and moving all her extremities. The patient also states she started with a cough about 2 d ays ago and chest x-ray showed persistent small left layer pleural effusion with associated consolida tion. Also, patient spiked a fever and infectious disease consultation was requested by PMD for furt her evaluation. The patient does admit to some abdominal pain and discomfort. She has dressings in place with an ostomy tube in place draining purulent material. The patient also is coughing thick ye llowish phlegm as stated by her and it is difficult for her to expectorate. She states that she had initially 3 Sage drains placed. However, 2 of them have become displaced. She is unsure of how the y got displaced, presumes that it occurred during the seizure. CT of the abdomen and pelvis with IV contrast was also performed on admission, which showed no bowel obstruction, only post-surgical coleman es consistent with prior bariatric surgery. A surgical drain was also seen in the left upper quadran t. The patient denies any nausea or vomiting at present, denies any diarrhea. PAST MEDICAL HISTORY: As above, hypertension and obesity and status post bariatric gastric sleeve ramsey rgery in 08/2016 complicated by multiple revisions, at least 6 times as per patient. Also, presently has an intraabdominal drainage tube draining purulent material. PAST SURGICAL HISTORY: As above. MEDICATIONS: As reviewed. The patient is presently on multiple psych medications, also blood pressu re pills including labetalol 400 mg p.o. q. 6 hourly, Ativan 2 mg IV every 2 hours, morphine sulfate 4 mg IV q. 4, Zofran 4 mg q. 6 IV, oxycodone, acetaminophen, Percocet 5/325 one tablet p.o. q. 4 hour ly p.r.n. The patient also on Dilaudid 1 mg IV q. 6, Pepcid 20 mg p.o. q. 12, Lovenox 40 mg subQ [place] y, clonazepam 0.5 mg p.o. b.i.d., Norvasc 10 mg p.o. daily and Tylenol 325 mg tablet 2 tablets p.o. q . 6 hourly p.r.n. for headache as reported. SOCIAL HISTORY: The patient denies ethanol use or tobacco use or any substance abuse. FAMILY HISTORY: Noncontributory. REVIEW OF SYSTEMS: RESPIRATORY: Complains of cough with productive expectoration. Denies any hemoptysis or hematemesis . Denies any chest pains. CARDIOVASCULAR: Denies any chest pains, no palpitations, but complains of dyspnea on exertion. GASTROINTESTINAL: As reported above. Presently denies any diarrhea or obstipation. Complains of ab dominal pain, generalized especially left upper quadrant with a drain in place. GENITOURINARY: Unremarkable. CENTRAL NERVOUS SYSTEM: No complains of headaches, but denies any nausea or vomiting. Rest of the review of systems is as above. ALLERGIES: No known allergies. PHYSICAL EXAMINATION: GENERAL: The patient is awake, alert, not in any acute distress. VITAL SIGNS: Temperature 99.0 presently, but had 101.5 earlier, blood pressure 126/83, respirations 20, pulse ox 94%. HEENT: Pupils equal, reactive to light and accommodation. Extraocular movements full. Fundus negat marko. Sclerae nonicteric. Conjunctivae normal. JVP not elevated. NECK: Appears to be supple. LUNGS: Bilateral rhonchi with diminished breath sounds at the left base. CARDIOVASCULAR: S1, S2, no murmur or gallop. ABDOMEN: Dressing in place. Ostomy tube draining purulent material. Generalized discomfort and ten derness. Bowel sounds hypoactive, present. EXTREMITIES: 1+ edema in lower extremities. No calf tenderness. Peripheral pulses are normal. CENTRAL NERVOUS SYSTEM: Awake, alert, moves all extremities. LABORATORY DATA: WBCs 7.1, H and H of 9.8 and 29.2, platelets 203. Creatinine 0.4, BUN of 3, potass ium 3.1. Liver function tests normal. Albumin is 2.8. Urinalysis is negative. Blood cultures 02/06 negative for 48 hours. MRSA screen is negative. Abdominal wound culture positive for gram-pos itive cocci. Chest x-ray 02/09/2017 shows left PICC line in place. Esophagogastric stent in place. Small left lay ering pleural effusion with associated consolidation and cardiomegaly. On 02/06, CT of the abdomen an d pelvis with IV contrast shows no bowel obstruction. Postoperative findings consistent with prior b ariatric surgery. Surgical drain left upper quadrant. CT of the head on admission without contrast showed patchy white matter hypodensities in the occipital parietal regions, right more than left, anju picious for posterior reversible encephalopathy syndrome. IMPRESSION: 1. New fever with new left lower lobe pneumonia, probably aspiration versus community-acquired pneum onia versus hospital-acquired pneumonia. 2. Status post bariatric surgery 08/25/2016 with several revisions x 6 as per patient, intraabdomina l drainage, questionable fistula. 3. Status post seizures, accelerated hypertension. 4. Posterior reversible encephalopathic syndrome. 5. Narcotic withdrawal. PLAN: Elizalde cultures. Abdominal wound culture drainage pending. UA, urine cultures, sed rate, C-reac tive proteins. Start IV Zosyn 3.375 IV q. 8 hourly for broad gram-negative and gram-positive coverag e. Will add IV vancomycin 1 g q. 12 hourly for Staph and strep coverage for now. Follow up vancomyc in trough level on the fourth dose and keep it between 10 and 20. Follow up renal functions closely. Neurology on board. Discussions with surgery in progress for possible transfer to [facility] as per Dr. Desir, the patient's bariatric surgeon. Case discussed with the staff and PM Bridger. Will follow patient while in the hospital and make further recommendations as cultures sonia cordoba Will follow up with you. Thank you very much for allowing me to participate in the care of your patient. Ishan Rodríguez MD cc: [id number] TT: 02/10/2017 09:24:18 Confirmation # [id number] Dictation # [id number]
[2017-02-10] MEDS: Enoxaparin 40 mg Syringe SC SCH (10:23)
[2017-02-10] MEDS: Mag&Al/Simet/Diphen/Lido 237 ML KIT PO PRN (10:23)
[2017-02-10] MEDS: Nystatin 100,000 Units/ml Oral Susp 5 ml UD PO SCH ×3 (10:23→17:45)
--- NOTE | 2017-02-10 12:46 | CP.PCM.PN ---
Subjective - Date & Time of Evaluation Date of Evaluation: 02/10/17 Time of Evaluation: 12:45 Objective - Vital Signs/Intake and Output Vital Signs (last 24 hours): Temp Pulse Resp BP Pulse Ox 99.7 F H 96 H 18 125/80 94 L 02/10/17 07:37 02/10/17 08:00 02/10/17 07:00 02/10/17 07:00 02/10/17 07:00 Intake and Output: 02/10/17 02/10/17 06:59 18:59 Intake Total 1380 Output Total 510 Balance 870 - Medications Medications: Current Medications Acetaminophen (Tylenol 325mg Tab) 650 mg PO Q6 PRN PRN Reason: Fever >100.4 F Last Admin: 02/10/17 06:37 Dose: 650 mg Amlodipine Besylate (Norvasc) 10 mg PO DAILY [facility] Last Admin: 02/10/17 10:24 Dose: 10 mg Clonazepam (Klonopin) 0.5 mg PO BID [facility] Last Admin: 02/10/17 10:24 Dose: 0.5 mg Enoxaparin Sodium (Lovenox) 40 mg SC DAILY [facility] Last Admin: 02/10/17 10:23 Dose: 40 mg Escitalopram Oxalate (Lexapro) 5 mg PO DAILY [facility] Last Admin: 02/10/17 10:24 Dose: 5 mg Famotidine (Pepcid) 20 mg PO Q12 [facility] Last Admin: 02/10/17 10:24 Dose: 20 mg Hydromorphone HCl (Dilaudid) 1 mg IVP Q6H PRN PRN Reason: Pain, severe (8-10) Last Admin: 02/10/17 10:22 Dose: 1 mg Levetiracetam 500 mg/ Sodium (Chloride) 105 mls @ 420 mls/hr IVPB Q12H [facility] Last Admin: 02/10/17 03:14 Dose: 420 mls/hr Piperacillin Sod/Tazobactam Sod (Zosyn 3.375 Gm Iv Premix) 3.375 gm in 50 mls @ 100 mls/hr IVPB Q8H [facility] Last Admin: 02/10/17 05:04 Dose: 100 mls/hr Vancomycin HCl 1,000 mg/ (Sodium Chloride) 250 mls @ 166.6 mls/hr IVPB Q12H [facility] Last Admin: 02/10/17 01:48 Dose: 166.6 mls/hr Sodium Chloride (Sodium Chloride 0.9%) 1,000 mls @ 100 mls/hr IV .Q10H [facility] Labetalol HCl (Trandate) 400 mg PO Q6 [facility] Last Admin: 02/10/17 06:15 Dose: 400 mg Lorazepam (Ativan) 2 mg IVP Q2H PRN PRN Reason: Anxiety Last Admin: 02/07/17 16:47 Dose: 2 mg Morphine Sulfate (Morphine) 4 mg IVP Q4H PRN PRN Reason: Pain, moderate (4-7) Last Admin: 02/10/17 08:01 Dose: 4 mg Nystatin (Nystatin Oral Susp) 5 ml PO QID [facility] Last Admin: 02/10/17 10:23 Dose: 5 ml Ondansetron HCl (Zofran Inj) 4 mg IVP Q6H PRN PRN Reason: Nausea/Vomiting Saliva Substitute (First Magic Mouthwash) 10 ml PO Q4 PRN PRN Reason: Pain, moderate (4-7) Last Admin: 02/10/17 10:23 Dose: 10 ml - Labs Labs: 02/10/17 07:03 02/10/17 07:03 PT 14.7 SECONDS (9.7-12.2) H 02/09/17 06:26 INR 1.3 02/09/17 06:26 APTT 22 SECONDS (21-34) D 02/09/17 06:26
--- NOTE | 2017-02-10 13:22 | CP.PCM.DIS ---
Provider - Provider Date of Admission: 02/06/17 19:38 Attending physician: Jayne Aguilar MD Time Spent in preparation of Discharge (in minutes): 35 Hospital Course - Lab Results Lab Results: Micro Results 02/10/17 Unknown Sputum Gram Stain - Final 02/09/17 10:15 Blood Blood Culture - Preliminary NO GROWTH AFTER 24 HOURS 02/08/17 10:00 Abdomen Gram Stain - Final 02/08/17 10:00 Abdomen Wound Culture - Final Staphylococcus Epidermidis 02/06/17 20:00 Blood Blood Culture - Preliminary NO GROWTH AFTER 3 DAYS 02/06/17 20:00 Blood Blood Culture - Preliminary NO GROWTH AFTER 3 DAYS 02/08/17 17:48 Nose MRSA Culture - Final MRSA NOT DETECTED 02/06/17 Unknown Naris MRSA Culture (Admit) - Final MRSA NOT DETECTED Most Recent Lab Values WBC 6.7 K/uL (4.8-10.8) 02/10/17 07:03 RBC 3.26 Mil/uL (3.80-5.20) L 02/10/17 07:03 Hgb 9.4 g/dL (11.0-16.0) L 02/10/17 07:03 Hct 28.1 % (34.0-47.0) L 02/10/17 07:03 MCV 86.3 fL (81.0-99.0) 02/10/17 07:03 MCH 29.0 pg (27.0-31.0) 02/10/17 07:03 MCHC 33.5 g/dL (33.0-37.0) 02/10/17 07:03 RDW 13.5 % (11.5-14.5) 02/10/17 07:03 Plt Count 240 K/uL (130-400) 02/10/17 07:03 MPV 8.4 fL (7.2-11.7) 02/10/17 07:03 Neut % (Auto) 75.3 % (50.0-75.0) H 02/10/17 07:03 Lymph % (Auto) 11.1 % (20.0-40.0) L 02/10/17 07:03 [place] % (Auto) 11.1 % (0.0-10.0) H 02/10/17 07:03 Eos % (Auto) 2.2 % (0.0-4.0) 02/10/17 07:03 Baso % (Auto) 0.3 % (0.0-2.0) 02/10/17 07:03 Neut # 5.0 K/uL (1.8-7.0) 02/10/17 07:03 Lymph # 0.7 K/uL (1.0-4.3) L 02/10/17 07:03 [place] # 0.7 K/uL (0.0-0.8) 02/10/17 07:03 Eos # 0.1 K/uL (0.0-0.7) 02/10/17 07:03 Baso # 0.0 K/uL (0.0-0.2) 02/10/17 07:03 Neutrophils % (Manual) 96 % (50-75) H 02/06/17 15:36 Lymphocytes % (Manual) 2 % (20-40) L 02/06/17 15:36 Monocytes % (Manual) 2 % (0-10) 02/06/17 15:36 Platelet Estimate Normal (NORMAL) 02/06/17 15:36 RBC Morphology Normal 02/06/17 15:36 ESR 65 mm/hr (0-20) H 02/10/17 07:03 PT 14.7 SECONDS (9.7-12.2) H 02/09/17 06:26 INR 1.3 02/09/17 06:26 APTT 22 SECONDS (21-34) D 02/09/17 06:26 pO2 42 mm/Hg (30-55) 02/06/17 20:19 VBG pH 7.41 (7.32-7.43) 02/06/17 20:19 VBG pCO2 39 mmHg (40-60) L 02/06/17 20:19 VBG HCO3 24.5 mmol/L 02/06/17 20:19 VBG Total CO2 25.9 mmol/L (22-28) 02/06/17 20:19 VBG O2 Sat (Calc) 80.8 % (40-65) H 02/06/17 20:19 VBG Base Excess 0.1 mmol/L (0.0-2.0) 02/06/17 20:19 VBG Potassium 3.4 mmol/L (3.6-5.2) L 02/06/17 20:19 Sodium 137.0 mmol/l (132-148) 02/06/17 20:19 Chloride 104.0 mmol/L (98-107) 02/06/17 20:19 Glucose 110 mg/dl (65-105) H 02/06/17 20:19 Lactate 1.4 mmol/L (0.7-2.1) 02/06/17 20:19 Crit Value Called To Dr santoro 02/06/17 16:19 Crit Value Called By Robb mccann construction foreman 02/06/17 16:19 Crit Value Read Back Y 02/06/17 16:19 Blood Gas Notified Time 1625 02/06/17 16:19 Sodium 132 mmol/L (132-148) 02/10/17 07:03 Potassium 3.1 mmol/L (3.6-5.2) L 02/10/17 07:03 Chloride 99 mmol/L (98-107) 02/10/17 07:03 Carbon Dioxide 22 mmol/L (22-30) 02/10/17 07:03 Anion Gap 13 (10-20) 02/10/17 07:03 BUN < 2 mg/dL (7-17) L 02/10/17 07:03 Creatinine 0.5 MG/DL (0.7-1.2) L 02/10/17 07:03 Est GFR ( Amer) > 60 02/10/17 07:03 Est GFR (Non-Af Amer) > 60 02/10/17 07:03 POC Glucose (mg/dL) 82 mg/dL (65-110) 02/10/17 11:20 Random Glucose 79 mg/dL (65-105) 02/10/17 07:03 Calcium 8.2 mg/dl (8.6-10.4) L 02/10/17 07:03 Phosphorus 3.5 mg/dL (2.5-4.5) 02/09/17 06:26 Magnesium 1.5 mg/dL (1.6-2.3) L 02/09/17 06:26 Total Bilirubin 0.6 mg/dL (0.2-1.3) 02/10/17 07:03 Direct Bilirubin 0.5 mg/dL (0.0-0.4) H 02/10/17 07:03 AST 22 U/L (14-36) 02/10/17 07:03 ALT 36 U/L (9-52) 02/10/17 07:03 Alkaline Phosphatase 72 U/L (38-126) 02/10/17 07:03 Total Creatine Kinase 29 U/L (30-135) L 02/07/17 06:26 CK-MB (Mass) < 0.22 ng/mL (0.0-3.38) 02/07/17 06:26 Troponin I < 0.0120 ng/mL (0.00-0.120) 02/07/17 06:26 C-React Prot High Sens > 15.00 mg/L (1.00-3.00) H 02/10/17 07:03 Total Protein 6.0 g/dL (6.3-8.3) L 02/10/17 07:03 Albumin 2.7 g/dL (3.5-5.0) L 02/10/17 07:03 Globulin 3.3 gm/dL (2.2-3.9) 02/10/17 07:03 Albumin/Globulin Ratio 0.8 (1.0-2.1) L 02/10/17 07:03 Lipase 289 U/L (23-300) 02/06/17 15:36 TSH 3rd Generation 1.51 mIU/L (0.46-4.68) 02/07/17 06:26 Venous Blood Potassium 3.4 mmol/L (3.6-5.2) L 02/06/17 20:19 Urine Color Yellow (YELLOW) 02/09/17 15:06 Urine Clarity Clear (Clear) 02/09/17 15:06 Urine pH 6.0 (5.0-8.0) 02/09/17 15:06 Ur Specific [place] 1.004 (1.003-1.030) 02/09/17 15:06 Urine Protein Negative mg/dL (NEGATIVE) 02/09/17 15:06 Urine Glucose (UA) Normal mg/dL (Normal) 02/09/17 15:06 Urine Ketones Negative mg/dL (NEGATIVE) 02/09/17 15:06 Urine Blood 1+ (NEGATIVE) H 02/09/17 15:06 Urine Nitrate Negative (NEGATIVE) 02/09/17 15:06 Urine Bilirubin Negative (NEGATIVE) 02/09/17 15:06 Urine Urobilinogen Normal mg/dL (0.2-1.0) 02/09/17 15:06 Ur Leukocyte Esterase Neg [place]/uL (Negative) 02/09/17 15:06 Urine WBC (Auto) 3 /hpf (0-5) 02/09/17 15:06 Urine RBC (Auto) < 1 /hpf (0-3) 02/09/17 15:06 Ur Squamous Epith Cells 6 /hpf (0-5) H 02/09/17 15:06 Urine Bacteria Rare (<OCC) 02/09/17 15:06 Hyaline Casts 0-2 /lpf (0-2) 02/06/17 15:35 Urine HCG, Qual Negative (NEGATIVE) 02/06/17 15:35 Urine Opiates Screen Negative (NEGATIVE) 02/06/17 15:11 Urine Methadone Screen Negative (NEGATIVE) 02/06/17 15:11 Ur Barbiturates Screen Negative (NEGATIVE) 02/06/17 15:11 Ur Phencyclidine Scrn Negative (NEGATIVE) 02/06/17 15:11 Ur Amphetamines Screen Negative (NEGATIVE) 02/06/17 15:11 U Benzodiazepines Scrn Negative (NEGATIVE) 02/06/17 15:11 U Oth Cocaine Metabols Negative (NEGATIVE) 02/06/17 15:11 U Cannabinoids Screen Negative (NEGATIVE) 02/06/17 15:11 - Hospital Course Hospital Course: 26F HTN, gastric sleeve 08/19, complicated by abscesses and has had multiple interventions, [address], sees surgeon DR. MATTHEW at [facility], last visit as per family was last week. Pt has been on longstanding opiods (percocet, oxycontin) and benzo (xanax). After last visit, pt has not taken any more of these meds. Yesterday, as per mother, pt had an apparent period of AMS lasting approx 20min Pt then came to. denies tongue biting, denies urinary / fecal incontinence. IN ER PT HAD BP OF 180/[address] HEAD . PT WAS STABILIZED WITH IV LABETOLOL AND ATIVAN PAST HIST. HTN /GASTRIC SLEEVE SURGERY 08/19 AND MULTIPLE REVISION FOR LEAKAGES WITH 3 AD TUBES PT WAS GIVEN KEPPRA AND PROCARDIA . NO FURTHER SEIZURES . MRI SHOWED PRES SYNDROME , PAROXYSMAL ENCEPHALOPATHY . 48 HRS LATER PT HAD TEMP OF 101 AND DRAINAGE WAS SHOWING PURULENT DISCHARGE THIS WAS D/W PT'S SURGEON DR. MATTHEW, IN [facility]. HE DECIDED TO TRANSFER PT TO [facility] PT IN STABLE CONDITION WAS TRANSFERRED TO [facility] FOR FURTHER CARE OF ABD. INFECTION REPEAT MRI NEXT WEEK Discharge Exam - Head Exam Head Exam: ATRAUMATIC, NORMAL INSPECTION, NORMOCEPHALIC Discharge Plan - Follow Up Plan Condition: FAIR Disposition: HOME/ ROUTINE
--- NOTE | 2017-02-10 14:43 | CP.PCM.PN ---
Subjective - Date & Time of Evaluation Date of Evaluation: 02/10/17 Time of Evaluation: 14:40 - Subjective Subjective: Ms. Dominguez was seen and examined today at bedside. She complained of abdominal and back pain. She did not have a significant headache and denied visual changes, dizziness, weakness or sensory changes. Objective - Vital Signs/Intake and Output Vital Signs (last 24 hours): Temp Pulse Resp BP Pulse Ox 99.7 F H 96 H 18 125/80 94 L 02/10/17 07:37 02/10/17 08:00 02/10/17 07:00 02/10/17 07:00 02/10/17 07:00 Intake and Output: 02/10/17 02/10/17 06:59 18:59 Intake Total 1380 Output Total 510 Balance 870 - Medications Medications: Current Medications Acetaminophen (Tylenol 325mg Tab) 650 mg PO Q6 PRN PRN Reason: Fever >100.4 F Last Admin: 02/10/17 06:37 Dose: 650 mg Amlodipine Besylate (Norvasc) 10 mg PO DAILY [facility] Last Admin: 02/10/17 10:24 Dose: 10 mg Clonazepam (Klonopin) 0.5 mg PO BID [facility] Last Admin: 02/10/17 10:24 Dose: 0.5 mg Enoxaparin Sodium (Lovenox) 40 mg SC DAILY [facility] Last Admin: 02/10/17 10:23 Dose: 40 mg Escitalopram Oxalate (Lexapro) 5 mg PO DAILY [facility] Last Admin: 02/10/17 10:24 Dose: 5 mg Famotidine (Pepcid) 20 mg PO Q12 [facility] Last Admin: 02/10/17 10:24 Dose: 20 mg Hydromorphone HCl (Dilaudid) 1 mg IVP Q6H PRN PRN Reason: Pain, severe (8-10) Last Admin: 02/10/17 10:22 Dose: 1 mg Levetiracetam 500 mg/ Sodium (Chloride) 105 mls @ 420 mls/hr IVPB Q12H [facility] Last Admin: 02/10/17 03:14 Dose: 420 mls/hr Piperacillin Sod/Tazobactam Sod (Zosyn 3.375 Gm Iv Premix) 3.375 gm in 50 mls @ 100 mls/hr IVPB Q8H [facility] Last Admin: 02/10/17 12:54 Dose: 100 mls/hr Vancomycin HCl 1,000 mg/ (Sodium Chloride) 250 mls @ 166.6 mls/hr IVPB Q12H [facility] Last Admin: 02/10/17 14:00 Dose: 166.6 mls/hr Sodium Chloride (Sodium Chloride 0.9%) 1,000 mls @ 100 mls/hr IV .Q10H [facility] Last Admin: 02/10/17 12:55 Dose: 100 mls/hr Labetalol HCl (Trandate) 400 mg PO Q6 [facility] Last Admin: 02/10/17 12:55 Dose: 400 mg Lorazepam (Ativan) 2 mg IVP Q2H PRN PRN Reason: Anxiety Last Admin: 02/07/17 16:47 Dose: 2 mg Morphine Sulfate (Morphine) 4 mg IVP Q4H PRN PRN Reason: Pain, moderate (4-7) Last Admin: 02/10/17 08:01 Dose: 4 mg Nystatin (Nystatin Oral Susp) 5 ml PO QID [facility] Last Admin: 02/10/17 10:23 Dose: 5 ml Ondansetron HCl (Zofran Inj) 4 mg IVP Q6H PRN PRN Reason: Nausea/Vomiting Saliva Substitute (First Magic Mouthwash) 10 ml PO Q4 PRN PRN Reason: Pain, moderate (4-7) Last Admin: 02/10/17 10:23 Dose: 10 ml - Labs Labs: 02/10/17 07:03 02/10/17 07:03 PT 14.7 SECONDS (9.7-12.2) H 02/09/17 06:26 INR 1.3 02/09/17 06:26 APTT 22 SECONDS (21-34) D 02/09/17 06:26 - Neck Exam Neck Exam: Full ROM, Normal Inspection. absent: Lymphadenopathy - Respiratory Exam Respiratory Exam: Clear to Ausculation Bilateral, NORMAL BREATHING PATTERN - Cardiovascular Exam Cardiovascular Exam: REGULAR RHYTHM, +S1, +S2. absent: Murmur - GI/Abdominal Exam GI & Abdominal Exam: absent: Tenderness - Neurological Exam Neurological Exam: Alert, Awake, CN II-XII Intact Neuro motor strength exam: Left Upper Extremity: 5, Right Upper Extremity: 5, Left Lower Extremity: 5, Right Lower Extremity: 5 - Psychiatric Exam Psychiatric exam: Normal Affect, Normal Mood Assessment and Plan (1) PRES (posterior reversible encephalopathy syndrome) Assessment & Plan: Continue BP control. Repeat MRI of the brain today. Continue Keppra and obtain EEG as outpatient with neurology follow-up. Status: Acute
[2017-02-10 15:33] VITALS: PULSE 112; RESP 20; O2SAT 95
--- NOTE | 2017-02-10 17:05 | MRI ---
PROCEDURE: MRI BRAIN WITHOUT CONTRAST HISTORY: PRES COMPARISON: 02/07/2017 TECHNIQUE: Multiplanar, multisequence MR images of the brain were obtained without intravenous contrast enhancement. FINDINGS: HEMORRHAGE: None DWI: No evidence of an acute or early subacute infarction. BRAIN PARENCHYMA: There is redemonstration of multifocal curvilinear T2/FLAIR hyperintense signal abnormality in the posterior frontal and posterior parietal subcortical white matter, slightly improved since the prior examination particularly in the posterior frontal and left posterior parietal subcortical white matter. There is no mass, mass effect or abnormal extra-axial fluid collection. The midline sagittal structures are normal. VENTRICLES: The ventricles are normal in size, shape and configuration. CRANIUM: There is normal bone marrow signal pattern. ORBITS: Grossly unremarkable. PARANASAL SINUSES/MASTOIDS: There are small retention cysts/ polyps in the maxillary sinuses and mild mucosal thickening in the paranasal sinuses. VASCULAR SYSTEM: There are normal signal voids in the larger intracranial arteries. OTHER FINDINGS: None. IMPRESSION: Interval mild improvement in bilateral posterior frontal and left posterior parietal subcortical signal abnormality, and persistent right posterior parietal subcortical white matter signal abnormality presumably related to posterior reversible encephalopathy syndrome. No evidence of abnormal enhancement, hydrocephalus or acute infarction.
[2017-02-10 18:35] VITALS: BP 121/81; TEMP 100
== END 2017-02-10 22:40 | disposition short-term general hospital (02) | DRG 533 ==
LOC: C.ER 14:16 → C.9I 19:38 → C.6T 02-08 18:20
PROVIDERS: ADMIT Internal Medicine Cardiovascular Disease; ATTEND Internal Medicine Cardiovascular Disease
DX: I67.83 Posterior reversible encephalopathy syndrome (principal); I16.0 Hypertensive urgency; F13.239 Sedative, hypnotic or anxiolytic dependence with withdrawal, unspecified; J18.9 Pneumonia, unspecified organism; J90 Pleural effusion, not elsewhere classified; R56.9 Unspecified convulsions; F32.1 Major depressive disorder, single episode, moderate; I10 Essential (primary) hypertension; F41.0 Panic disorder [episodic paroxysmal anxiety]; F41.1 Generalized anxiety disorder; Z98.84 Bariatric surgery status; T81.9XXD Unspecified complication of procedure, subsequent encounter

== ENCOUNTER 2018-01-30 19:13 | Emergency (ER) | payer MEDICAID ==
[2018-01-30 19:13] VITALS: BMI 45.3
--- NOTE | 2018-01-30 19:30 | C.PDOC ---
History Of Present Illness Patient presents tot he ER with a complaint of intermittent, dull, crampy, nonradiating suprapubic pain for the past 5 days. Patient states today the pain began early in the morning and has not stopped since. Denies urinary symptoms, fever, chills, nausea, or vomiting. Patient has a Hx of bariatric surgery 2 years ago. Time Seen by Provider: 01/30/18 19:30 Chief Complaint (Nursing): Abdominal Pain History Per: Patient History/Exam Limitations: no limitations Onset/Duration Of Symptoms: Days, Intermittent Episodes Current Symptoms Are (Timing): Still Present Severity: Moderate Pain Scale Rating Of: 4 Location Of Pain/Discomfort: Suprapubic Radiation Of Pain To:: None Quality Of Discomfort: Dull, Cramping Associated Symptoms: denies: Fever, Chills, Nausea, Vomiting, Urinary Symptoms Exacerbating Factors: None Alleviating Factors: None Recent travel outside of the [place]: No Additional History Per: Patient Abnormal Vaginal Bleeding: No Past Medical History Reviewed: Historical Data, Nursing Documentation, Vital Signs Vital Signs: Last Vital Signs Temp 98.3 F 01/30/18 19:23 Pulse 71 01/30/18 19:23 Resp 20 01/30/18 19:23 BP 135/98 H 01/30/18 19:23 Pulse Ox 100 01/30/18 19:46 - Medical History PMH: HTN - [facility] Procedures INSERTION OF INFUSION DEV INTO R BASILIC VEIN, PERC APPROACH (09/08/16) MANUAL ASSIST DELIV NEC (05/14/15) REPAIR OB LACERATION NEC (05/14/15) Family History: States: No Known Family Hx - Social History Hx Tobacco Use: No Hx Alcohol Use: No Hx Substance Use: No - Immunization History Hx Tetanus Toxoid Vaccination: No Hx Influenza Vaccination: No Hx Pneumococcal Vaccination: No Review Of Systems Constitutional: Negative for: Fever, Chills Respiratory: Negative for: Cough Gastrointestinal: Positive for: Abdominal Pain. Negative for: Nausea, Vomiting Genitourinary: Negative for: Dysuria, Frequency, Hematuria Physical Exam - Physical Exam Appears: Non-toxic Skin: Warm, Dry Head: Normacephalic Oral Mucosa: Moist Neck: Supple Chest: Symmetrical, No Tenderness Cardiovascular: Rhythm Regular Respiratory: No Rales, No Rhonchi, No Wheezing Gastrointestinal/Abdominal: Soft, Tenderness (Suprapubic), Distention, No Guarding, No Rebound, Other (Tympanic to percussion) Back: No CVA Tenderness Extremity: Normal ROM Extremity: Bilateral: Atraumatic Pulses: Left Dorsalis Pedis: Normal, Right Dorsalis Pedis: Normal Neurological/Psych: Oriented x3 Gait: Steady ED Course And Treatment - Laboratory Results Result Diagrams: 01/30/18 19:42 01/30/18 19:42 O2 Sat by Pulse Oximetry: 100 (Room air) Pulse Ox Interpretation: Normal Progress Note: Blood work and urinalysis ordered. IV fluids administered. Reevaluation Time: 22:46 Reassessment Condition: Improved Disposition Counseled Patient/Family Regarding: Studies Performed, Diagnosis, Need For Followup - Disposition Referrals: [facility] [Outside] [facility] [Outside] Disposition: HOME/ ROUTINE Disposition Time: 19:30 Condition: FAIR Additional Instructions: Please return if symptoms recur Prescriptions: Nitrofurantoin Macrocrystals [Macrobid] 1 cap PO BID #14 cap traMADol [Ultram] 50 mg PO QID PRN #20 tab PRN Reason: Pain, Severe (8-10) Instructions: Urinary Tract Infection, Adult (DC), Intrauterine Devices (IUD) Forms: charity: water (Sinhala) - Clinical Impression Clinical Impression: Abdominal pain, UTI (urinary tract infection), Malpositioned intrauterine device (IUD) - Scribe Statement The provider has reviewed the documentation as recorded by the Scribe Tan Aguilar All medical record entries made by the Scribe were at my direction and personally dictated by me. I have reviewed the chart and agree that the record accurately reflects my personal performance of the history, physical exam, medical decision making, and the department course for this patient. I have also personally directed, reviewed, and agree with the discharge instructions and disposition.
[2018-01-30] MEDS ORDERED: Sodium Chloride 0.9% 1,000 ML IV ONE (19:31)
[2018-01-30 19:46] LABS: SQUAMOUS EPITHIAL 16 /hpf (0-5); URINE BACTERIA FEW (<OCC); URINE BILIRUBIN NEGATIVE (NEGATIVE); URINE BLOOD NEGATIVE (NEGATIVE); URINE CLARITY Hazy (Clear); URINE COLOR Yellow (YELLOW); URINE GLUCOSE (UA) NORMAL (Normal); URINE PROTEIN 1+ mg/dL (NEGATIVE)
[2018-01-30 19:46] LABS: BASO % 0.2 % (0.0-2.0); EOS # 0.2 K/uL (0.0-0.7); HEMOGLOBIN 8.6 g/dL (11.0-16.0); LYMPH # 2.1 K/uL (1.0-4.3); LYMPH % 33.7 % (20.0-40.0); MEAN CELL VOLUME 64.8 fL (81.0-99.0); MEAN CORPUSCULAR HEMOGLOBIN 20.5 pg (27.0-31.0); MEAN CORPUSCULAR HGB CONC 31.6 g/dL (33.0-37.0); MEAN PLATELET VOLUME 7.5 fL (7.2-11.7); MONO # 0.6 K/uL (0.0-0.8); NEUT # 3.4 K/uL (1.8-7.0); NEUT % 54.1 % (50.0-75.0); RBC 4.18 Mil/uL (3.80-5.20); RED CELL DISTRIBUTION WIDTH 16.9 % (11.5-14.5); WHITE BLOOD COUNT 6.4 K/uL (4.8-10.8)
[2018-01-30 19:49] LABS: HCG,QUALITATIVE URINE NEGATIVE (NEGATIVE); URINE LEUKOCYTE ESTERASE 2+ Leu/uL (Negative)
[2018-01-30 19:55] LABS: INR 1.1; PROTHROMBIN TIME 11.7 SECONDS (9.7-12.2)
[2018-01-30 19:58] LABS: ALB/GLOB RATIO 1.1 (1.0-2.1); ALBUMIN 4.4 g/dL (3.5-5.0); ALT/SGPT 22 U/L (9-52); BLOOD UREA NITROGEN 20 mg/dL (7-17); CALCIUM 9.4 mg/dl (8.6-10.4); GFR AFRICAN-AMERICAN > 60; GFR NON-AFRICAN AMERICAN > 60; LIPASE 96 U/L (23-300)
[2018-01-30 20:07] LABS: AST/SGOT 23 U/L (14-36)
[2018-01-30] MEDS ORDERED: Sodium Chloride 0.9% 1,000 ML ONE (20:15)
[2018-01-30] MEDS ORDERED: Piperacillin/Tazobact 3.375 gm 100 ML IVPB STA (20:21)
[2018-01-30] MEDS ORDERED: Piperacillin/Tazobact 3.375 gm 100 ML IVPB ONE (20:36)
[2018-01-30] MEDS ORDERED: Iodixanol 320 MG/ML 100 ML BOTTLE IV ONE (20:40)
--- NOTE | 2018-01-30 22:25 | CT ---
EXAM: CT Abdomen and Pelvis With Intravenous Contrast EXAM DATE/TIME: 01/30/2018 8:20 PM CLINICAL HISTORY: 27 years old, female; Pain; Abdominal pain; Flank; Lower; Additional info: Suprapubic pain TECHNIQUE: Axial computed tomography images of the abdomen and pelvis with intravenous contrast. All CT scans at this facility use one or more dose reduction techniques, viz.: automated exposure control; ma/kV adjustment per patient size (including targeted exams where dose is matched to indication; i.e. head); or iterative reconstruction technique. Coronal and sagittal reformatted images were created and reviewed. CONTRAST: 100 mL of visipaque 320 administered intravenously. COMPARISON: CT - ABD PELVIS IV CONTRAST ONLY 2017-02-06 17:51 FINDINGS: Lung bases: Heart size is normal. There is minimal patchy airspace disease in the right lower lobe. Esophageal stent has been removed. Surgical drain has been removed. There continues to be opacity at the left base adjacent to the gastroesophageal junction containing a small amount of air suggesting diaphragmatic hernia. ABDOMEN: Liver: Geographic low-attenuation region in the dome of the liver on the right suggest focal fatty infiltration. There is periportal edema. Gallbladder and bile ducts: unremarkable Pancreas: unremarkable Spleen: unremarkable Adrenals: unremarkable Kidneys and ureters: unremarkable Stomach and bowel: Stomach is incompletely distended with fluid and air. There are postsurgical changes about the stomach. There is a small hiatal/diaphragmatic hernia. Rotation is normal. There are mildly dilated small bowel loops in the left upper quadrant with air-fluid levels. There is an enteral anastomosis in the left upper quadrant. Mid small bowel is only mildly distended with fluid and air. Terminal ileum is decompressed. Appendix is unremarkable. There is moderate stool and air throughout the colon. PELVIS: Appendix: See stomach and bowel Bladder: unremarkable Reproductive: Uterus is anteflexed. There is an IUD in the uterus. Device is in the lower uterine segment and cervix. Adnexa are unremarkable. ABDOMEN and PELVIS: Intraperitoneal space: There is no free air or free fluid. Bones/joints: There are no acute osseous abnormalities. Soft tissues: There is a small fat containing umbilical hernia. Vasculature: Vascular structures are unremarkable. Lymph nodes: There is no pathologic adenopathy. IMPRESSION: Postsurgical changes about the stomach with small diaphragmatic/hiatal hernia, similar finding seen on the prior study; interval removal of esophageal stent and surgical drain; probable ileus, no obstruction; suboptimal position of the IUD in the lower uterine segment and cervix Additional nonemergent findings as described above.
[2018-01-30 22:59] VITALS: BP 142/85; PULSE 64; RESP 18; TEMP 98.8; O2SAT 99
== END 2018-01-30 23:00 | disposition home or self-care (01) ==
LOC: C.ER 19:13
DX: N39.0 Urinary tract infection, site not specified (principal); R10.9 Unspecified abdominal pain; Z30.431 Encounter for routine checking of intrauterine contraceptive device; I10 Essential (primary) hypertension
CPT/HCPCS: 74177; 80053; 81001; 83690; 84703; 85025; 85610; 85730; 96365; 96375; 99285; J1885; J2543; J7030; Q9967

== ENCOUNTER 2018-06-18 00:18 | Emergency (ER) | payer MEDICAID ==
[2018-06-18 00:18] VITALS: BMI 45.3
[2018-06-18 00:30] VITALS: RESP 18
[2018-06-18] MEDS ORDERED: Sodium Chloride 0.9% 1,000 ML IV ONE (01:06)
--- NOTE | 2018-06-18 01:20 | C.PDOC ---
History Of Present Illness 27 year old female presents to the ED c/o sudden onset left lateral posterior wall pain that started tonight. Patient reports pain worsens with movement and deep breathing. Patient denies injury, fall, trauma, fever, chills, nausea, vomit, dysuria, hematuria. Chief Complaint (Nursing): Back Pain History Per: Patient History/Exam Limitations: no limitations Onset/Duration Of Symptoms: Sudden Onset Current Symptoms Are (Timing): Still Present Quality Of Discomfort: "Pain" Previous Symptoms: Back Pain Exacerbating Factor(s): Movement Recent travel outside of the [place]: No Additional History Per: Patient Past Medical History Reviewed: Historical Data, Nursing Documentation, Vital Signs Vital Signs: Last Vital Signs Temp 99 F 06/18/18 00:27 Pulse 73 06/18/18 00:27 Resp 18 06/18/18 00:27 BP 153/100 H 06/18/18 00:27 Pulse Ox 99 06/18/18 00:27 - Medical History PMH: HTN Denies: Chronic Kidney Disease Surgical History: No Surg Hx - [facility] Procedures INSERTION OF INFUSION DEV INTO R BASILIC VEIN, PERC APPROACH (09/08/16) MANUAL ASSIST DELIV NEC (05/14/15) REPAIR OB LACERATION NEC (05/14/15) Family History: States: Unknown Family Hx - Social History Hx Tobacco Use: No Hx Alcohol Use: No Hx Substance Use: No - Immunization History Hx Tetanus Toxoid Vaccination: No Hx Influenza Vaccination: No Hx Pneumococcal Vaccination: No Review Of Systems Constitutional: Negative for: Fever, Chills Cardiovascular: Negative for: Chest Pain Respiratory: Negative for: Shortness of Breath Gastrointestinal: Negative for: Nausea, Vomiting, Abdominal Pain Musculoskeletal: Positive for: Back Pain Neurological: Negative for: Weakness, Numbness Physical Exam - Physical Exam Appears: Non-toxic, In Acute Distress (due to pain) Skin: Normal Color, Warm, Dry Head: Atraumatic, Normacephalic Eye(s): bilateral: Normal Inspection Oral Mucosa: Moist Neck: Normal ROM, Supple Chest: Symmetrical Cardiovascular: Rhythm Regular Respiratory: Normal Breath Sounds, No Rales, No Rhonchi, No Wheezing Gastrointestinal/Abdominal: Soft, No Tenderness, No Guarding, No Rebound Back: Other (tenderness posterior left lateral chest wall ) Extremity: Normal ROM, No Tenderness, No Swelling Neurological/Psych: Oriented x3, Normal Speech, Normal Cognition Gait: Steady ED Course And Treatment - Laboratory Results Result Diagrams: 06/18/18 02:02 06/18/18 02:02 ECG: Interpreted By Me, Viewed By Me ECG Rhythm: Sinus Rhythm ECG Interpretation: Normal, No Acute Changes Interpretation Of ECG: .nsr, normal tracings. Rate From EC O2 Sat by Pulse Oximetry: 99 (ON RA) Pulse Ox Interpretation: Normal - Radiology CXR: Interpreted by Me CXR Interpretation: Yes: No Acute Disease, Other (normal chest film). No: In filtrates Medical Decision Making Medical Decision Making: Plan: * EKG * Labs * CXR * IV fluids * Toradol 30 mg IVP * UA Disposition - Disposition Referrals: [facility] [Outside] Disposition: HOME/ ROUTINE Disposition Time: 02:51 Condition: STABLE Prescriptions: RX: Naproxen 375 mg PO TIDPC #20 tablet Instructions: Upper Back Pain (DC) Forms: Gen Discharge Inst Maltese, [facility] (Hungarian) Print Language: EMIRATI - POA Present On Arrival: None - Clinical Impression Clinical Impression: Thoracic back pain - Scribe Statement The provider has reviewed the documentation as recorded by the Scribe Aidan Vazquez All medical record entries made by the Scribe were at my direction and personally dictated by me. I have reviewed the chart and agree that the record accurately reflects my personal performance of the history, physical exam, medical decision making, and the department course for this patient. I have also personally directed, reviewed, and agree with the discharge instructions and disposition.
[2018-06-18] MEDS ORDERED: Sodium Chloride 0.9% 1,000 ML ONE (01:28)
[2018-06-18 02:07] LABS: BASO # 0.1 K/uL (0.0-0.2); BASO % 1.2 % (0.0-2.0); EOS # 0.2 K/uL (0.0-0.7); EOS % 2.4 % (0.0-4.0); HEMOGLOBIN 8.5 g/dL (11.0-16.0); LYMPH % 29.9 % (20.0-40.0); MEAN CELL VOLUME 64.3 fL (81.0-99.0); MEAN CORPUSCULAR HEMOGLOBIN 19.9 pg (27.0-31.0); MEAN CORPUSCULAR HGB CONC 30.9 g/dL (33.0-37.0); MEAN PLATELET VOLUME 8.8 fL (7.2-11.7); MONO # 0.8 K/uL (0.0-0.8); MONO % 11.8 % (0.0-10.0); NEUT # 3.7 K/uL (1.8-7.0); NEUT % 54.7 % (50.0-75.0); NRBC % 0.1 % (0.0-2.0); RBC 4.29 Mil/uL (3.80-5.20); RED CELL DISTRIBUTION WIDTH 17.2 % (11.5-14.5); WHITE BLOOD COUNT 6.7 K/uL (4.8-10.8)
[2018-06-18 02:22] LABS: ALB/GLOB RATIO 1.2 (1.0-2.1); ALBUMIN 4.2 g/dL (3.5-5.0); ALT/SGPT 44 U/L (9-52); AST/SGOT 33 U/L (14-36); BLOOD UREA NITROGEN 23 mg/dL (7-17); GFR NON-AFRICAN AMERICAN > 60
[2018-06-18 03:11] VITALS: BP 145/83; PULSE 69; TEMP 98; O2SAT 100
--- NOTE | 2018-06-18 08:57 | RAD ---
HISTORY: Chest pain COMPARISON: 02/09/2017. TECHNIQUE: Chest PA and lateral FINDINGS: LINES AND TUBES: None. LUNG AND PLEURA: The lungs are well inflated and clear. No pleural effusion or pneumothorax. HEART AND MEDIASTINUM: The heart is not enlarged. The hilar and mediastinal contours are within normal limits. SKELETAL STRUCTURES: The bony structures are within normal limits for the patient's age. VISUALIZED UPPER ABDOMEN: Normal. OTHER FINDINGS: None. IMPRESSION: No active pulmonary disease.
--- NOTE | 2018-06-19 20:16 | CARD ---
APPROVED REPORT Date of service: 06/18/2018 EKG Measurement Heart [id number] <Conclusion> Normal sinus rhythm Normal ECG
== END 2018-06-18 03:11 | disposition home or self-care (01) ==
LOC: C.ER 00:18
DX: M54.6 Pain in thoracic spine (principal); I10 Essential (primary) hypertension
CPT/HCPCS: 71046; 80053; 84484; 85025; 85378; 93005; 96374; 99284; J1885; J7030

== ENCOUNTER 2018-07-11 14:34 | Emergency (ER) | payer MEDICAID ==
[2018-07-11 14:35] VITALS: BMI 45.3
--- NOTE | 2018-07-11 17:27 | C.PDOC ---
History Of Present Illness 27-year-old female, presents to the emergency department with complaints of ten- day duration of pain to her left chest wall, which radiates up into her shoulder and into her upper back. Patient notes associated shortness of breath due to pain, and dizziness. States pain goes into her left breast but she has no breast swelling or discharge. She denies any nausea/vomiting, fever, symptoms, or any other associated symptoms. no other complaints at this time. Time Seen by Provider: 07/11/18 16:29 Chief Complaint (Nursing): Dizziness/Lightheaded History Per: Patient History/Exam Limitations: no limitations Past Medical History Reviewed: Historical Data, Nursing Documentation, Vital Signs Vital Signs: Last Vital Signs Temp 99.2 F 07/11/18 15:10 Pulse 78 07/11/18 15:10 Resp 18 07/11/18 15:10 BP 144/100 H 07/11/18 15:10 Pulse Ox 99 07/11/18 15:10 - Medical History PMH: HTN Denies: Chronic Kidney Disease - [facility] Procedures INSERTION OF INFUSION DEV INTO R BASILIC VEIN, PERC APPROACH (09/08/16) MANUAL ASSIST DELIV NEC (05/14/15) REPAIR OB LACERATION NEC (05/14/15) Family History: States: No Known Family Hx - Social History Hx Tobacco Use: No Hx Alcohol Use: No Hx Substance Use: No - Immunization History Hx Tetanus Toxoid Vaccination: Yes Hx Influenza Vaccination: Yes Hx Pneumococcal Vaccination: Yes Review Of Systems Constitutional: Negative for: Fever Cardiovascular: Positive for: Chest Pain Respiratory: Positive for: Shortness of Breath Skin: Negative for: Rash Neurological: Positive for: Dizziness Physical Exam - Physical Exam Appears: Non-toxic, No Acute Distress Skin: Warm, Dry, No Rash Head: Atraumatic Eye(s): bilateral: Normal Inspection, PERRL, EOMI Nose: Normal Oral Mucosa: Moist Lips: Normal Appearing Neck: Normal ROM, No Midline Cervical Tenderness, No Paracervical Tenderness, Supple Lymphatic: No Adenopathy, No Axilla Node Tenderness Chest: Symmetrical, Tenderness (left chest wall) Cardiovascular: Rhythm Regular, No Murmur Respiratory: Normal Breath Sounds, No Accessory Muscle Use Extremity: Normal ROM (in left shoulder), No Tenderness, No Deformity, No Swelling Pulses: Left Carotid: Normal, Right Carotid: Normal Neurological/Psych: Oriented x3, Normal Speech, Normal Cognition, Normal Cranial Nerves, Normal Motor, Normal Sensation ED Course And Treatment O2 Sat by Pulse Oximetry: 99 Pulse Ox Interpretation: Normal (RA) - Other Rad left shoulder X-Ray: Interpreted by Me Interpretation: no evidence of fracture or dislocation. Normal soft tissues Reevaluation Time: 18:19 Reassessment Condition: Improved Disposition Counseled Patient/Family Regarding: Studies Performed, Diagnosis, Need For Follo wup, Rx Given - Disposition Referrals: [facility] [Outside] Disposition: HOME/ ROUTINE Disposition Time: 18:20 Condition: IMPROVED Prescriptions: Ketorolac Tromethamine [Toradol] 10 mg PO QID PRN #20 tab PRN Reason: Pain, Moderate (4-7) Instructions: Muscle and Bone Pain (DC) Forms: [employer] ([place]) - Clinical Impression Clinical Impression: Musculoskeletal chest pain - Scribe Statement The provider has reviewed the documentation as recorded by the Scribe (Jhoan Dunaway) Provider Attestation: All medical record entries made by the Scribe were at my direction and personally dictated by me. I have reviewed the chart and agree that the record accurately reflects my personal performance of the history, physical exam, medical decision making, and the department course for this patient. I have also personally directed, reviewed, and agree with the discharge instructions and disposition.
--- NOTE | 2018-07-11 17:28 | RAD ---
PROCEDURE: Radiographs of the Left Shoulder HISTORY: pain without injury COMPARISON: None. FINDINGS: BONES: No acute displaced fracture. The distal clavicle and underlying ribs appear intact. JOINTS: No acute dislocation. SOFT TISSUES: Soft tissues appear unremarkable. No evidence of radiopaque foreign body. IMPRESSION: No acute displaced fracture or dislocation evident. If symptoms persist or if there is continued clinical concern, x-ray follow-up in 7-10 days should be considered.
[2018-07-11 17:57] VITALS: RESP 16
[2018-07-11 18:49] VITALS: BP 138/99; PULSE 66; TEMP 98.2; O2SAT 100
== END 2018-07-11 18:48 | disposition home or self-care (01) ==
LOC: C.ER 14:34
DX: R07.89 Other chest pain (principal)
CPT/HCPCS: 73030; 96372; 99285; J1885